=== PATIENT | female | born 1950 | race Caucasian/White ===

== ENCOUNTER 2023-07-16 18:57 | Emergency (ER) | payer MEDICARE, SELFPAY ==
[2023-07-16 19:04] VITALS: BP 105/61
[2023-07-16 20:00] VITALS: BP 99/76
[2023-07-16 20:26] VITALS: BMI 29.2
[2023-07-16 21:00] VITALS: BP 104/52
--- NOTE | 2023-07-16 21:03 | ED.GENMED ---
History of Present Illness
General
Chief Complaint: Weakness
Source: patient
Time Seen by Provider: 07/16/23 20:28
Travel History
Have you had any contact with someone who has COVID-19?: No
Do you have any symptoms of coronavirus? Fever > 100 degrees, chills, cough, shortness of breath, sore throat, loss of taste or smell, muscle aches, or headache?: No
History of Present Illness
History of Present Illness:
This patient is a 72-year-old female who presents to the ER with complaints of feeling like she has not really been able to eat or drink as well as usual for the last 3 to 4 weeks. She describes feeling nauseous, and feels that it is attributable
to the staff feeding her too fast. She alerted staff and was referred for GI follow-up. She saw a GI doctor and has had outpatient workup started, all unremarkable thus far. She denies fever, chills, chest pain dyspnea, abdominal pain. Patient
has colostomy with normal output. She also occasionally will have a bowel movement per rectum which she had this week. She denies pain with swallowing, sore throat, dyspnea, or other complaints
Past History
Past History
ED Past Medical History: HTN and Other (heart failure)
ED Past Surgical History: Bowel resection
Social History
Tobacco: Non-smoker
Alcohol: None
Drug: None
Living: jail
Phy Exam
Physical Exam
Physical Exam:
GENERAL: Alert , in no apparent distress
EYE: pupils equal and reactive
NECK: Supple, no significant adenopathy.
ENT: o/p clr, mm dry
CARDIAC: Regular rate and rhythm .
LUNGS: Clear breath sounds bilaterally, no acute respiratory distress, no wheezes/rales/rhonchi
ABDOMEN: Soft, obese, colostomy noted with normal brown output without blood without focal tenderness, no r/g
NEUROLOGICAL: Alert and oriented, grossly nonfocal
SKIN: Warm and dry, skin intact.
MUSCULOSKELETAL: No edema, well perfused.
PSYCH: Normal and appropriate interaction.
Course
Orders/Labs/Results
Orders:
Orders
07/16/23 19:08
Electrocardiogram (*1) Urgent
Reason for Study: Fatigue / Weakness
07/16/23 19:09
EKG- Treatment ONCE
07/16/23 22:37
Complete Blood Count/With Diff Urgent
Comprehensive Metabolic Panel Urgent
Troponin I Urgent
07/16/23 23:40
Sodium Zirconium Cyclosilicate [Lokelma] 10 gram PO NOW STA
Abnormal Lab Results
07/16/23
22:37
MCV 76.9 L fL
(81.0-99.0)
MCH 24.9 L pg
(27.0-31.0)
MCHC 32.3 L g/dL
(33.0-37.0)
RDW 17.2 H %
(11.5-14.5)
Abs Immat Gran (auto) 0.1 H 10^3/uL
(0-0.05)
Absolute Lymphs (auto) 1.0 L 10^3/uL
(1.2-3.4)
Immature Gran % 1.0 H %
(0-0.5)
Lymphocytes % 17.2 L %
(20.5-51.1)
Sodium 131 L mmol/L
(135-145)
Potassium 5.7 H mmol/L
(3.5-5.1)
Creatinine 0.4 L mg/dL
(0.6-1.0)
Calcium 10.4 H mg/dl
(8.4-10.2)
07/16/23 22:37
07/16/23 22:37
Vital Signs
Initial and Last Documented VS:
Initial Vital Signs
Pulse Resp BP Pulse Ox
84 17 105/61 98
07/16/23 19:04 07/16/23 19:04 07/16/23 19:04 07/16/23 19:04
Last Documented Vital Signs
Pulse Resp BP Pulse Ox
83 18 115/66 97
07/16/23 22:30 07/16/23 22:30 07/16/23 22:30 07/16/23 22:30
*Critical Care Note
Total Time (30-74mins, 75-104mins- exclusive of procedures): Not Applicable
Update Note
Update Note:
Patient presents to the Emergency Department with NAUSEA
Number and Complexity of Problems Addressed at the Encounter
� Chronic conditions affecting care:
� Acute Exacerbation and/or Progression of Chronic Illness:
� Differential Diagnosis included but not limited to: gastritis, gastroenteritis, etc.
Amount and/or Complexity of Data to be Reviewed and Analyzed
� I performed an independent evaluation of and my interpretation is:
EKG: Read by me, normal sinus rhythm, normal rate, normal axis, slightly prolonged QT, no widened QRS, etc. to suggest severe hyperkalemia
CT:
Xrays:
Laboratory Studies: Generally unremarkable, mild hyperkalemia noted. Medication list describes patient taking potassium supplement, she is advised to discontinue this until further notice
Other:
� Review of other/old records reveals:
� Clinical information was obtained by an independent historian:
� Prescriptions/Medications Considered but not given:
� Further testing considered but not performed:
Risk of Complications and/or Morbidity or Mortality of Patient Management
� Social determinants of health affecting care:
� Discussion with other providers (PCP, Hospitalists, Consultants, etc):
� Escalation of care including admission/observation vs risk of discharge considered: Patient comfortable here, pleasant, no acute symptoms, no vomiting, no abdominal tenderness. Mild hyperkalemia noted, will administer dose of
Lokelma here, advised to discontinue potassium supplements until further notice, discussed with patient importance of follow-up and reasons return to the ER
ED Attending Note
-
Portions of this chart may have been created with voice recognition software.� Occasional wrong word or��sound alike� substitutions may have occurred due to the inherent limitations of voice recognition software.
Discharge Plan
Departure
Patient Disposition: Home (Routine Discharge)
Date of Disposition: 07/16/23
Time of Disposition: 23:40
Patient with high blood pressure during this ER visit?: No
Condition: Good
Discharge Problem:
Nausea, mild hyperkalemia
Instructions: Hyperkalemia
Prescriptions:
No Action
methocarbamol 500 mg Tablet
500 mg PO Q12H PRN (Reason: muscle spasms)
acetaminophen 325 mg Tablet
650 mg PO Q6H PRN (Reason: mild pain/temp>100.4)
loperamide [Imodium A-D] 2 mg Capsule
2 mg PO Q8H PRN (Reason: loose stools)
ondansetron HCl [Zofran] 8 mg Tablet
8 mg PO Q8H PRN (Reason: nausea/vomiting)
amlodipine 5 mg Tablet
5 mg PO DAILY
cranberry extract 250 mg Capsule
500 mg PO BID
magnesium hydroxide [Milk of Magnesia] 400 mg/5 mL Suspension
30 ml PO DAILY PRN (Reason: if no bm x 3 days)
methotrexate sodium 2.5 mg Tablet
7.5 mg PO MO
phenazopyridine 100 mg Tablet
100 mg PO DAILY
torsemide 5 mg Tablet
5 mg PO DAILY
hydrocortisone 1 % Cream
1 applic TOPICAL Q12 PRN (Reason: itching on bilateral LEs)
ferrous sulfate 325 mg (65 mg iron) Tablet
325 mg PO DAILY
metoprolol tartrate 50 mg Tablet
50 mg PO BID
docusate sodium 100 mg Capsule
100 mg PO DAILY PRN (Reason: constipation)
gentamicin 0.1 % Cream
1 applic TOPICAL DAILY
Patient Comments:
07/16/2023: apply to abdominal woulds
folic acid 1 mg Tablet
1 mg PO DAILY
magnesium 250 mg Tablet
250 mg PO DAILY
hydroxychloroquine 200 mg Tablet
400 mg PO BID
simethicone 80 mg Tablet,Chewable
80 mg PO BID
guaifenesin 400 mg Tablet
400 mg PO BID
Saccharomyces boulardii [Probiotic (S.boulardii)] 250 mg Capsule
250 mg PO DAILY
duloxetine 60 mg Capsule,Delayed Release(Dr/Ec)
60 mg PO DAILY
diclofenac sodium 1 % Gel
2 g TOPICAL BID
Patient Comments:
07/16/2023: apply to lower back
melatonin 5 mg Tablet
5 mg PO HS
cholecalciferol (vitamin D3) 1,250 mcg (50,000 unit) Tablet
1,250 mcg PO TH
potassium chloride 20 mEq Tablet Extended Release
20 meq PO DAILY
Tacrolimus 0.1% cream
1 applic topical DAILY
Patient Comments:
07/16/2023: apply to abdominal wounds. mix with gentamicin compound
Referrals:
Shiv Hall, DO [Family Provider] -
Activity Restrictions/Additional Instructions:
IF YOU ARE TAKING POTASSIUM SUPPLEMENTS, YOU SHOULD DISCONTINUE THEM FOR THE NEXT 3 DAYS. YOU SHOULD HAVE YOUR POTASSIUM CHECKED IN 3 DAYS AND YOUR DOCTOR WILL DISCUSS WITH YOU A PLAN REGARDING IF/WHEN TO RESUME POTASSIUM.
IF YOU DEVELOP RECURRENT VOMITING, BLEEDING, CHEST PAIN, TROUBLE BREATHING, FEVER, ABDOMINAL PAIN, OR OTHER WORRISOME SIGNS, GO TO THE ER IMMEDIATELY!
Interventions
Interventions:
*Risk Screen - Suicide Last Done: 07/16/23 20:26
*General Assessment Last Done: 07/16/23 19:09
*Neglect/Abuse Screening Last Done: 07/16/23 20:26
ED- Fall Risk Assessment Last Done: 07/16/23 19:09
*ED COVID-19 Vaccine History Last Done: 07/16/23 19:09
ED- Cardiac Assessment Last Done: 07/16/23 19:09
ED- Neurological Assessment Last Done: 07/16/23 19:09
ED- Pulmonary Assessment Last Done: 07/16/23 19:09
Discharge Date and Time
Print Language: NEPALESE
[2023-07-16 22:30] VITALS: BP 115/66
[2023-07-16 22:46] LABS: % Basophils 0.5 % (0-2); % Lymphocytes 17.2 % (20.5-51.1); % Monocytes 8.3 % (1.7-9.3); Absolute Immature Granulocytes 0.1 10^3/uL (0-0.05); Absolute Monocytes 0.5 10^3/uL (0.1-0.6); Absolute Neutrophils 4.4 10^3/uL (1.4-6.5); Hematocrit 39.3 % (37.0-47.0); Hemoglobin 12.7 g/dL (12.0-16.0); Mean Corp Hgb Conc. 32.3 g/dL (33.0-37.0); Mean Corpuscular Hgb 24.9 pg (27.0-31.0); Mean Corpuscular Volume 76.9 fL (81.0-99.0); Mean Platelet Volume 9.5 fL (7.4-10.4); Nucleated Red Blood Cells % 0 %; Platelet Count 220 10^3/uL (130-400); Red Blood Cell Count 5.11 10^6/uL (4.20-5.40); Red Cell Dist. Width 17.2 % (11.5-14.5); White Blood Cell Count 6.1 10^3/uL (4.8-10.8)
[2023-07-16 23:00] VITALS: BP 111/54
[2023-07-16 23:03] LABS: ALT (SGPT) < 10 U/L (0-35); AST (SGOT) 26 U/L (14-36); Albumin 3.5 g/dl (3.5-5.0); Alkaline Phosphatase 102 U/L (38-126); Blood Urea Nitrogen 16 mg/dl (7-17); Calcium 10.4 mg/dl (8.4-10.2); Carbon Dioxide 23 mmol/L (22-30); Chloride 103 mmol/L (98-107); Estimated Creatinine Clearance 80 ml/min; Glucose 81 mg/dl (70-99); Potassium 5.7 mmol/L (3.5-5.1); Sodium 131 mmol/L (135-145); Total Bilirubin 0.4 mg/dl (0.2-1.3); Total Protein 6.5 g/dl (6.3-8.2); eGFR > 60.00
[2023-07-16 23:14] LABS: Troponin I 0.016 ng/ml
[2023-07-17] VITALS: BP 105/56
[2023-07-17] MEDS: LOKELMA 10 GRAM PO (00:26)
== END 2023-07-17 01:49 | disposition home or self-care (01) ==
LOC: EMR 18:57
PROVIDERS: Emergency Medicine; EMERGENCY PHYSICIAN Emergency Medicine; FAMILY PHYSICIAN Internal Medicine
DX: R11.0 Nausea (principal); E87.5 Hyperkalemia; I11.0 Hypertensive heart disease with heart failure; I50.9 Heart failure, unspecified; Z93.3 Colostomy status
CPT/HCPCS: 99283; 80053; 84484; 85025; 93005

== ENCOUNTER 2023-07-28 14:08 | Emergency (ER) | payer MEDICARE, SELFPAY ==
[2023-07-28] VITALS (10 sets, daily range): BP systolic 80–106; BP diastolic 28–64; BMI 29.1
[2023-07-28 14:32] LABS: % Basophils 0.8 % (0-2); % Immature Granulocytes 2.2 % (0-0.5); % Lymphocytes 21.6 % (20.5-51.1); % Monocytes 9.4 % (1.7-9.3); Absolute Immature Granulocytes 0.1 10^3/uL (0-0.05); Absolute Lymphocytes 1.1 10^3/uL (1.2-3.4); Absolute Monocytes 0.5 10^3/uL (0.1-0.6); Absolute Neutrophils 3.3 10^3/uL (1.4-6.5); Hematocrit 38.8 % (37.0-47.0); Hemoglobin 12.3 g/dL (12.0-16.0); Mean Corp Hgb Conc. 31.7 g/dL (33.0-37.0); Mean Corpuscular Hgb 24.5 pg (27.0-31.0); Mean Corpuscular Volume 77.1 fL (81.0-99.0); Mean Platelet Volume 9.3 fL (7.4-10.4); Nucleated Red Blood Cells % 0 %; Platelet Count 291 10^3/uL (130-400); Red Blood Cell Count 5.03 10^6/uL (4.20-5.40); Red Cell Dist. Width 17.1 % (11.5-14.5)
[2023-07-28 15:54] LABS: ALT (SGPT) < 10 U/L (0-35); AST (SGOT) 26 U/L (14-36); Albumin 3.2 g/dl (3.5-5.0); Alkaline Phosphatase 89 U/L (38-126); Blood Urea Nitrogen 18 mg/dl (7-17); Calcium 10.3 mg/dl (8.4-10.2); Carbon Dioxide 24 mmol/L (22-30); Chloride 105 mmol/L (98-107); Estimated Creatinine Clearance 76 ml/min; Glucose 86 mg/dl (70-99); Potassium 5.3 mmol/L (3.5-5.1); Sodium 134 mmol/L (135-145); Total Bilirubin 0.3 mg/dl (0.2-1.3); Total Protein 6.3 g/dl (6.3-8.2); eGFR > 60.00
--- NOTE | 2023-07-28 16:19 | ED.GENMED ---
History of Present Illness
General
Chief Complaint: Abdominal Symptoms
Time Seen by Provider: 07/28/23 15:16
Travel History
Have you had any contact with someone who has COVID-19?: No
Do you have any symptoms of coronavirus? Fever > 100 degrees, chills, cough, shortness of breath, sore throat, loss of taste or smell, muscle aches, or headache?: No
History of Present Illness
History of Present Illness:
72-year-old female with history of hypertension, hyperlipidemia, and rheumatoid arthritis presents to the emergency department for evaluation of abdominal pain over the past week as well as rectal stool output during that time. She states she has
had infrequent episodes of rectal bowel movements but never lasted more than a day, this has been consistent for the past week. She also feels as though her ileostomy output is increased. She was seen in this emergency department just over 1 week
ago for nausea and continually feels nauseous and has poor oral intake as a result. She is not certain why she has an ileostomy or what the initial surgery was performed for, states this was done initially about 10 years ago at [facility]
[place]
Past History
Past History
ED Past Medical History: HTN and Other (heart failure)
ED Past Surgical History: Bowel resection
Social History
Tobacco: Non-smoker
Alcohol: None
Drug: None
Living: [facility]
Review of Systems
Review of Systems
Allergies reviewed?: Yes
All Other Systems: ROS reviewed and negative except as documented in HPI and ROS
Phy Exam
Physical Exam
Physical Exam:
GEN: Well appearing, NAD, WDWN
Eyes: PERRLA, EOMs intact, no scleral icterus
HENT: NCAT, oral mucosa moist
Lungs: CTAB, no wheezes, rales, rhonchi, normal chest wall excursion
Cardiac: RRR, no M/R/G, no peripheral edema. Radial pulses 2+ bilat
Abdomen: Obesity limits exam, she has moderate suprapubic and left lower quadrant tenderness, no rigidity
Neuro: AO x 3
MSK: No gross deformity or ecchymosis. No edema. No digital clubbing
Skin: No rashes, petechiae. Normal color, no pallor or jaundice.
Psych: Calm, cooperative, proper hygiene
Course
Orders/Labs/Results
Orders:
Orders
07/28/23 14:21
Complete Blood Count/With Diff Urgent
07/28/23 15:33
CT Abd/Pel (IV only)-DH only Urgent
Comment:
Reason For Exam: abd pain, hx of colostomy, discharge from rectum
Comprehensive Metabolic Panel Urgent
Abnormal Lab Results
07/28/23 07/28/23
14:21 15:33
MCV 77.1 L fL
(81.0-99.0)
MCH 24.5 L pg
(27.0-31.0)
MCHC 31.7 L g/dL
(33.0-37.0)
RDW 17.1 H %
(11.5-14.5)
Abs Immat Gran (auto) 0.1 H 10^3/uL
(0-0.05)
Absolute Lymphs (auto) 1.1 L 10^3/uL
(1.2-3.4)
Immature Gran % 2.2 H %
(0-0.5)
Monocytes % 9.4 H %
(1.7-9.3)
Sodium 134 L mmol/L
(135-145)
Potassium 5.3 H mmol/L
(3.5-5.1)
BUN 18 H mg/dl
(7-17)
Creatinine 0.5 L mg/dL
(0.6-1.0)
Calcium 10.3 H mg/dl
(8.4-10.2)
Albumin 3.2 L g/dl
(3.5-5.0)
07/28/23 14:21
07/28/23 15:33
Vital Signs
Initial and Last Documented VS:
Initial Vital Signs
Temp Pulse Resp Pulse Ox
98.1 F 74 18 98
07/28/23 14:11 07/28/23 14:11 07/28/23 14:11 07/28/23 14:11
Last Documented Vital Signs
Temp Pulse Resp BP Pulse Ox
98.1 F 73 12 98/47 98
07/28/23 14:11 07/28/23 16:15 07/28/23 16:15 07/28/23 16:00 07/28/23 14:11
MDM/Problems Addressed
MDM/Problems Addressed:
Patient is found to have descending colitis, uncertain etiology to this given that she has an ileostomy. We attempted to obtain a stool specimen in the emergency department however we were unsuccessful. Do not feel that sending an ileostomy
specimen would be appropriate. Her labs are reassuring, her potassium is improved since her last visit. She will continue to hold potassium supplementation at home. Antibiotic options limited due to medication interactions, given multitude of QT
prolonging agents we will avoid fluoroquinolones. Will start her on Augmentin, advised nursing facility to hold her next dose of methotrexate due to interaction. Ideally they would also collect a stool specimen however would not be overly
optimistic given the lack of reliability of rectal stool output in this case. In regards to her nausea I would expect this to improve with antibiotic treatment for her colitis. She is suitable for outpatient management does not require
hospitalization
*Critical Care Note
Total Time (30-74mins, 75-104mins- exclusive of procedures): Not Applicable
ED Attending Note
-
Portions of this chart may have been created with voice recognition software.� Occasional wrong word or��sound alike� substitutions may have occurred due to the inherent limitations of voice recognition software.
Discharge Plan
Departure
Patient Disposition: Home (Routine Discharge)
Date of Disposition: 07/28/23
Time of Disposition: 18:01
Patient with high blood pressure during this ER visit?: No
Discharge Problem:
Colitis
Instructions: Colitis (DC)
Prescriptions:
New
amoxicillin-pot clavulanate 875-125 mg tablet
1 tab PO BID 7 Days Qty: 14 0RF
No Action
methocarbamol 500 mg Tablet
500 mg PO Q12H PRN (Reason: muscle spasms)
acetaminophen 325 mg Tablet
650 mg PO Q6H MDD 3000 mg PRN (Reason: mild pain/temp>100.4)
ondansetron HCl [Zofran] 8 mg Tablet
8 mg PO Q8H PRN (Reason: nausea/vomiting)
amlodipine 5 mg Tablet
5 mg PO DAILY
cranberry extract 250 mg Capsule
500 mg PO BID
magnesium hydroxide [Milk of Magnesia] 400 mg/5 mL Suspension
30 ml PO DAILY PRN (Reason: if no BM x 3 days)
methotrexate sodium 2.5 mg Tablet
7.5 mg PO DIRECTED
Rx Instructions:
07/28/2023, give 3 tablets by mouth two times a day every Friday for arthritis.
phenazopyridine 100 mg Tablet
100 mg PO DAILY
torsemide 5 mg Tablet
5 mg PO DAILY
hydrocortisone 1 % Cream
1 applic TOPICAL [id number] PRN (Reason: itching on bilateral LEs)
ferrous sulfate 325 mg (65 mg iron) Tablet
325 mg PO DAILY
metoprolol tartrate 50 mg Tablet
50 mg PO BID
Patient Comments:
07/28/2023, hold for SBP<100 or HR<60.
docusate sodium 100 mg Capsule
100 mg PO DAILY PRN (Reason: constipation)
gentamicin 0.1 % Cream
1 applic TOPICAL DAILY
folic acid 1 mg Tablet
1 mg PO DAILY
magnesium 250 mg Tablet
250 mg PO DAILY
hydroxychloroquine 200 mg Tablet
400 mg PO BID
simethicone 80 mg Tablet,Chewable
80 mg PO BID
guaifenesin 400 mg Tablet
400 mg PO BID
duloxetine 60 mg Capsule,Delayed Release(Dr/Ec)
60 mg PO DAILY
Rx Instructions:
07/28/2023, take with 30 mg for a total of 90 mg.
diclofenac sodium 1 % Gel
2 - 4 g TOPICAL BID
cholecalciferol (vitamin D3) 1,250 mcg (50,000 unit) Tablet
1,250 mcg PO TH
Tacrolimus 0.1% 0.1 % cream
1 applic topical DAILY
Patient Comments:
07/28/2023: apply to abdominal wounds; mix with gentamicin compound.
loperamide [Imodium A-D] 2 mg Tablet
4 mg PO Q8HPRN PRN (Reason: loose stools)
potassium chloride 20 mEq tablet,ER particles/crystals
20 meq PO DAILY
duloxetine 30 mg Capsule,Delayed Release(Dr/Ec)
30 mg PO DAILY
Rx Instructions:
07/28/2023, take with 60 mg for a total of 90 mg.
melatonin 5 mg Capsule
5 mg PO HS
Referrals:
NONE,* [Family Provider] -
Activity Restrictions/Additional Instructions:
If possible, a stool culture should be sent before she starts the Augmentin. This was attempted in the ER without success. A specimen must be sent from the rectum, NOT THE ILEOSTOMY
Johanna's next dose of METHOTREXATE should be held due to interaction with Augmentin
Interventions
Interventions:
*General Assessment Last Done: 07/28/23 14:11
*Neglect/Abuse Screening Last Done: 07/28/23 14:11
ED- Fall Risk Assessment Last Done: 07/28/23 14:11
*ED COVID-19 Vaccine History Last Done: 07/28/23 14:11
WX-Wgbwxp-Nnjckelskw Assessment Last Done: 07/28/23 14:11
Discharge Date and Time
Print Language: TURKMEN
[2023-07-28] MEDS: NSS 500 IV (19:22)
== END 2023-07-28 19:55 | disposition home or self-care (01) ==
LOC: EMR 14:08
PROVIDERS: Emergency Medicine; EMERGENCY PHYSICIAN Emergency Medicine
DX: K52.9 Noninfective gastroenteritis and colitis, unspecified (principal); I11.0 Hypertensive heart disease with heart failure; I50.89 Other heart failure; M06.9 Rheumatoid arthritis, unspecified; E78.5 Hyperlipidemia, unspecified
CPT/HCPCS: 99285; 96360; 74177; 80053; 85025; Q9967

== ENCOUNTER 2023-08-13 18:31 | Inpatient (IN) | payer MEDICARE, SELFPAY ==
[2023-08-13 15:33] VITALS: BP 103/65; BMI 25.8
--- NOTE | 2023-08-13 15:48 | ED.GENMED ---
History of Present Illness
General
Chief Complaint: Swallowing Problem
Source: patient
Time Seen by Provider: 08/13/23 15:31
Travel History
Have you had any contact with someone who has COVID-19?: No
Do you have any symptoms of coronavirus? Fever > 100 degrees, chills, cough, shortness of breath, sore throat, loss of taste or smell, muscle aches, or headache?: No
History of Present Illness
History of Present Illness:
72-year-old female presents from [facility] with worsening and ongoing dysphagia. She states has been going on for 7 weeks. She states she is losing weight. She is really only able to tolerate water and nothing else solid. She gags at times
eats. She denies fevers or shortness of breath. Nurses called EMS from facility and brought her here for evaluation. She denies pain in her throat when swallowing. She denies abdominal pain currently. No other complaints at this time
Past History
Past History
ED Past Medical History: HTN and Other (heart failure)
ED Past Surgical History: Bowel resection
Social History
Tobacco: Non-smoker
Alcohol: None
Drug: None
Living: pen[facility]
Phy Exam
Physical Exam
Physical Exam:
General: Pale appearing female no acute respiratory distress
HEENT: Normocephalic atraumatic posterior pharynx without erythema neck is supple
Heart: Regular rate and rhythm no murmurs
Lungs: Clear no wheeze or rales
Abdomen: Soft nontender nondistended no guarding or rebound
Extremities: No cyanosis
Course
Orders/Labs/Results
Orders:
Orders
08/13/23 15:54
Complete Blood Count/With Diff Urgent
Comprehensive Metabolic Panel Urgent
Ferritin Urgent
Comment: ADD ON
Folate Urgent
Comment: ADD ON
Iron Urgent
Comment: ADD ON
Manual Differential Urgent
Total Iron Binding Urgent
Comment: ADD ON
Vitamin B12 Urgent
Comment: ADD ON
08/13/23 17:26
Add On- LAB Urgent
Tests Added?: iron tibc, ferritin ,b12 folate
08/13/23 17:55
Admit/Transfer Patient As Directed
Co-Sign Provider:
Level of Care: Inpatient admission
Assign to:: Medical/Surgical
Physician / Group: hal tate
Diagnosis: Acute dysphagia, oral thrush, recent C. difficile
Reason for Hospitalization: Acute dysphagia, oral thrush, recent C. difficile
Expected length of stay greater than two midnights?: Yes
ELOS- Estimated Length of Stay in days: 3
I certify the patient meets the requirements for IP care: Yes
Code Status As Directed
Resuscitation Status: Full Code
08/13/23 18:[address] Non Medication Order As Directed
Physician Order: meds crushed with pudding
08/13/23 18:09
GASTROINTESTINAL CONSULT Routine
Consulting Provider: Enedina Sidhu
Was physician already notified: Yes
Reason for consult: Dysphagia
08/13/23 18:34
0.9% Sodium Chloride 1000 ml [Nss] 1,000 ml IV 60 mls/hr
08/13/23 18:34
Activity As Directed
Activity Level: Bedrest
Comment: pt is bedbound
Intake/ Output As Directed
Frequency: Per unit guidelines
Vital Signs As Directed
Frequency: Per unit guidelines
Weight As Directed
Frequency: Daily
Ot Eval And Treat Routine
Pt Eval And Treat Routine
Treatment: pt is bedbound
Activity Level: Bedrest
DX Deep Vein Thrombosis Video Routine
08/13/23 18:45
Enoxaparin Sodium [Lovenox] 40 mg SC QPM
Vancomycin HCl [Firvanq] 125 mg PO Q6
08/13/23 20:00
Diclofenac 1% Topical Gel 2 - 4 gram TOPICAL BID
Apply 2 or 4 grams as per protocol to the following joints:: Other joint(s)
Other joint/location to apply to:: back
Grams to be applied to other indicated joint/location:: 2gm
Hydroxychloroquine [Plaquenil] 400 mg PO BID
Metoprolol [Lopressor] 50 mg PO BID
08/13/23 22:00
Nystatin Suspension [Mycostatin Oral Suspension] 5 ml PO QID
08/14/23 07:53
Basic Metabolic Panel IN AM
Complete Blood Count/With Diff IN AM
08/14/23 08:00
Duloxetine Delayed Release [Cymbalta Delayed Release] 30 mg PO DAILY
Duloxetine Delayed Release [Cymbalta Delayed Release] 60 mg PO DAILY
Pantoprazole [Protonix IV] 40 mg IV DAILY
08/14/23 18:06
CR Chest - 2 Views Urgent
Reason For Exam: dysphagia
08/15/23 06:00
Basic Metabolic Panel IN AM
Complete Blood Count/With Diff IN AM
Abnormal Lab Results
08/13/23
15:54
WBC 3.0 L 10^3/uL
(4.8-10.8)
Hgb 10.8 L g/dL
(12.0-16.0)
Hct 35.6 L %
(37.0-47.0)
MCV 80.2 L fL
(81.0-99.0)
MCH 24.3 L pg
(27.0-31.0)
MCHC 30.3 L g/dL
(33.0-37.0)
RDW 17.5 H %
(11.5-14.5)
Monocytes (Manual) 12 H %
(2-9)
Sodium 132 L mmol/L
(135-145)
Carbon Dioxide 21 L mmol/L
(22-30)
Creatinine 0.4 L mg/dL
(0.6-1.0)
TIBC 214 L ug/dl
(265-497)
% Saturation 18 L %
(20-50)
Alkaline Phosphatase 264 H U/L
(38-126)
Total Protein 5.9 L g/dl
(6.3-8.2)
Albumin 2.9 L g/dl
(3.5-5.0)
Folate > 20.0 H ng/ml
(2.76-20)
08/13/23 15:54
08/13/23 15:54
Vital Signs
Initial and Last Documented VS:
Initial Vital Signs
Temp Pulse Resp BP Pulse Ox
98.4 F 96 22 103/65 100
08/13/23 15:33 08/13/23 15:33 08/13/23 15:33 08/13/23 15:33 08/13/23 15:33
Last Documented Vital Signs
Temp Pulse Resp BP Pulse Ox
98.1 F 79 16 107/49 98
08/14/23 07:00 08/14/23 08:15 08/14/23 07:00 08/14/23 08:15 08/14/23 07:00
MDM/Problems Addressed
Differential Diagnosis Includes:
Ongoing difficulty swallowing. Question mechanical issue versus neurologic issue. On question reflux. She is able to drink water but has poor success with solid food. She notes she is losing weight. Will check for electrolyte abnormality or
anemia.
*Critical Care Note
Total Time (30-74mins, 75-104mins- exclusive of procedures): Not Applicable
Update Note
Update Note:
Discussed with emergency room attending as well as GI. GI recommended esophagram. Esophagram ordered however test not able to be done at this hour. Patient has a noted 9 pound weight loss in 2 weeks as well as a over a gram drop in her hemoglobin
since 2 weeks ago. COVID to hospital for weight loss in the setting of worsening dysphagia
ED Attending Note
-
Portions of this chart may have been created with voice recognition software.� Occasional wrong word or��sound alike� substitutions may have occurred due to the inherent limitations of voice recognition software.
Discharge Plan
Departure
Patient Disposition: Admit
Date of Disposition: 08/13/23
Time of Disposition: 17:17
Admit to: Med/Surg and Telemetry
Presentation/result/management discussed w/ accepting MD/DO: Hospitalist
Discharge Problem:
Dysphagia
Interventions
Interventions:
*Risk Screen - Suicide Last Done: 08/13/23 15:37
*General Assessment Last Done: 08/13/23 15:37
*Neglect/Abuse Screening Last Done: 08/13/23 15:37
ED- Fall Risk Assessment Last Done: 08/13/23 18:33
*ED COVID-19 Vaccine History Last Done: 08/13/23 15:37
*Nursing Disposition Last Done: 08/13/23 18:33
ED-EENT Assessment Last Done: 08/13/23 15:50
SN-Lwkrkr-Vntrkcnira Assessment Last Done: 08/13/23 15:51
ED- Pulmonary Assessment Last Done: 08/13/23 15:50
ED- Neurological Assessment Last Done: 08/13/23 15:50
Discharge Date and Time
Discharge Date/Time: 08/13/23 18:34
[2023-08-13 16:04] LABS: Hematocrit 35.6 % (37.0-47.0); Hemoglobin 10.8 g/dL (12.0-16.0); Mean Corp Hgb Conc. 30.3 g/dL (33.0-37.0); Mean Corpuscular Hgb 24.3 pg (27.0-31.0); Mean Corpuscular Volume 80.2 fL (81.0-99.0); Platelet Count 214 10^3/uL (130-400); Red Blood Cell Count 4.44 10^6/uL (4.20-5.40); Red Cell Dist. Width 17.5 % (11.5-14.5)
[2023-08-13 16:17] LABS: ALT (SGPT) 12 U/L (0-35); AST (SGOT) 29 U/L (14-36); Albumin 2.9 g/dl (3.5-5.0); Alkaline Phosphatase 264 U/L (38-126); Blood Urea Nitrogen 16 mg/dl (7-17); Calcium 9.9 mg/dl (8.4-10.2); Carbon Dioxide 21 mmol/L (22-30); Chloride 104 mmol/L (98-107); Estimated Creatinine Clearance 71 ml/min; Glucose 93 mg/dl (70-99); Potassium 3.9 mmol/L (3.5-5.1); Sodium 132 mmol/L (135-145); Total Bilirubin 0.4 mg/dl (0.2-1.3); Total Protein 5.9 g/dl (6.3-8.2); eGFR > 60.00
[2023-08-13 16:40] LABS: Absolute Neutrophils -Man Diff 1.5 10^3/uL (1.4-6.5); Band Neutrophils 0 % (0-3); Lymphocytes 35 % (20-51); Metamyelocytes 1 % (-); Monocytes 12 % (2-9); Myelocytes 1 % (-); Normal RBC Morphology Yes; Platelets Checked Yes; Segmented Neutrophils 51 % (42-75); Total Cells Counted 100
--- NOTE | 2023-08-13 17:21 | HPS.HSE ---
Family Physician
-
Family Physician: Shiv Hall, DO
Chief Complaint
-
Acute on chronic dysphagia unable to tolerate solids only water and mashed potatoes, weight loss
History of Present Illness
72-year-old female from [facility] with acute on chronic dysphagia. She typically is able to tolerate a dysphagia diet but can only tolerate water and mashed potatoes over the past month. She reportedly prior to 1 month ago had a
swallow eval and was placed on a mechanical soft diet but she states the penitentiary was not really giving it to her. She also can drink Ensure 8 ounces daily with help. She reports she has been coughing and choking with her medications crushed
in applesauce but they have not tried any pudding. She has white thrush appearing tongue but denies any painful swallowing although when she swallows she said as soon as it hits her esophagus area that is when she has difficulty swallowing the food
and coughs it up. She has had a 9 pound weight loss in the past 2 weeks. She reports she had C. difficile and has been on oral vancomycin starting 08/06 - 08/17/2023. She is past medical history of hypertension, bowel resection with ostomy, CHF,
HTN, HLD, GERD, rheumatoid arthritis with deformities of all fingers at PIP joints, only able to lift arms to clavicle area bilaterally, depression, nonambulatory, chronic external rotation right hip
Medical History
Past Medical History
Past Medical History: Reports Other
Additional Past Medical History:
Chronic dysphagia
C. difficile on oral Vanco 08/06 - 08/17/2023
hypertension
HLD
CHF
GERD
RA on methotrexate with deformities of all fingers at PIP joints, only able to lift arms to clavicle area bilaterally,
Depression
bowel resection with ostomy
Past Surgical History: Reports Other
Additional Past Surgical History:
Knee surgery
Bilateral hip replacements with chronic right foot external rotation
Shoulder surgery
Bowel resection with colostomy
Back surgery
Cholecystectomy
Social History
Tobacco: Non-smoker
Alcohol: None
Drug: None
Personal: Single
Living: Residential ([facility])
Employment: Retired
Family History
Family History: Not pertinent
Allergies / Home Medications
Allergies reflects when Allergies were last updated in [facility].
Home Medications with original date entered in [facility]
Allergy/Medication List:
Allergies
Allergy/AdvReac Type Severity Reaction Status Date / Time
No Known Allergies Allergy Verified 07/28/23 19:17
Home Medications
Tacrolimus 0.1% 1 applic topical DAILY abd wounds 07/16/23
acetaminophen 325 mg tablet 650 mg PO Q6H PRN mild pain/temp>100.4 07/16/23
amlodipine 5 mg tablet 5 mg PO DAILY 07/16/23
diclofenac sodium 1 % topical gel 2 - 4 g topical BID lower back 07/16/23
docusate sodium 100 mg capsule 100 mg PO DAILY PRN constipation 07/16/23
duloxetine 60 mg capsule,delayed release 60 mg PO DAILY 07/16/23
folic acid 1 mg tablet 1 mg PO DAILY 07/16/23
gentamicin 0.1 % topical cream 1 applic topical DAILY abd wounds 07/16/23
hydrocortisone 1 % topical cream 1 applic topical [id number] PRN itching on bilateral LEs 07/16/23
hydroxychloroquine 200 mg tablet 400 mg PO BID 07/16/23
magnesium hydroxide 400 mg/5 mL oral suspension (Milk of Magnesia) 30 ml PO DAILY PRN if no BM x 3 days 07/16/23
methocarbamol 500 mg tablet 500 mg PO Q12H PRN muscle spasms 07/16/23
methotrexate sodium 2.5 mg tablet 7.5 mg PO MO 07/16/23
metoprolol tartrate 50 mg tablet 50 mg PO BID 07/16/23
ondansetron HCl 8 mg tablet 8 mg PO Q8H PRN nausea/vomiting 07/16/23
phenazopyridine 100 mg tablet 100 mg PO DAILY 07/16/23
torsemide 5 mg tablet 5 mg PO DAILY 07/16/23
duloxetine 30 mg capsule,delayed release 30 mg PO DAILY 07/28/23
melatonin 5 mg capsule 5 mg PO HS 07/28/23
Saccharomyces boulardii 250 mg capsule 250 mg PO DAILY 08/13/23
colestipol 5 gram oral packet 2 g PO DAILY 08/13/23
vancomycin 125 mg capsule 125 mg PO QID 08/13/23
Review of Systems
-
History Source: Patient
A 12 point ROS was completed and negative except as noted: Yes
Constitutional: Reports Weight Loss (9 pounds in the past 2 weeks); Denies Fever or Chills
EENT: Reports Runny Nose and Other (Dysphagia, thrush to tongue); Denies Sore Throat
Respiratory: Denies Cough or Trouble Breathing
Cardiac: Denies Chest Pain, Diaphoresis, Palpitations or Syncope
Abdomen/GI: Reports Other (Ostomy present); Denies Abdominal Pain, Nausea, Vomiting, Diarrhea or Constipated
: Denies Dysuria, Frequency, Flank Pain or Incontinence
Musculoskeletal: Reports Other ( RA with deformities of all fingers at PIP joints, only able to lift arms to clavicle area bilaterally, chronic bedbound); Denies Joint Pain
Skin: Denies Itching or Rash
Neurological: Denies Dizzy, Headache or Weakness
Endocrine: Reports No Symptoms
Hematologic/Lymphatic: Reports No Symptoms
Psych: Reports Calm
Physical Exam
Vital Signs
Vital Signs
Temp Pulse Resp BP Pulse Ox
98.4 F 94 15 103/65 96
08/13/23 15:33 08/13/23 16:45 08/13/23 16:45 08/13/23 15:33 08/13/23 16:45
Physical Exam
General: No Pain, Fever or Chills
HEENT: NormoCephalic, Anicteric, PERRLA, No Ptosis and Other (Thrush appearance to tongue)
Respiratory: Clear; No Wheezes, Rales or Rhonchi
Cardiac: S1/S2 and Regular Rhythm
GI: Soft, Non Tender, Non Distended, Normal Bowel Sounds, No Hepatosplenomegaly and Ostomy
Rectal: Other (Ostomy present)
Musculoskeletal: No Clubbing, No Cyanosis, No Edema and Other ( RA with deformities of all fingers at PIP joints, only able to lift arms to clavicle area bilaterally, chronic bedbound)
Neuro: AO x 3 and Other ( RA with deformities of all fingers at PIP joints, only able to lift arms to clavicle area bilaterally unable to feed self without assistance); No Slurred Speech, Facial Droop or Tremors
Psych: Calm
Laboratory Results
-
08/13/23 15:54
08/13/23 15:54
Laboratory Results
Total Bilirubin 0.4 mg/dl (0.2-1.3) 08/13/23 15:54
AST 29 U/L (14-36) 08/13/23 15:54
ALT 12 U/L (0-35) 08/13/23 15:54
Alkaline Phosphatase 264 U/L (38-126) H 08/13/23 15:54
Impression/Plan
-
Impression/plan:
Admit to MedSurg
#Worsening dysphagia on chronic dysphagia
Was supposed to be on soft diet prior to 1 month ago with Ensure 8 ounces daily
#Weight loss 9 pounds past 2 weeks
N.p.o. except meds crushed with pudding
-Consult GI
-Esophogram in a.m.
-IV NSS
-IV PPI
-Check CXR
-Speech swallow eval
PT/OT/case management consult
#Oral thrush
-Nystatin swish and swallow
#C. difficile according to patient
Is on oral vancomycin 125 mg Q6 08/06 - 08/17/2023
#Anemia-microcytic likely due to lack of nutrition
Hgb 10.8 was 12.02 July 2023
-Will check iron panel, B12, folate
#Hypertension-benign
BP 103/55
Hold amlodipine 5 mg daily,
Continue metoprolol tartrate 50 mg twice daily with hold parameters
#Bedbound status due to deformities feet, weakness
Patient states they use Oleksandr lift to wheelchair occasionally
#HLD
No reported meds
#CHF chronic unknown type
I/O, daily weight
-Hold torsemide 5 mg daily
#GERD
Add IV PPI
#RA with deformities of all fingers at PIP joints, only able to lift arms to clavicle area bilaterally,
-Hold methotrexate takes on Mondays
-Continue hydroxychloroquine 400 mg twice daily
#Chronic lower back pain/spasms
-May apply topical diclofenac sodium
-Hold methocarbamol 500 every 12 hours
#Depression
-Continue duloxetine
#bowel resection with Ostomy
#Insomnia
-Hold melatonin
DVT prophylaxis
Subcu Lovenox
Full code patient states emergency contact is her one of her 3 daughters Justa
--- NOTE | 2023-08-13 18:09 | W.PN.UPDATE ---
Update Note
Progress Note Update
HPI: 72-year-old female from [facility] with PMH hypertension, bowel resection with ostomy, CHF, HTN, HLD, GERD, rheumatoid arthritis with deformities of fingers, depression, nonambulatory/bedbound state, p/w acute on chronic dysphagia.
She had been on pur�ed diet before, but can no longer tolerate it- she feels food stuck in her chest.
She also reports coughing with swallowing medications.
She has oral thrush on her tongue.
She has had a 9 pound weight loss in the past 2 weeks. She reports she had C. difficile and has been on oral vancomycin starting 08/06 through to 08/17/2023.
A/P:
# Acute on chronic dysphagia, associated with weight loss
SPL eval
Consult GI
Esophagram in a.m.
IVF while NPO
IV PPI
Check CXR to r/o extrinsic compression
# Oral thrush
Nystatin swish and swallow
# C. difficile according to patient
on oral vancomycin 125 mg Q6 08/06 - 08/17/2023
# Normocytic Anemia
Follow iron panel, B12, folate levels
# Hypertension benign
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
Continue metoprolol tartrate 50 mg twice daily with hold parameters
# Bedbound status due to extremities deformities from RA
# HLD
No reported meds
# CHF chronic unknown type
I/O, daily weight
Hold torsemide 5 mg daily
# GERD
IV PPI
# RA with finger deformities
Hold methotrexate takes on Mondays
Continue hydroxychloroquine 400 mg twice daily
# Chronic lower back pain/spasms
May apply topical diclofenac sodium
Hold methocarbamol 500 every 12 hours
# Depression
Mood stable
Continue duloxetine
# bowel resection with Ostomy
# Insomnia
Hold melatonin
DVT prophylaxis: Subcu Lovenox
Full code, patient states emergency contact is her one of her 3 daughters Justa
[2023-08-13 18:11] LABS: Iron 39 ug/dl (37-170)
[2023-08-13 18:19] LABS: Percent Saturation 18 % (20-50); Total Iron Binding Capacity 214 ug/dl (265-497)
[2023-08-13 18:53] VITALS: BP 110/90
[2023-08-13 19:30] LABS: Folate > 20.0 ng/ml (2.76-20); Vitamin B12 703 pg/ml (239-931)
[2023-08-13] MEDS: NSS 1000 IV (19:47)
[2023-08-13 19:49] VITALS: BMI 25.8
[2023-08-13 20:03] VITALS: BMI 25.4
[2023-08-13] MEDS: PLAQUENIL 400 MG PO (20:24)
[2023-08-13] MEDS: LOVENOX 40 MG SC (20:24)
[2023-08-13] MEDS: LOPRESSOR 50 MG PO (20:24)
[2023-08-13] MEDS: FIRVANQ 125 MG PO (20:24)
[2023-08-13] MEDS: DICLOFENAC 1% TOPICAL GEL 2 GRAM TOPICAL (20:25)
[2023-08-13] MEDS: MYCOSTATIN ORAL SUSPENSION 5 ML PO (20:26)
[2023-08-13 22:54] VITALS: BP 124/61
[2023-08-14] MEDS: FIRVANQ 125 MG PO ×5 (00:30→23:10)
[2023-08-14 06:00] VITALS: BMI 25.6
[2023-08-14 07:00] VITALS: BP 107/49
[2023-08-14 08:09] LABS: Hematocrit 31.1 % (37.0-47.0); Hemoglobin 9.6 g/dL (12.0-16.0); Mean Corp Hgb Conc. 30.9 g/dL (33.0-37.0); Mean Corpuscular Hgb 24.6 pg (27.0-31.0); Mean Corpuscular Volume 79.5 fL (81.0-99.0); Mean Platelet Volume 10.1 fL (7.4-10.4); Nucleated Red Blood Cells % 1.1 %; Platelet Count 170 10^3/uL (130-400); Red Blood Cell Count 3.91 10^6/uL (4.20-5.40); Red Cell Dist. Width 17.4 % (11.5-14.5); White Blood Cell Count 2.8 10^3/uL (4.8-10.8)
[2023-08-14] MEDS: CYMBALTA DELAYED RELEASE 30 MG PO (08:14)
[2023-08-14] MEDS: CYMBALTA DELAYED RELEASE 60 MG PO (08:14)
[2023-08-14] MEDS: MYCOSTATIN ORAL SUSPENSION 5 ML PO ×4 (08:15→21:36)
[2023-08-14] MEDS: LOPRESSOR 50 MG PO ×2 (08:15→19:45)
[2023-08-14] MEDS: PROTONIX IV 40 MG IV (08:16)
[2023-08-14] MEDS: NSS (PRESERVATIVE FREE) 10 ML IV (08:16)
[2023-08-14] MEDS: DICLOFENAC 1% TOPICAL GEL 2 GRAM TOPICAL ×2 (08:16→19:44)
[2023-08-14] MEDS: PLAQUENIL 400 MG PO ×2 (08:22→19:45)
[2023-08-14 08:35] LABS: Eosinophils 1 % (0-6); Lymphocytes 33 % (20-51); Monocytes 14 % (2-9); Segmented Neutrophils 52 % (42-75)
[2023-08-14 08:39] LABS: Absolute Neutrophils -Man Diff 1.4 10^3/uL (1.4-6.5); Band Neutrophils 0 % (0-3); Normal RBC Morphology Yes; Platelets Checked Yes; Total Cells Counted 100
[2023-08-14 08:40] LABS: Blood Urea Nitrogen 13 mg/dl (7-17); Calcium 9.4 mg/dl (8.4-10.2); Carbon Dioxide 19 mmol/L (22-30); Chloride 109 mmol/L (98-107); Estimated Creatinine Clearance 71 ml/min; Glucose 81 mg/dl (70-99); Potassium 3.7 mmol/L (3.5-5.1); Sodium 135 mmol/L (135-145); eGFR > 60.00
--- NOTE | 2023-08-14 09:27 | CON.GI ---
Addendum entered and electronically signed by Kymberly Ham DO 08/14/23 12:53:
Pt. has prolonged QTc. Will hold on Micafungin and continue with nystatin swish & Swallow, pending further workup and confirmation of juancarlos esophagitis.
Original Note:
Consultation
-
Date/Time Consultation Requested: 08/13/23 7339
Date/Time Consultation Performed: 08/14/23 0940
Requesting Provider: BIBI Qiu
Performing Provider: Dr. Ham / Yolis Clark PA-C
Reason for Consultation: dysphagia
Medical History
Chief Complaint / HPI
Chief Complaint: dysphagia
History of Present Illness:
This is a 72 year old female with a past medical history of RA, HTN, hyperlipidemia who presents to the hospital from [facility] for dysphagia, decreased oral intake and weight loss. Pt reports dysphagia for the past 7 weeks, described
as feeling like food and pills 'get stuck' with associated coughing, choking and often brings the food/pills back up. She tolerates liquids and soft foods (soup, mashed potatoes, etc) without issue. She denies odynophagia. She states symptoms came
on gradually 7 weeks ago, but have worsened and now occur daily. She has lost weight, approximately 9 pounds. She denies any chest pain or abdominal pain. No heartburn, reflux, belching, early satiety, fevers or chills. No prior history of
dysphagia. She has never had an endoscopy. She is a former smoker (quit 35 years ago), denies alcohol or NSAID use. She reports a history of bowel resection and ileostomy, 2015 at [facility], but patient cannot tell me why she had this surgery. She
also notes recent C diff infection, started oral vancomycin on 08/06, and currently has oral thrush. She denies mouth pain currently.
Past Medical History
Past Medical History: HTN, Hypercholesterolemia and Other (RA, bowel resection with ostomy (2014))
Past Surgical History: Bowel Resection (with ostomy, 2014)
Social History
Tobacco: Former Smoker (quit 35 years ago)
Alcohol: None
Drug: None
Living: Group Home
Family History
Family History: Reviewed & Not Pertinent (no family history of GI malignancies)
Allergies / Home Medications
Allergy/AdvReac Type Severity Reaction Status Date / Time
propoxyphene [From Darvon] Allergy Unknown Unverified 08/13/23 19:55
wheat Allergy Unknown Unverified 08/13/23 19:55
�Medication �Instructions �Recorded
Tacrolimus 0.1% 1 applic topical DAILY abd wounds 07/16/23
acetaminophen 325 mg tablet 650 mg PO Q6H PRN mild 07/16/23
pain/temp>100.4
amlodipine 5 mg tablet 5 mg PO DAILY 07/16/23
diclofenac sodium 1 % topical gel 2 - 4 g topical BID lower back 07/16/23
docusate sodium 100 mg capsule 100 mg PO DAILY PRN constipation 07/16/23
duloxetine 60 mg capsule,delayed 60 mg PO DAILY 07/16/23
release
folic acid 1 mg tablet 1 mg PO DAILY 07/16/23
gentamicin 0.1 % topical cream 1 applic topical DAILY abd wounds 07/16/23
hydrocortisone 1 % topical cream 1 applic topical [id number] PRN 07/16/23
itching on bilateral LEs
hydroxychloroquine 200 mg tablet 400 mg PO BID 07/16/23
magnesium hydroxide 400 mg/5 mL 30 ml PO DAILY PRN if no BM x 3 07/16/23
oral suspension (Milk of Magnesia) days
methocarbamol 500 mg tablet 500 mg PO Q12H PRN muscle spasms 07/16/23
methotrexate sodium 2.5 mg tablet 7.5 mg PO MO 07/16/23
metoprolol tartrate 50 mg tablet 50 mg PO BID 07/16/23
ondansetron HCl 8 mg tablet 8 mg PO Q8H PRN nausea/vomiting 07/16/23
phenazopyridine 100 mg tablet 100 mg PO DAILY 07/16/23
torsemide 5 mg tablet 5 mg PO DAILY 07/16/23
duloxetine 30 mg capsule,delayed 30 mg PO DAILY 07/28/23
release
melatonin 5 mg capsule 5 mg PO HS 07/28/23
Saccharomyces boulardii 250 mg 250 mg PO DAILY 08/13/23
capsule
colestipol 5 gram oral packet 2 g PO DAILY 08/13/23
vancomycin 125 mg capsule 125 mg PO QID 08/13/23
Review of Systems
-
History Source: Patient
All other systems: A 12 pt ROS was Negative except as stated above in HPI
Vital Signs
Temp Pulse Resp BP Pulse Ox
98.1 F 79 16 107/49 98
08/14/23 07:00 08/14/23 08:15 08/14/23 07:00 08/14/23 08:15 08/14/23 07:00
Physical Exam
Exam
General: Well Developed, Well Nourished and No Apparent Distress
Respiratory: Clear
Cardiac: Regular Rhythm
GI: Soft, Non Tender, Non Distended, Normal Bowel Sounds and Other (ostomy)
Skin: Warm and Dry
Neuro: AO x 3
Psych: Calm
Results
WBC 2.8 10^3/uL (4.8-10.8) L 08/14/23 07:53
Hgb 9.6 g/dL (12.0-16.0) L 08/14/23 07:53
Hct 31.1 % (37.0-47.0) L 08/14/23 07:53
MCV 79.5 fL (81.0-99.0) L 08/14/23 07:53
Plt Count 170 10^3/uL (130-400) D 08/14/23 07:53
Sodium 135 mmol/L (135-145) 08/14/23 07:53
Potassium 3.7 mmol/L (3.5-5.1) 08/14/23 07:53
Chloride 109 mmol/L (98-107) H 08/14/23 07:53
Carbon Dioxide 19 mmol/L (22-30) L 08/14/23 07:53
BUN 13 mg/dl (7-17) 08/14/23 07:53
Creatinine 0.4 mg/dL (0.6-1.0) L 08/14/23 07:53
Calcium 9.4 mg/dl (8.4-10.2) 08/14/23 07:53
Total Bilirubin 0.4 mg/dl (0.2-1.3) 08/13/23 15:54
AST 29 U/L (14-36) 08/13/23 15:54
ALT 12 U/L (0-35) 08/13/23 15:54
Alkaline Phosphatase 264 U/L (38-126) H 08/13/23 15:54
Diagnostic Image Results:
Barium esophagram pending
Prior GI Procedures:
EGD: Never
Colonoscopy:
2014, 2019 at [facility] - ? pt does not recall findings
Assessment / Plan
-
72 year old female with RA, HTN, hyperlipidemia, prior bowel resection with ileostomy (2014) who presents to the hospital from [facility] for dysphagia, decreased oral intake and weight loss. Pt reports dysphagia for the past 7 weeks,
described as food and pills 'get stuck' with associated coughing, choking and often brings the food/pills back up. She tolerates liquids and soft foods without issue. No odynophagia. Symptoms came on gradually 7 weeks ago, but dysphagia has worsened
and now occurs daily. She has lost approximately 9 pounds in the past 2 weeks. She denies any chest pain or abdominal pain. No heartburn, reflux, belching, early satiety, fevers or chills. No prior endoscopy. Pt is a former smoker (quit 35 years
ago), denies alcohol or NSAID use. She also notes recent C diff infection, started oral vancomycin on 08/06, and currently has oral thrush. Denies any mouth pain currently.
IMPRESSION / PLAN:
Dysphagia x past 7 weeks, worsening, with associated weight loss
-tolerates soft diet
-Speech eval pending
-await the barium esophagram results
-consider endoscopy for further evaluation as she has never had one -- rule out esophagitis (candidal esophagitis high among the differential in this patient with oral thrush, on vancomycin) vs EoE vs Schatzki ring vs malignancy -- to discuss
further with GI physician pending the esophagram results
C difficile (reported per patient)
-continue oral Vancomycin
Microcytic Anemia
-Hgb 9.6 with microcytic indices
-iron studies: iron 39, ferritin 108, TIBC 214, %sat 18
-B12 703, folate >20
-continue to trend hemoglobin
-anemia may be secondary to poor oral intake/malnutrition
All other medical problems managed as per hospitalist.
-
-
Thank you for consultation and allowing me to participate in the patient's care. Please call the customer operations associate GI physician during the after hours with any questions or concerns.
--- NOTE | 2023-08-14 10:42 | W.PN.HOSP.TC ---
Today's Communication/Plan
-
see A/P
Assessment / Plan
Assessment / Plan
HPI: 72-year-old female from [facility] with PMH hypertension, bowel resection with ostomy, CHF, HTN, HLD, GERD, rheumatoid arthritis with deformities of fingers, depression, nonambulatory/bedbound state, p/w acute on chronic dysphagia.
She had been on pur�ed diet before, but can no longer tolerate it- she feels food stuck in her chest.
She also reports coughing with swallowing medications.
She has oral thrush on her tongue.
She has had a 9 pound weight loss in the past 2 weeks. She reports she had C. difficile and has been on oral vancomycin starting 08/06 through to 08/17/2023.
A/P:
# Acute on chronic dysphagia, associated with weight loss
SPL eval
GI CS
Esophagram in a.m.
IVF while NPO
IV PPI
Check CXR to r/o extrinsic compression
# Oral thrush
Nystatin swish and swallow
# C. difficile according to patient
on oral vancomycin 125 mg Q6 08/06 - 08/17/2023
# Normocytic Anemia
Iron panel acceptable, B12/folate WNL
# Hypertension benign
Hold TRAINMAN amlodipine 5 mg daily due to borderline BP
Continue metoprolol tartrate 50 mg twice daily with hold parameters
# Bedbound status due to extremities deformities from RA
# HLD
No reported meds
# CHF chronic unknown type
I/O, daily weight
Hold torsemide 5 mg daily
# GERD
IV PPI
# RA with finger deformities
Hold methotrexate takes on Mondays
Continue hydroxychloroquine 400 mg twice daily
# Chronic lower back pain/spasms
May apply topical diclofenac sodium
Hold methocarbamol 500 every 12 hours
# Depression
Mood stable
Continue duloxetine
# bowel resection with Ostomy
# Insomnia
Hold melatonin
DVT prophylaxis: Subcu Lovenox
Full code, patient states emergency contact is her one of her 3 daughters Justa
Anticipated Discharge: > 48 hours
Subjective/Interval History
-
Date of Service: August 14, 2023
Objective Data
-
Labs:
Laboratory Results
08/14/23
07:53
WBC 2.8 L
Hgb 9.6 L
Hct 31.1 L
Plt Count 170 D
Sodium 135
Potassium 3.7
Chloride 109 H
Carbon Dioxide 19 L
BUN 13
Creatinine 0.4 L
Glucose 81
Calcium 9.4
Vital Signs:
Vital Signs
Temp Pulse Resp BP Pulse Ox
36.7 C 79 16 107/49 98
08/14/23 07:00 08/14/23 08:15 08/14/23 07:00 08/14/23 08:15 08/14/23 07:00
I&O
08/13/23 08/14/23 08/15/23
06:59 06:59 06:59
Output Total 100 / 100
Balance -100 / -100
Review of Systems
-
All other systems: Reviewed and negative
Physical Exam
-
General: Well Developed, Well Nourished, No Apparent Distress, Comfortable, Conversant and Appears Chronically Ill
HEENT: Normocephalic, Atraumatic, Nose Appears Normal and Ears Appear Normal
Respiratory: Clear to Auscultation and Non Labored Respirations; Negative Accessory Resp Muscle Use
Cardiac: Regular Rhythm and S1/S2
GI: Soft, Nontender, Nondistended and Normal Bowel Sounds
Musculoskeletal: Other (fingers and extremities deformities from chronic RA )
Skin: Warm and Dry
Neuro: Awake, Alert and Other (bedbound state)
Psych: Calm and Intact Judgement/Insight
Data Reviewed
-
Labs: Labs Reviewed by me
--- NOTE | 2023-08-14 14:02 | WOUNDNOTE ---
RIGHT ABDOMINAL PROXIMAL WOUND
--- NOTE | 2023-08-14 14:04 | WOUNDNOTE ---
RIGHT ABDOMINAL DISTAL WOUND
[2023-08-14] MEDS: SANTYL OINTMENT 1 APPLIC TOPICAL (14:54)
[2023-08-14 15:00] VITALS: BP 145/71
--- NOTE | 2023-08-14 15:30 | WOUNDNOTE ---
WO RN note: Patient admitted with dysphagia,
See H&P for complete history.
PMH: CHF, HTN, hyperlipidemia, colostomy, urinary incontinence, arthritis, depression
Wound Location and type/assessment: Patient admitted with: Right sided abdominal wounds. Patient reports these wounds occurred approximally in March 2023 due to leaking ostomy appliance. She said she sees a housing development specialist at [facility] that manages
wounds. The proximal wound is more superficial and is noted to have a full thickness necrotic area in the center of the wound which is draining greenish/blue drainage. The largest area of the distal wound has thick, adherent yellow slough and an
adjacent area of black eschar. Mild odor is noted and these wounds also have green/blue and yellow drainage. Patients ostomy is retracted. It did not appear to be leaking at the time the appliance was changed, but patient said it usually leaks after
4 days. Due to retracted ostomy, convex Jose Manuel barrier #[id number] and pouch # [id number] were Eakins seal were used. Heels intact and barrier and adhesive foam applied. Patient declines to be turned at this time due to nausea.
Appetite: NPO, reports recent weight loss due to nausea and dysphagia
Pressure redistribution devices in place: Static air overlay to be added to bed, heels off-loaded with pillows under calves.
Plan: Both wounds should be cleaned with 1/4 strength Dakins and Santyl applied to distal wounds. TT hospitalist with recommendations. Will defer to hospitalist for need of surgical consult to distal wounds. RN Miriam to assess sacrum and apply static
air overlay when nausea resolves. Care plan, discharge updated. Will follow as needed.
Recommend follow up at wound care center upon discharge.
--- NOTE | 2023-08-14 16:21 | CM ---
Addendum entered by Carmina Hanna 08/14/23 16:24:
[facility]
Report# [phone]- 2nd floor
Corrected
Original Note:
Patient seen bedside.
IA completed.
Patient LTC at [facility].
Mostly bedbound, does not ambulate.
Occasionally gets out of bed to .
patient alert and oriented.
Mane: back to [facility]
[2023-08-14] MEDS: DAKIN'S SOLUTION 0.125% 1/4 STRENGTH TOPICAL (16:57)
[2023-08-14] MEDS: LOVENOX 40 MG SC (17:07)
[2023-08-14] MEDS: ZOFRAN 4 MG IV (17:08)
[2023-08-14] MEDS: DAKIN'S SOLUTION 0.125% 1/4 STRENGTH 1 ML TOPICAL (19:44)
[2023-08-14 23:35] VITALS: BP 124/54
[2023-08-15] MEDS: ZOFRAN 4 MG IV (03:41)
[2023-08-15 05:14] LABS: % Basophils 0.9 % (0-2); % Immature Granulocytes 1.3 % (0-0.5); % Lymphocytes 34.6 % (20.5-51.1); % Monocytes 19.7 % (1.7-9.3); % Neutrophils 43.5 % (42.2-75.2); Absolute Lymphocytes 0.8 10^3/uL (1.2-3.4); Absolute Monocytes 0.5 10^3/uL (0.1-0.6); Hematocrit 30.3 % (37.0-47.0); Hemoglobin 9.6 g/dL (12.0-16.0); Mean Corp Hgb Conc. 31.7 g/dL (33.0-37.0); Mean Corpuscular Hgb 24.6 pg (27.0-31.0); Mean Corpuscular Volume 77.7 fL (81.0-99.0); Mean Platelet Volume 9.8 fL (7.4-10.4); Nucleated Red Blood Cells % 0 %; Platelet Count 161 10^3/uL (130-400); Red Cell Dist. Width 17.3 % (11.5-14.5)
[2023-08-15 05:22] LABS: White Blood Cell Count 2.3 10^3/uL (4.8-10.8)
[2023-08-15 05:27] LABS: Blood Urea Nitrogen 10 mg/dl (7-17); Calcium 9.5 mg/dl (8.4-10.2); Carbon Dioxide 18 mmol/L (22-30); Chloride 110 mmol/L (98-107); Estimated Creatinine Clearance 71 ml/min; Glucose 77 mg/dl (70-99); Potassium 3.5 mmol/L (3.5-5.1); Sodium 136 mmol/L (135-145); eGFR > 60.00
[2023-08-15 05:40] VITALS: BMI 26.1
[2023-08-15] MEDS: FIRVANQ 125 MG PO ×4 (05:56→23:39)
--- NOTE | 2023-08-15 06:27 | PTCARENOTE ---
This RN applied static overlay. Pt told this RN to deflate static overlay. Pt stated it wasnt comfortable and her skin is fine. Will continue with current plan.
[2023-08-15 07:39] VITALS: BP 112/53
[2023-08-15] MEDS: CYMBALTA DELAYED RELEASE 60 MG PO (09:26)
[2023-08-15] MEDS: CYMBALTA DELAYED RELEASE 30 MG PO (09:26)
[2023-08-15] MEDS: PLAQUENIL 400 MG PO ×2 (09:30→21:14)
[2023-08-15] MEDS: LOPRESSOR 50 MG PO ×2 (09:31→21:14)
[2023-08-15] MEDS: MYCOSTATIN ORAL SUSPENSION PO ×3 (09:32→16:18)
[2023-08-15] MEDS: PROTONIX IV 40 MG IV (09:32)
[2023-08-15] MEDS: NSS (PRESERVATIVE FREE) 10 ML IV (09:32)
--- NOTE | 2023-08-15 12:08 | W.PN.HOSP.TC ---
Today's Communication/Plan
-
EGD today
d/c planning
Assessment / Plan
Assessment / Plan
HPI: 72-year-old female from [facility] with PMH hypertension, bowel resection with ostomy, CHF, HTN, HLD, GERD, rheumatoid arthritis with deformities of fingers, depression, nonambulatory/bedbound state, p/w acute on chronic dysphagia.
She had been on pur�ed diet before, but can no longer tolerate it- she feels food stuck in her chest.
She also reports coughing with swallowing medications.
She has oral thrush on her tongue.
She has had a 9 pound weight loss in the past 2 weeks. She reports she had C. difficile and has been on oral vancomycin starting 08/06 through to 08/17/2023.
Acute on chronic dysphagia, associated with weight loss --seen by speech--esophagram shows tortuous esophagus--IVF while NPO--IV PPI--CXR without extrinsic compression
Oral thrush--Nystatin swish and swallow
C. difficile according to patient--on oral vancomycin 125 mg Q6 08/06 - 08/17/2023
Normocytic Anemia--Iron panel acceptable, B12/folate WNL
Essential Hypertension--Hold LOADING DOCK HELPER amlodipine 5 mg daily due to borderline BP--Continue metoprolol tartrate 50 mg twice daily with hold parameters
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
HLD--No reported meds
CHF chronic unknown type--I/O, daily weight--Hold torsemide 5 mg daily
GERD--IV PPI
RA with finger deformities--Hold methotrexate takes on Mondays--Continue hydroxychloroquine 400 mg twice daily
Chronic lower back pain/spasms--May apply topical diclofenac sodium--Hold methocarbamol 500 every 12 hours
Depression--Mood stable--Continue duloxetine
bowel resection with Ostomy
Insomnia--Hold melatonin
DVT prophylaxis: Subcu Lovenox
Full code, patient states emergency contact is her one of her 3 daughters Justa
Anticipated Discharge: > 48 hours
Subjective/Interval History
-
Date of Service: August 15, 2023
pt asking what time her procedure is
Objective Data
-
Labs:
Laboratory Results
08/15/23
04:45
WBC 2.3 L*
Hgb 9.6 L
Hct 30.3 L
Plt Count 161
Sodium 136
Potassium 3.5
Chloride 110 H
Carbon Dioxide 18 L
BUN 10
Creatinine 0.3 L
Glucose 77
Calcium 9.5
Vital Signs:
max temp for 24 hours
08/14/23
23:35
Temp 98.7 F
Vital Signs
Temp Pulse Resp BP Pulse Ox
97.7 F 76 20 112/53 99
08/15/23 07:39 08/15/23 07:39 08/15/23 07:39 08/15/23 07:39 08/15/23 07:39
I&O
08/14/23 08/15/23 08/16/23
06:59 06:59 06:59
Intake Total 0 / 0
Output Total 100 / 100 470 / 470
Balance -100 / -100 -470 / -470
Review of Systems
-
All other systems: Reviewed and negative
Physical Exam
-
General: Well Developed, Well Nourished, No Apparent Distress and Appears Chronically Ill
HEENT: Normocephalic and Atraumatic
Respiratory: Clear to Auscultation; Negative Wheezes or Rhonchi
Cardiac: Regular Rhythm and S1/S2; Negative Murmur
GI: Soft, Nontender, Nondistended and Normal Bowel Sounds
Musculoskeletal: No Clubbing, No Cyanosis and No Edema
Neuro: Awake and Alert
[2023-08-15] MEDS: DICLOFENAC 1% TOPICAL GEL 2 GRAM TOPICAL ×2 (13:27→21:09)
[2023-08-15] MEDS: SANTYL OINTMENT 1 APPLIC TOPICAL (13:27)
[2023-08-15] MEDS: DAKIN'S SOLUTION 0.125% 1/4 STRENGTH TOPICAL ×3 (13:28→21:08)
[2023-08-15 15:35] VITALS: BP 114/63
[2023-08-15 15:38] VITALS: BMI 26.1
--- NOTE | 2023-08-15 16:00 | PTCARENOTE ---
Ostomy appliance intact. ABD dressings changed per order. Sacral foam in place.
[2023-08-15] MEDS: MYCOSTATIN ORAL SUSPENSION 5 ML PO ×2 (18:25→21:14)
[2023-08-15] MEDS: LOVENOX 40 MG SC (18:25)
[2023-08-15 23:00] VITALS: BP 121/61
[2023-08-16 05:36] LABS: Hematocrit 31.1 % (37.0-47.0); Hemoglobin 9.7 g/dL (12.0-16.0); Mean Corp Hgb Conc. 31.2 g/dL (33.0-37.0); Mean Corpuscular Hgb 24.7 pg (27.0-31.0); Mean Corpuscular Volume 79.3 fL (81.0-99.0); Mean Platelet Volume 9.8 fL (7.4-10.4); Platelet Count 162 10^3/uL (130-400); Red Blood Cell Count 3.92 10^6/uL (4.20-5.40); Red Cell Dist. Width 17.3 % (11.5-14.5)
[2023-08-16] MEDS: FIRVANQ 125 MG PO ×3 (05:38→18:33)
[2023-08-16 05:39] LABS: White Blood Cell Count 2.3 10^3/uL (4.8-10.8)
[2023-08-16 06:00] VITALS: BMI 26.7
[2023-08-16 06:00] LABS: Blood Urea Nitrogen 10 mg/dl (7-17); Calcium 9.2 mg/dl (8.4-10.2); Carbon Dioxide 21 mmol/L (22-30); Chloride 108 mmol/L (98-107); Estimated Creatinine Clearance 71 ml/min; Glucose 78 mg/dl (70-99); Magnesium 1.8 mg/dl (1.6-2.3); Potassium 4.1 mmol/L (3.5-5.1); Sodium 134 mmol/L (135-145); eGFR > 60.00
[2023-08-16 07:00] VITALS: BP 120/56
[2023-08-16] MEDS: CYMBALTA DELAYED RELEASE 30 MG PO (09:21)
[2023-08-16] MEDS: PLAQUENIL 400 MG PO ×2 (09:21→19:43)
[2023-08-16] MEDS: CYMBALTA DELAYED RELEASE 60 MG PO (09:21)
[2023-08-16] MEDS: LOPRESSOR 50 MG PO ×2 (09:21→19:39)
[2023-08-16] MEDS: PROTONIX IV 40 MG IV (09:22)
[2023-08-16] MEDS: MYCOSTATIN ORAL SUSPENSION 5 ML PO ×2 (09:22→12:56)
[2023-08-16] MEDS: SANTYL OINTMENT 1 APPLIC TOPICAL (09:22)
[2023-08-16] MEDS: NSS (PRESERVATIVE FREE) 10 ML IV (09:22)
--- NOTE | 2023-08-16 09:58 | W.PN.GI.CBS2 ---
Today's Communication / Plan
-
-- Speech therapy
-- Soft diet
-- Discussed with hospitalist: Wound care, adrenal insufficiency testing, investigation into leukopenia
Assessment / Plan
-
72 year old female with RA, HTN, hyperlipidemia, prior bowel resection with ileostomy (2014) who presents to the hospital from [facility] for dysphagia, decreased oral intake and weight loss. Pt reports dysphagia for the past 7 weeks,
described as food and pills 'get stuck' with associated coughing, choking and often brings the food/pills back up. She tolerates liquids and soft foods without issue. No odynophagia. Symptoms came on gradually 7 weeks ago, but dysphagia has worsened
and now occurs daily. She has lost approximately 9 pounds in the past 2 weeks. She denies any chest pain or abdominal pain. No heartburn, reflux, belching, early satiety, fevers or chills. No prior endoscopy. Pt is a former smoker (quit 35 years
ago), denies alcohol or NSAID use. She also notes recent C diff infection, started oral vancomycin on 08/06, and currently has oral thrush. Denies any mouth pain currently.
08/14/23: esophagram: Moderately tortuous no evidence of stricture or obstruction. Multiple transient tertiary contractions
08/15/23: EGD, smooth and congested, tortuous but no evidence of stricture otherwise normal -collection of mucus in the proximal esophagus, consistent with dysmotility
-- No evidence of esophageal candidiasis but I did brush it for JOSE, there was a small amount of residual but likely contrast from the esophagram and not candidiasis
IMPRESSION / PLAN:
Dysphagia x past 7 weeks, worsening, with associated weight loss
-tolerates soft diet
-Speech eval pending - will re-order (texted them today_
-esophagram and EGD were unrevealing except for likely motility disorder that can be from her chronic medical conditions and her RA
-- discussed that she needs to either eat
--+ nausea - consider mirtazapine at night to help with appetite and depression
-- would highly consider adrenal insufficiency in her - years of high dose steroids that were recently removed -discussed with hospitalist
--- leukopenia - per hospitalist
-- abdominal wound - needs wound care
C difficile (reported per patient)
-continue oral Vancomycin
Microcytic Anemia
-Hgb 9.6 with microcytic indices
-iron studies: iron 39, ferritin 108, TIBC 214, %sat 18
-B12 703, folate >20
-continue to trend hemoglobin
-anemia may be secondary to poor oral intake/malnutrition
Overall, I discussed with her the options of trying to increase oral intake versus other means of enteral nutrition like tube feeding versus hospice
She has been bedbound for few weeks now and is not moving which is not a good sign
Subjective
Subjective
Date of Service: August 16, 2023
did enjoy the potato soup last night
has nausea
unaware of leukopenia
Has a wound on her abdomen
Objective
Data Reviewed
Laboratory Data:
Laboratory Results
08/16/23 05:14
08/16/23 05:14
Laboratory Results
Magnesium 1.8 mg/dl (1.6-2.3) 08/16/23 05:14
Total Bilirubin 0.4 mg/dl (0.2-1.3) 08/13/23 15:54
AST 29 U/L (14-36) 08/13/23 15:54
ALT 12 U/L (0-35) 08/13/23 15:54
Alkaline Phosphatase 264 U/L (38-126) H 08/13/23 15:54
Vital Signs and I&O:
Vital Signs
Temp Pulse Resp BP Pulse Ox
97.5 F 74 15 120/56 98
08/16/23 07:00 08/16/23 07:00 08/16/23 07:00 08/16/23 07:00 08/16/23 07:00
I&O
08/15/23 08/16/23 08/17/23
06:59 06:59 06:59
Intake Total 0 / 0 720 / 720
Output Total 470 / 470 200 / 200
Balance -470 / -470 520 / 520
Physical Exam
Physical Exam
HEENT: Anicteric
GI: Other (+ wound on her abdomen likely from leaking stoma appliance)
[2023-08-16] MEDS: DAKIN'S SOLUTION 0.125% 1/4 STRENGTH 1 ML TOPICAL (10:02)
[2023-08-16] MEDS: DICLOFENAC 1% TOPICAL GEL TOPICAL ×2 (10:02→19:34)
--- NOTE | 2023-08-16 10:56 | PTCARENOTE ---
Ostomy appliance beginning to gap. Appliance changed. ABD dressing changed per MD order. Sacral foam intact.
--- NOTE | 2023-08-16 13:06 | W.PN.HOSP.TC ---
Today's Communication/Plan
-
VSE Friday
cosyntropin STIM test in AM
Assessment / Plan
Assessment / Plan
pt is a 72 year old female
Acute on chronic dysphagia, associated with weight loss --seen by speech, for VSE Thursday 08/17--esophagram shows tortuous esophagus---IV PPI--CXR without extrinsic compression
Oral thrush--Nystatin swish and swallow
C. difficile according to patient--on oral vancomycin 125 mg Q6 08/06 - 08/17/2023
leukopenia-- unclear cause (can be associated with Hydroxychloroquine)--manual diff with immature granulocyte (1.3H)--consider heme eval--also had been on WORKFORCE ADVISOR steroid use--will do cosyntropin STIM test
Normocytic Anemia--Iron panel acceptable, B12/folate WNL
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
HLD--No reported meds
CHF chronic unknown type--I/O, daily weight--Hold torsemide 5 mg daily
GERD--IV PPI
RA with finger deformities--Hold methotrexate takes on Mondays--Continue hydroxychloroquine 400 mg twice daily--consider holding
Chronic lower back pain/spasms--May apply topical diclofenac sodium--Hold methocarbamol 500 every 12 hours
Depression--Mood stable--Continue duloxetine
bowel resection with Ostomy
Insomnia--Hold melatonin
DVT prophylaxis: Subcu Lovenox
Full code, patient states emergency contact is her one of her 3 daughters Justa
Anticipated Discharge: > 48 hours
Subjective/Interval History
-
Date of Service: August 16, 2023
pt waiting for VSE on Friday--choosing soft foods like cream soups and the like and tolerating OK
Objective Data
-
Labs:
Laboratory Results
08/16/23
05:14
WBC 2.3 L*
Hgb 9.7 L
Hct 31.1 L
Plt Count 162
Sodium 134 L
Potassium 4.1
Chloride 108 H
Carbon Dioxide 21 L
BUN 10
Creatinine 0.3 L
Glucose 78
Calcium 9.2
Vital Signs:
max temp for 24 hours
08/15/23
23:00
Temp 98.8 F
Vital Signs
Temp Pulse Resp BP Pulse Ox
97.5 F 74 15 120/56 98
08/16/23 07:00 08/16/23 07:00 08/16/23 07:00 08/16/23 07:00 08/16/23 07:00
I&O
08/15/23 08/16/23 08/17/23
06:59 06:59 06:59
Intake Total 0 / 0 720 / 720 270 / 270
Output Total 470 / 470 200 / 200
Balance -470 / -470 520 / 520 270 / 270
Review of Systems
-
All other systems: Reviewed and negative
Physical Exam
-
General: Well Developed, Well Nourished and No Apparent Distress
HEENT: Normocephalic and Atraumatic
Respiratory: Clear to Auscultation; Negative Wheezes or Rhonchi
Cardiac: Regular Rhythm and S1/S2; Negative Murmur
GI: Soft, Nontender, Nondistended and Normal Bowel Sounds
Musculoskeletal: No Clubbing, No Cyanosis and No Edema
Neuro: Awake
--- NOTE | 2023-08-16 13:37 | PTOTSP ---
SPEECH THERAPY SWALLOW EVALUATION:
Clinical signs of pharyngeal dysphagia in patient with known esophageal dysphagia, likely chronic of unknown etiology though possibly including causes related to chronic deconditioning. Pt reporting globus sensation in throat with solids; Endorsing
9 lb weight loss over 7 weeks. Limited assessment at bedside given refusal and vomiting. Recommend Videofluoroscopic Swallowing Study to further assess swallowing physiology. Patient's cognitive status grossly intact at this time and able to select
soft/moist textures. CXR currently clear. Given chronicity of dysphagia and absence of signs of aspiration at this time, patient appears safe to continue current diet of IDDSI Level 6 Soft and Bite size diet and thin liquids until VFSS Thursday 08/17
(due to weekend schedule). Recommend medications whole in puree, though pt declined, reporting prefers medications with liquid despite c/o pills getting 'stuck' at times. Recommend aspiration precautions includin% assistance with meals;
Upright positioning; Remain upright 30 minutes after eating/drinking; Small sips/bites; Slow rate of intake; Oral care 3-5x/day. Speech therapy to follow, assess diet tolerance and modify as appropriate, provide further recommendations following
VFSS, and provide continued education regarding aspiration risks/precautions.
RECOMMEND:
1) Videofluoroscopic Swallowing Study
2) IDDSI Level 6 Soft and Bite size diet and thin liquids
3) Meds whole with liquid as pt refused meds in puree
4) aspiration precautions includin% assistance with meals; Upright positioning; Remain upright 30 minutes after eating/drinking; Small sips/bites; Slow rate of intake; Oral care 3-5x/day
5) Speech therapy to follow
[2023-08-16 15:00] VITALS: BP 119/53
[2023-08-16] MEDS: MYCOSTATIN ORAL SUSPENSION PO ×3 (18:33→21:11)
[2023-08-16] MEDS: LOVENOX 40 MG SC (18:33)
[2023-08-16] MEDS: DAKIN'S SOLUTION 0.125% 1/4 STRENGTH TOPICAL (19:34)
[2023-08-16] MEDS: DESENEX/MITRAZOL/ZEASORB 1 APPLIC TOPICAL (21:11)
[2023-08-16 23:00] VITALS: BP 116/58
[2023-08-17] MEDS: FIRVANQ 125 MG PO ×4 (00:27→17:22)
[2023-08-17] MEDS: MELATONIN 5 MG PO (00:54)
[2023-08-17 06:00] VITALS: BMI 27.0
[2023-08-17 07:12] VITALS: BP 102/55
--- NOTE | 2023-08-17 08:28 | W.PN.GI.CBS2 ---
Today's Communication / Plan
-
-- nothing to add right now
Assessment / Plan
-
72 year old female with RA, HTN, hyperlipidemia, prior bowel resection with ileostomy (2014) who presents to the hospital from [facility] for dysphagia, decreased oral intake and weight loss. Pt reports dysphagia for the past 7 weeks,
described as food and pills 'get stuck' with associated coughing, choking and often brings the food/pills back up. She tolerates liquids and soft foods without issue. No odynophagia. Symptoms came on gradually 7 weeks ago, but dysphagia has worsened
and now occurs daily. She has lost approximately 9 pounds in the past 2 weeks. She denies any chest pain or abdominal pain. No heartburn, reflux, belching, early satiety, fevers or chills. No prior endoscopy. Pt is a former smoker (quit 35 years
ago), denies alcohol or NSAID use. She also notes recent C diff infection, started oral vancomycin on 08/06, and currently has oral thrush. Denies any mouth pain currently.
08/14/23: esophagram: Moderately tortuous no evidence of stricture or obstruction. Multiple transient tertiary contractions
08/15/23: EGD, smooth and congested, tortuous but no evidence of stricture otherwise normal -collection of mucus in the proximal esophagus, consistent with dysmotility
-- No evidence of esophageal candidiasis but I did brush it for JOSE, there was a small amount of residual but likely contrast from the esophagram and not candidiasis
IMPRESSION / PLAN:
Dysphagia x past 7 weeks, worsening, with associated weight loss
-tolerates soft diet
-Speech eval : 'RECOMMEND:
1) Videofluoroscopic Swallowing Study
2) IDDSI Level 6 Soft and Bite size diet and thin liquids
3) Meds whole with liquid as pt refused meds in puree
4) aspiration precautions includin% assistance with meals; Upright positioning; Remain upright 30 minutes after eating/drinking; Small sips/bites; Slow rate of intake; Oral care 3-5x/day
5) Speech therapy to follow'
-esophagram and EGD were unrevealing except for likely motility disorder that can be from her chronic medical conditions and her RA
--+ nausea - consider mirtazapine at night to help with appetite and depression and nausea
-- would highly consider adrenal insufficiency in her - years of high dose steroids that were recently removed -discussed with hospitalist - cosyntropin stim test this morning
--- leukopenia - per hospitalist
-- abdominal wound - needs wound care
C difficile (reported per patient)
-continue oral Vancomycin
Microcytic Anemia
-Hgb 9.6 with microcytic indices
-iron studies: iron 39, ferritin 108, TIBC 214, %sat 18
-B12 703, folate >20
-continue to trend hemoglobin
-anemia may be secondary to poor oral intake/malnutrition
Discussed moving and getting up and out of bed - PT/OT signed off - she wasn't always bedbound
Overall, I discussed with her the options of trying to increase oral intake versus other means of enteral nutrition like tube feeding versus hospice
She has been bedbound for few weeks now and is not moving which is not a good sign
Subjective
Subjective
Date of Service: August 17, 2023
Objective
Data Reviewed
Laboratory Data:
Laboratory Results
Magnesium 1.8 mg/dl (1.6-2.3) 08/16/23 05:14
Total Bilirubin 0.4 mg/dl (0.2-1.3) 08/13/23 15:54
AST 29 U/L (14-36) 08/13/23 15:54
ALT 12 U/L (0-35) 08/13/23 15:54
Alkaline Phosphatase 264 U/L (38-126) H 08/13/23 15:54
Vital Signs and I&O:
Vital Signs
Temp Pulse Resp BP Pulse Ox
98.1 F 72 16 102/55 95
08/17/23 07:12 08/17/23 07:12 08/17/23 07:12 08/17/23 07:12 08/17/23 07:12
I&O
08/16/23 08/17/23 08/18/23
06:59 06:59 06:59
Intake Total 720 / 720 1025 / 1025
Output Total 200 / 200 130 / 180 50 / 50
Balance 520 / 520 895 / 845 -50 / -50
[2023-08-17] MEDS: PLAQUENIL 400 MG PO ×2 (08:32→21:06)
[2023-08-17] MEDS: CYMBALTA DELAYED RELEASE 60 MG PO (08:32)
[2023-08-17] MEDS: PROTONIX IV 40 MG IV (08:32)
[2023-08-17] MEDS: MYCOSTATIN ORAL SUSPENSION 5 ML PO ×2 (08:32→21:06)
[2023-08-17] MEDS: CYMBALTA DELAYED RELEASE 30 MG PO (08:33)
[2023-08-17] MEDS: LOPRESSOR 50 MG PO ×2 (08:33→21:06)
[2023-08-17] MEDS: SANTYL OINTMENT 1 APPLIC TOPICAL (08:36)
[2023-08-17] MEDS: DICLOFENAC 1% TOPICAL GEL 2 GRAM TOPICAL ×2 (08:37→21:00)
[2023-08-17] MEDS: DESENEX/MITRAZOL/ZEASORB 1 APPLIC TOPICAL ×2 (08:37→20:59)
[2023-08-17] MEDS: DAKIN'S SOLUTION 0.125% 1/4 STRENGTH 473 ML TOPICAL ×2 (08:37→20:59)
[2023-08-17 08:47] LABS: Hematocrit 30.5 % (37.0-47.0); Hemoglobin 9.4 g/dL (12.0-16.0); Mean Corp Hgb Conc. 30.8 g/dL (33.0-37.0); Mean Corpuscular Hgb 24.6 pg (27.0-31.0); Mean Corpuscular Volume 79.8 fL (81.0-99.0); Mean Platelet Volume 9.8 fL (7.4-10.4); Platelet Count 153 10^3/uL (130-400); Red Blood Cell Count 3.82 10^6/uL (4.20-5.40)
[2023-08-17 08:48] LABS: White Blood Cell Count 2.3 10^3/uL (4.8-10.8)
[2023-08-17] MEDS: NSS (PRESERVATIVE FREE) 1 ML IV (09:29)
[2023-08-17] MEDS: CORTROSYN 0.25 MG IV (09:30)
[2023-08-17 09:45] LABS: Blood Urea Nitrogen 11 mg/dl (7-17); Calcium 9.5 mg/dl (8.4-10.2); Carbon Dioxide 22 mmol/L (22-30); Chloride 104 mmol/L (98-107); Estimated Creatinine Clearance 80 ml/min; Glucose 79 mg/dl (70-99); Magnesium 1.7 mg/dl (1.6-2.3); Potassium 4.4 mmol/L (3.5-5.1); Sodium 132 mmol/L (135-145); eGFR > 60.00
[2023-08-17 10:27] LABS: ACTH Stim Cortisol 0 Min 8.7 ug/dl
--- NOTE | 2023-08-17 11:42 | W.PN.HOSP.TC ---
Today's Communication/Plan
-
await cosyntropin stim test--30 and 60 minute times were not drawn....will cancel and re-order test in AM
for VSE in AM
Assessment / Plan
Assessment / Plan
pt is a 72 year old female
Acute on chronic dysphagia, associated with weight loss --seen by speech, for VSE Thursday 08/17--esophagram shows tortuous esophagus---IV PPI--CXR without extrinsic compression
Oral thrush--Nystatin swish and swallow
C. difficile according to patient--on oral vancomycin 125 mg Q6 08/06 - 08/17/2023
leukopenia-- unclear cause (can be associated with Hydroxychloroquine)--manual diff with immature granulocyte (1.3H)--consider heme eval--also had been on IRON PELLET TESTER steroid use--will do cosyntropin STIM test
Normocytic Anemia--Iron panel acceptable, B12/folate WNL
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
HLD--No reported meds
CHF chronic unknown type--I/O, daily weight--Hold torsemide 5 mg daily
GERD--IV PPI
RA with finger deformities--Hold methotrexate takes on Mondays--Continue hydroxychloroquine 400 mg twice daily--consider holding
Chronic lower back pain/spasms--May apply topical diclofenac sodium--Hold methocarbamol 500 every 12 hours
Depression--Mood stable--Continue duloxetine
bowel resection with Ostomy
Insomnia--Hold melatonin
DVT prophylaxis: Subcu Lovenox
Full code, patient states emergency contact is her one of her 3 daughters Justa
Anticipated Discharge: 24 - 48 hours
Subjective/Interval History
-
Date of Service: August 17, 2023
no c/o today
Objective Data
-
Labs:
Laboratory Results
08/17/23 08/17/23
08:26 09:25
WBC 2.3 L*
Hgb 9.4 L
Hct 30.5 L
Plt Count 153
Sodium Cancelled 132 L
Potassium Cancelled 4.4
Chloride Cancelled 104
Carbon Dioxide Cancelled 22
BUN Cancelled 11
Creatinine Cancelled 0.3 L
Glucose Cancelled 79
Calcium Cancelled 9.5
Vital Signs:
max temp for 24 hours
08/17/23
07:12
Temp 98.1 F
Vital Signs
Temp Pulse Resp BP Pulse Ox
98.1 F 72 16 102/55 95
08/17/23 07:12 08/17/23 07:12 08/17/23 07:12 08/17/23 07:12 08/17/23 07:12
I&O
08/16/23 08/17/23 08/18/23
06:59 06:59 06:59
Intake Total 720 / 720 1025 / 1025
Output Total 200 / 200 130 / 180 50 / 50
Balance 520 / 520 895 / 845 -50 / -50
Review of Systems
-
All other systems: Reviewed and negative
Physical Exam
-
General: Well Developed, Well Nourished and No Apparent Distress
HEENT: Normocephalic and Atraumatic
Respiratory: Clear to Auscultation; Negative Wheezes or Rhonchi
Cardiac: Regular Rhythm and S1/S2; Negative Murmur
GI: Soft, Nontender, Nondistended and Normal Bowel Sounds
Musculoskeletal: No Clubbing, No Cyanosis and No Edema
Neuro: Awake
[2023-08-17] MEDS: MYCOSTATIN ORAL SUSPENSION PO ×2 (12:11→17:23)
[2023-08-17] MEDS: NSS (PRESERVATIVE FREE) IV (12:30)
[2023-08-17 15:00] VITALS: BP 118/54
[2023-08-17] MEDS: LOVENOX 40 MG SC (17:21)
[2023-08-17 22:55] VITALS: BP 101/52
[2023-08-18 05:37] VITALS: BMI 26.7
[2023-08-18 07:00] VITALS: BP 106/81
[2023-08-18 09:05] LABS: ACTH Stim Cortisol 0 Min 10.4 ug/dl
--- NOTE | 2023-08-18 09:16 | W.PN.GI.CBS2 ---
Addendum entered and electronically signed by Coleen Li DO 08/18/23 16:40:
Patient seen and examined independently REFERRAL COORDINATOR. Agree with her note with my additions below
No significant changes overnight. Patient was seen by speech therapy who recommended the following:
'Recommend:
1. IDDSI Level 5 Minced and Moist, IDDSI Level 0 Thin Liquids
2. Medications - medications 1 at a time w/ sip of water
3. Strategies: upright to 90 degrees, small single sips via cup and tuck chin, slow rate, intermittent cough/swallow, remain upright for at least 30 minutes as a reflux precaution
4. Oral care 3x daily to reduce risk for complications from aspiration
5. Dysphagia therapy for patient education/instruction in compensations.'
-- I recommend once daily oral PPI. Can change from IV to oral
-- for the nausea - could consider nightly mirtazapine
-- heme to see for leukopenia
NO significant advice to add at this time. We will sign off and please call with any questions.
Original Note:
Today's Communication / Plan
-
Await VSE
Assessment / Plan
-
72 year old female with RA, HTN, hyperlipidemia, prior bowel resection with ileostomy (2014) who presents to the hospital from [facility] for dysphagia, decreased oral intake and weight loss. Pt reports dysphagia for the past 7 weeks,
described as food and pills 'get stuck' with associated coughing, choking and often brings the food/pills back up. She tolerates liquids and soft foods without issue. No odynophagia. Symptoms came on gradually 7 weeks ago, but dysphagia has worsened
and now occurs daily. She has lost approximately 9 pounds in the past 2 weeks. She denies any chest pain or abdominal pain. No heartburn, reflux, belching, early satiety, fevers or chills. No prior endoscopy. Pt is a former smoker (quit 35 years
ago), denies alcohol or NSAID use. She also notes recent C diff infection, started oral vancomycin on 08/06, and currently has oral thrush. Denies any mouth pain currently.
08/14/23: esophagram: Moderately tortuous no evidence of stricture or obstruction. Multiple transient tertiary contractions
08/15/23: EGD, smooth and congested, tortuous but no evidence of stricture otherwise normal -collection of mucus in the proximal esophagus, consistent with dysmotility
-- No evidence of esophageal candidiasis but I did brush it for JOSE, there was a small amount of residual but likely contrast from the esophagram and not candidiasis
IMPRESSION / PLAN:
Dysphagia x past 7 weeks, worsening, with associated weight loss
-tolerates soft diet
-Speech eval : 'RECOMMEND:
1) Videofluoroscopic Swallowing Study
2) IDDSI Level 6 Soft and Bite size diet and thin liquids
3) Meds whole with liquid as pt refused meds in puree
4) aspiration precautions includin% assistance with meals; Upright positioning; Remain upright 30 minutes after eating/drinking; Small sips/bites; Slow rate of intake; Oral care 3-5x/day
5) Speech therapy to follow'
-esophagram and EGD were unrevealing except for likely motility disorder that can be from her chronic medical conditions and her RA
--+ nausea - consider mirtazapine at night to help with appetite and depression and nausea
-- would highly consider adrenal insufficiency in her - years of high dose steroids that were recently removed -discussed with hospitalist - cosyntropin stim test this morning being performed.
--- leukopenia - per hospitalist
-- abdominal wound - needs wound care, they are following here. Follow up with wound care after DC.
C difficile (reported per patient)
-continue oral Vancomycin
Microcytic Anemia
-Hgb 9.6 with microcytic indices
-iron studies: iron 39, ferritin 108, TIBC 214, %sat 18
-B12 703, folate >20
-continue to trend hemoglobin
-anemia may be secondary to poor oral intake/malnutrition
Discussed moving and getting up and out of bed - PT/OT signed off - she wasn't always bedbound
Dr. Li discussed with her the options of trying to increase oral intake versus other means of enteral nutrition like tube feeding versus hospice
She has been bedbound for few weeks now and is not moving which is not a good sign
Subjective
Subjective
Date of Service: August 18, 2023
Patient awaiting VSE today. Am cortisol pending as well. No other labs drawn today. Patient drank liquids from her breakfast tray this am. Did not appear that much of her eggs were consumed.
Objective
Data Reviewed
Laboratory Data:
Laboratory Results
08/17/23 08:26
08/17/23 09:25
Laboratory Results
Magnesium 1.7 mg/dl (1.6-2.3) 08/17/23 09:25
Total Bilirubin 0.4 mg/dl (0.2-1.3) 08/13/23 15:54
AST 29 U/L (14-36) 08/13/23 15:54
ALT 12 U/L (0-35) 08/13/23 15:54
Alkaline Phosphatase 264 U/L (38-126) H 08/13/23 15:54
Vital Signs and I&O:
Vital Signs
Temp Pulse Resp BP Pulse Ox
98.8 F 71 16 106/81 98
08/18/23 07:00 08/18/23 07:00 08/18/23 07:00 08/18/23 07:00 08/18/23 07:00
I&O
08/17/23 08/18/23 08/19/23
06:59 06:59 06:59
Intake Total 1025 / 1025
Output Total 130 / 180 50 / 50
Balance 895 / 845 -50 / -50
Physical Exam
Physical Exam
HEENT: Anicteric
Cardiology: Normal Sinus Rhythm
Pulmonary: Clear (anterior)
GI: Soft, Non Distended, Non Tender, Normal Bowel Sounds and Other (right sided ostomy, bandage)
Extremities: No Edema and Other (left LE with area of white scar like area with surrounding ecchymosis (patient states chronic for years))
Neuro: Non Focal
[2023-08-18] MEDS: CYMBALTA DELAYED RELEASE 30 MG PO (09:24)
[2023-08-18] MEDS: MYCOSTATIN ORAL SUSPENSION 5 ML PO ×4 (09:24→20:36)
[2023-08-18] MEDS: CYMBALTA DELAYED RELEASE 60 MG PO (09:25)
[2023-08-18] MEDS: SANTYL OINTMENT 1 APPLIC TOPICAL (09:25)
[2023-08-18] MEDS: PLAQUENIL 400 MG PO ×2 (09:25→20:36)
[2023-08-18] MEDS: LOPRESSOR 50 MG PO (09:25)
[2023-08-18] MEDS: DICLOFENAC 1% TOPICAL GEL 1 GRAM TOPICAL (09:26)
[2023-08-18] MEDS: NSS (PRESERVATIVE FREE) 10 ML IV (09:27)
[2023-08-18] MEDS: DESENEX/MITRAZOL/ZEASORB 1 APPLIC TOPICAL ×2 (09:28→20:31)
[2023-08-18] MEDS: PROTONIX IV 40 MG IV (09:28)
[2023-08-18] MEDS: DAKIN'S SOLUTION 0.125% 1/4 STRENGTH 473 ML TOPICAL ×2 (09:29→20:31)
[2023-08-18] MEDS: CORTROSYN 0.25 MG IV (09:34)
[2023-08-18] MEDS: NSS (PRESERVATIVE FREE) 1 ML IV (09:34)
[2023-08-18 11:07] LABS: ACTH Stim Cortisol 30 Min 18.7 ug/dl
[2023-08-18 11:33] LABS: ACTH Stim Cortisol 60 Min 21.4 ug/dl
--- NOTE | 2023-08-18 13:06 | W.PN.HOSP.TC ---
Today's Communication/Plan
-
see A/P
Assessment / Plan
Assessment / Plan
pt is a 72 year old female
Acute on chronic dysphagia, associated with weight loss --seen by speech, VSE 08/17 recc mince/moist (adjusted)--esophagram shows tortuous esophagus---IV PPI--CXR without extrinsic compression
Oral thrush--Nystatin swish and swallow
C. difficile according to patient--on oral vancomycin 125 mg Q6 08/06 - 08/17/2023
leukopenia-- unclear cause (could be associated with Hydroxychloroquine)--manual diff with immature granulocyte (1.3H)--consider heme eval--also had been on HANGING FLAGS DECORATOR steroid use--cosyntropin STIM test acceptable
Heme consulted
Normocytic Anemia--Iron panel acceptable, B12/folate WNL
Essential Hypertension--Hold PERSONNEL SCHEDULER amlodipine 5 mg daily due to borderline BP--Continue metoprolol tartrate decreased from 50 to 25 mg twice daily with hold parameters
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
HLD--No reported meds
CHF chronic unknown type--I/O, daily weight--Hold torsemide 5 mg daily
GERD--IV PPI
RA with finger deformities--Hold methotrexate takes on Mondays--Continue hydroxychloroquine 400 mg twice daily--consider holding
Chronic lower back pain/spasms--May apply topical diclofenac sodium--Hold methocarbamol 500 every 12 hours
Depression--Mood stable--Continue duloxetine
bowel resection with Ostomy
Insomnia--Hold melatonin
DVT prophylaxis: Subcu Lovenox
Full code, patient states emergency contact is her one of her 3 daughters Justa
Anticipated Discharge: 24 - 48 hours
Subjective/Interval History
-
Date of Service: August 18, 2023
Objective Data
-
Vital Signs:
Vital Signs
Temp Pulse Resp BP Pulse Ox
37.1 C 71 16 106/81 98
08/18/23 07:00 08/18/23 07:00 08/18/23 07:00 08/18/23 07:00 08/18/23 07:00
I&O
08/17/23 08/18/23 08/19/23
06:59 06:59 06:59
Intake Total 1025 / 1025
Output Total 130 / 180 50 / 50
Balance 895 / 845 -50 / -50
Review of Systems
-
All other systems: Reviewed and negative
Physical Exam
-
General: Well Developed, Well Nourished, No Apparent Distress, Comfortable and Appears Chronically Ill
HEENT: Normocephalic and Atraumatic
Respiratory: Clear to Auscultation and Non Labored Respirations; Negative Accessory Resp Muscle Use
Cardiac: Regular Rhythm and S1/S2; Negative Murmur
GI: Soft, Nontender, Nondistended and Normal Bowel Sounds
Musculoskeletal: No Clubbing, No Cyanosis and No Edema
Neuro: Awake
Psych: Calm
Data Reviewed
-
Labs: Labs Reviewed by me
--- NOTE | 2023-08-18 14:17 | PTOTSP ---
Video Swallow Examination
Summary: Patient presents with mild-moderate oral, moderate pharyngeal dysphagia. There were small volumes of transient aspiration without a cough with thin liquids and trace but deep penetration after the swallow with puree. Esophageal sweep
with moderate retention in distal esophagus. Please see patient care note for full details of penetration/aspiration and swallowing physiology.
Patient is at an elevated risk for top-down and bottom-up aspiration. She is also at an elevated risk for complications from aspiration given her bedbound status and RA/immunosuppression medications. However, she has not had any known respiratory
complications from aspiration. Chest x-ray this admission without pneumonia. Education completed about risks/complications of aspiration. Patient in agreement to continue an oral diet at this time, understanding risks. Given difficulty with
mastication, solid downgrade was recommended which patient consented to.
Recommend:
1. IDDSI Level 5 Minced and Moist, IDDSI Level 0 Thin Liquids
2. Medications - medications 1 at a time w/ sip of water
3. Strategies: upright to 90 degrees, small single sips via cup and tuck chin, slow rate, intermittent cough/swallow, remain upright for at least 30 minutes as a reflux precaution
4. Oral care 3x daily to reduce risk for complications from aspiration
5. Dysphagia therapy for patient education/instruction in compensations.
[2023-08-18 15:00] VITALS: BP 116/59
--- NOTE | 2023-08-18 15:23 | CM ---
Patient seen bedside.
patient s/p VSE today.
Plan: back to [facility] when stable.
Spoke with Cristina from [facility], if patient would like to be transferred to another facility, they will have their social worker school assist the patient when she returns. Patient had been at [facility] since March. Per Cristina patient was from
[facility].
[facility]
Report# [phone] x [phone]- 2nd floor
[2023-08-18] MEDS: LOVENOX 40 MG SC (17:44)
[2023-08-18] MEDS: DICLOFENAC 1% TOPICAL GEL 2 GRAM TOPICAL (20:32)
[2023-08-18] MEDS: LOPRESSOR 25 MG PO (20:36)
--- NOTE | 2023-08-18 21:19 | CON.ONC ---
Impression
Impression
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
- Vanco has a well-established association with leukopenia, usually occurs after at least 12 days of treatment. Anticipate that it will eventually resolve now that she has completed Vanco.
2) C. Diff
- reports her diarrhea is chronic
3) RA, on Plaquenil and weekly MTX
4) Anemia, chronic
Plan
Plan
Daily CBC c diff
Abx if T>100.4 with ANC 1000
Does not currently appear infected.
Thank you for consult, will follow along with you.
Patient History
History of Present Illness
72-year-old female from [facility] admitted with acute on chronic dysphagia. She has had a 9 pound weight loss in the past 2 weeks. She reports she had C. difficile and has been on oral vancomycin starting 08/06 - 08/17/2023. She is
past medical history of hypertension, bowel resection with ostomy, CHF, HTN, HLD, GERD, rheumatoid arthritis with deformities of all fingers at PIP joints, only able to lift arms to clavicle area bilaterally, depression, nonambulatory, chronic
external rotation right hip. WBC was normal on admission but has now dropped to 2.3 with ANC 1000. Denies fevers, chills. Does not appear to be on new medications other than the Vanco which has now been d/c'd. Her main concern is regarding an
area of skin breakdown on R lower lateral abdominal wall. She states that a specific topical therapy was being used [facility] the [facility] but is not being used here in the hospital.
Past-Medical/Surgical History
Past Medical History
Chronic dysphagia
C. difficile on oral Vanco 08/06 - 08/17/2023
hypertension
HLD
CHF
GERD
RA on methotrexate with deformities of all fingers at PIP joints, only able to lift arms to clavicle area bilaterally,
Depression
bowel resection with ostomy
Past Surgical History
Knee surgery
Bilateral hip replacements with chronic right foot external rotation
Shoulder surgery
Bowel resection with colostomy
Back surgery
Cholecystectomy
Social History
Tobacco: Non-smoker
Alcohol: None
Drug: None
Personal: Single
Living: Snf ([facility])
Employment: Retired
Family History
Family History: Not pertinent
Patient Medication
�Medication �Instructions �Recorded �Confirmed �Last Taken �Type
Tacrolimus 0.1% 1 applic topical DAILY abd wounds 07/16/23 08/13/23 Unknown History
acetaminophen 325 mg tablet 650 mg PO Q6H PRN mild 07/16/23 08/13/23 Unknown History
pain/temp>100.4
amlodipine 5 mg tablet 5 mg PO DAILY Blood Pressure 07/16/23 08/13/23 Unknown History
diclofenac sodium 1 % topical gel 2 - 4 g topical BID lower back 07/16/23 08/13/23 Unknown History
docusate sodium 100 mg capsule 100 mg PO DAILY PRN constipation 07/16/23 08/13/23 Unknown History
duloxetine 60 mg capsule,delayed 60 mg PO DAILY Mental 07/16/23 08/13/23 Unknown History
release Health/Anxiety
folic acid 1 mg tablet 1 mg PO DAILY Supplement 07/16/23 08/13/23 Unknown History
gentamicin 0.1 % topical cream 1 applic topical DAILY abd wounds 07/16/23 08/13/23 Unknown History
hydrocortisone 1 % topical cream 1 applic topical [id number] PRN 07/16/23 08/13/23 Unknown History
itching on bilateral LEs
hydroxychloroquine 200 mg tablet 400 mg PO BID Autoimmune Disorder 07/16/23 08/13/23 Unknown History
magnesium hydroxide 400 mg/5 mL 30 ml PO DAILY PRN if no BM x 3 07/16/23 08/13/23 Unknown History
oral suspension (Milk of Magnesia) days
methocarbamol 500 mg tablet 500 mg PO Q12H PRN muscle spasms 07/16/23 08/13/23 Unknown History
methotrexate sodium 2.5 mg tablet 7.5 mg PO MO Autoimmune Disorder 07/16/23 08/13/23 Unknown History
metoprolol tartrate 50 mg tablet 50 mg PO BID Blood Pressure 07/16/23 08/13/23 Unknown History
ondansetron HCl 8 mg tablet 8 mg PO Q8H PRN nausea/vomiting 07/16/23 08/13/23 Unknown History
phenazopyridine 100 mg tablet 100 mg PO DAILY 07/16/23 08/13/23 Unknown History
torsemide 5 mg tablet 5 mg PO DAILY Fluid 07/16/23 08/13/23 Unknown History
Retention/Swelling
duloxetine 30 mg capsule,delayed 30 mg PO DAILY Mental 07/28/23 08/13/23 Unknown History
release Health/Anxiety
melatonin 5 mg capsule 5 mg PO HS Sleep 07/28/23 08/13/23 Unknown History
Saccharomyces boulardii 250 mg 250 mg PO DAILY 08/13/23 08/13/23 Unknown History
capsule
colestipol 5 gram oral packet 2 g PO DAILY 08/13/23 08/13/23 Unknown History
vancomycin 125 mg capsule 125 mg PO QID CDIFF 08/13/23 08/13/23 Unknown History
Active Medications
Generic Name Dose Route Start Last Admin
Trade Name Freq PRN Reason Stop Dose Admin
Collagenase 0 applic 08/14/23 14:00 08/18/23 09:25
Collagenase Ointment 2.5 Gram Jar TOPICAL 09/11/23 13:59 1 applic
DAILY CONCETTA Administration
Collagenase 0 applic 08/14/23 14:40
Collagenase Ointment 2.5 Gram Jar TOPICAL 09/11/23 14:39
DAILYPRN PRN
WOUND CARE
Diclofenac Sodium 2 - 4 gram 08/13/23 20:00 08/18/23 20:32
Diclofenac 1% Topical Gel 100 Gram Tube TOPICAL 09/10/23 19:59 2 gram
BID CONCETTA Administration
Protocol
Duloxetine HCl 30 mg 08/14/23 08:00 08/18/23 09:24
Duloxetine Delayed Release 30 Mg Capsule PO 09/11/23 07:59 30 mg
DAILY CONCETTA Administration
Duloxetine HCl 60 mg 08/14/23 08:00 08/18/23 09:25
Duloxetine Delayed Release 60 Mg Capsule PO 09/11/23 07:59 60 mg
DAILY CONCETTA Administration
Enoxaparin Sodium 40 mg 08/13/23 18:45 08/18/23 17:44
Enoxaparin Sodium 40 Mg/0.4 Ml Syringe SC 09/10/23 18:44 40 mg
QPM CONCETTA Administration
Hydroxychloroquine Sulfate 400 mg 08/13/23 20:00 08/18/23 20:36
Hydroxychloroquine 200 Mg Tablet PO 09/10/23 19:59 400 mg
BID CONCETTA Administration
Metoprolol Tartrate 25 mg 08/18/23 20:00 08/18/23 20:36
Metoprolol 25 Mg Regular Release Tablet PO 09/15/23 19:59 25 mg
BID CONCETTA Administration
Miconazole Nitrate 0 applic 08/16/23 20:00 08/18/23 20:31
Miconazole Powder Bottle TOPICAL 09/13/23 19:59 1 applic
BID CONCETTA Administration
Nystatin 5 ml 08/13/23 22:00 08/18/23 20:36
Nystatin Oral Suspension 500,000 Units/5 Ml PO 09/10/23 21:59 5 ml
QID CONCETTA Administration
Ondansetron HCl 4 mg 08/14/23 16:08 08/15/23 03:41
Ondansetron 4 Mg/2 Ml Vial IV 09/11/23 16:07 4 mg
Q6HPRN PRN Administration
NAUSEA/VOMITING
Pantoprazole Sodium 40 mg 08/19/23 08:00
Pantoprazole 40 Mg Delayed Release Tablet PO 09/16/23 07:59
DAILY CONCETTA
Sodium Chloride 0 flush 08/16/23 14:00
Sodium Chloride 0.9% (Flush) Syringe IV 09/13/23 13:59
PER PROTOCOL CONCETTA
Sodium Hypochlorite 0 ml 08/14/23 14:00 08/18/23 20:31
Dakin's Solution 0.125% (1/4 Strength) 473 Ml Bottle TOPICAL 09/11/23 13:59 473 ml
BID CONCETTA Administration
Review of Systems
-
History Source: Patient and Records
Constitutional: Reports No Symptoms
EENT: Reports No Symptoms
Respiratory: Reports Cough; Denies Hemoptysis
Cardiac: Reports No Symptoms
GI: Reports Diarrhea ( - states chronic) and Other (Dysphasia); Denies Nausea or Vomiting
Breast: Reports No Symptoms
: Reports No Symptoms
Musculoskeletal: Reports No Symptoms
Skin: Reports Other (Area of skin breakdown RLQ abdominal wall)
Neuro: Reports No Symptoms
Endocrine: Reports No Symptoms
Hematologic/Lymphatic: Reports No Symptoms
Allergy / Immunology: Reports No Symptoms
Psych: Reports No Symptoms
Physical Exam
-
General: No Apparent Distress, Appears Chronically Ill and Other (Lying in bed)
HEENT: Moist Mucous Membranes; Negative Jaundice
Cardiology: Normal Sinus Rhythm, S1 and S2
Pulmonary: Clear; Negative Wheezes
GI: Soft and Normal Bowel Sounds
Musculoskeletal: No Clubbing, No Cyanosis, No Edema and Other (Joint deformity hands)
Extremities: No C/C/E
Neurology: Non Focal
Skin: Warm and Dry
Hematologic / Lymphatic: No Lymphadenopathy and No Petechiae
Psych: Calm and Intact Judgement/Insight
Labs
Lab Results
WBC 2.3 10^3/uL (4.8-10.8) L* 08/17/23 08:26
RBC 3.82 10^6/uL (4.20-5.40) L 08/17/23 08:26
Hgb 9.4 g/dL (12.0-16.0) L 08/17/23 08:26
Hct 30.5 % (37.0-47.0) L 08/17/23 08:26
MCV 79.8 fL (81.0-99.0) L 08/17/23 08:26
MCH 24.6 pg (27.0-31.0) L 08/17/23 08:26
MCHC 30.8 g/dL (33.0-37.0) L 08/17/23 08:26
RDW 17.0 % (11.5-14.5) H 08/17/23 08:26
Plt Count 153 10^3/uL (130-400) 08/17/23 08:
MPV 9.8 fL (7.4-10.4) 08/17/23 08:
Abs Immat Gran (auto) 0.0 10^3/uL (0-0.05) 08/15/23 04:45
Absolute Neuts (auto) 1.0 10^3/uL (1.4-6.5) L 08/15/23 04:45
Absolute Lymphs (auto) 0.8 10^3/uL (1.2-3.4) L 08/15/23 04:45
Absolute Monos (auto) 0.5 10^3/uL (0.1-0.6) 08/15/23 04:45
Absolute Eos (auto) 0.0 10^3/uL (0-0.7) 08/15/23 04:45
Absolute Basos (auto) 0.0 10^3/uL (0-0.2) 08/15/23 04:45
Immature Gran % 1.3 % (0-0.5) H 08/15/23 04:45
Neutrophils % 43.5 % (42.2-75.2) 08/15/23 04:45
Lymphocytes % 34.6 % (20.5-51.1) 08/15/23 04:45
Monocytes % 19.7 % (1.7-9.3) H 08/15/23 04:45
Eosinophils % 0.0 % (0-6) 08/15/23 04:45
Basophils % 0.9 % (0-2) 08/15/23 04:45
Creatinine 0.3 mg/dL (0.6-1.0) L 08/17/23 09:25
Vital Signs
Vital Signs
Temp Pulse Resp BP Pulse Ox
98.4 F 69 16 110/52 100
08/18/23 15:00 08/18/23 20:36 08/18/23 15:00 08/18/23 20:36 08/18/23 15:00
[2023-08-18 23:07] VITALS: BP 105/51
[2023-08-19 06:00] VITALS: BMI 26.6
[2023-08-19 06:29] LABS: % Basophils 0.6 % (0-2); % Immature Granulocytes 2.2 % (0-0.5); % Lymphocytes 42.6 % (20.5-51.1); % Monocytes 15.1 % (1.7-9.3); % Neutrophils 39.5 % (42.2-75.2); Absolute Immature Granulocytes 0.1 10^3/uL (0-0.05); Absolute Lymphocytes 1.3 10^3/uL (1.2-3.4); Absolute Monocytes 0.5 10^3/uL (0.1-0.6); Absolute Neutrophils 1.2 10^3/uL (1.4-6.5); Hematocrit 30.8 % (37.0-47.0); Hemoglobin 9.6 g/dL (12.0-16.0); Mean Corp Hgb Conc. 31.2 g/dL (33.0-37.0); Mean Corpuscular Hgb 24.3 pg (27.0-31.0); Nucleated Red Blood Cells % 0 %; Platelet Count 171 10^3/uL (130-400); Red Blood Cell Count 3.95 10^6/uL (4.20-5.40); Red Cell Dist. Width 16.5 % (11.5-14.5); White Blood Cell Count 3.1 10^3/uL (4.8-10.8)
[2023-08-19 06:55] LABS: Blood Urea Nitrogen 9 mg/dl (7-17); Calcium 9.3 mg/dl (8.4-10.2); Carbon Dioxide 20 mmol/L (22-30); Chloride 103 mmol/L (98-107); Estimated Creatinine Clearance 71 ml/min; Glucose 71 mg/dl (70-99); Magnesium 1.7 mg/dl (1.6-2.3); Potassium 4.4 mmol/L (3.5-5.1); Sodium 129 mmol/L (135-145); eGFR > 60.00
[2023-08-19 07:20] VITALS: BP 120/57
[2023-08-19] MEDS: DESENEX/MITRAZOL/ZEASORB 1 APPLIC TOPICAL ×2 (09:57→20:10)
[2023-08-19] MEDS: DICLOFENAC 1% TOPICAL GEL 2 GRAM TOPICAL ×2 (10:02→20:10)
[2023-08-19] MEDS: DAKIN'S SOLUTION 0.125% 1/4 STRENGTH 473 ML TOPICAL ×2 (10:02→20:09)
[2023-08-19] MEDS: CYMBALTA DELAYED RELEASE 30 MG PO (10:04)
[2023-08-19] MEDS: CYMBALTA DELAYED RELEASE 60 MG PO (10:04)
[2023-08-19] MEDS: LOPRESSOR 25 MG PO ×2 (10:04→20:13)
[2023-08-19] MEDS: MYCOSTATIN ORAL SUSPENSION 5 ML PO ×4 (10:04→20:14)
[2023-08-19] MEDS: PLAQUENIL 400 MG PO ×2 (10:05→20:14)
[2023-08-19] MEDS: PROTONIX 40 MG PO (10:06)
--- NOTE | 2023-08-19 13:06 | W.PN.ONC ---
Today's Communication / Plan
-
WBC improving
continue to monitor CBC w/ diff
no further heme w/u indicated
Impression
Impression
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 Improving
- Vanco has a well-established association with leukopenia, usually occurs after at least 12 days of treatment. Anticipate that it will eventually resolve now that she has completed Vanco.
2) C. Diff
- diarrhea is chronic
3) RA, on Plaquenil and weekly MTX
4) Anemia, chronic
Plan
Plan
Monitor daily CBC c diff
Subjective/Objective
Subjective/Objective
no new issues
Vital Signs:
Vital Signs
Temp Pulse Resp BP Pulse Ox
97.3 F 72 16 120/57 98
08/19/23 07:20 08/19/23 07:20 08/19/23 07:20 08/19/23 07:20 08/19/23 07:20
Lab Results:
Laboratory Data
WBC 3.1 10^3/uL (4.8-10.8) L 08/19/23 05:48
Hgb 9.6 g/dL (12.0-16.0) L 08/19/23 05:48
Plt Count 171 10^3/uL (130-400) 08/19/23 05:48
eGFR > 60.00 08/19/23 05:48
[2023-08-19] MEDS: SANTYL OINTMENT 1 APPLIC TOPICAL (14:05)
[2023-08-19] MEDS: LOVENOX 40 MG SC (17:51)
--- NOTE | 2023-08-19 17:57 | W.PN.HOSP.TC ---
Today's Communication/Plan
-
Discharge planning
Assessment / Plan
Assessment / Plan
Physical Exam
General: Well Developed, Well Nourished, No Apparent Distress, Comfortable and Appears Chronically Ill
HEENT: Normocephalic and Atraumatic
Respiratory: Clear to Auscultation and Non Labored Respirations; Negative Accessory Resp Muscle Use
Cardiac: Regular Rhythm and S1/S2; Negative Murmur
GI: Soft, Nondistended and Normal Bowel Sounds. Very mild tenderness on the left side.
Musculoskeletal: No Clubbing, No Cyanosis and No Edema
Neuro: Awake
Psych: Calm
Assessment/Plan
pt is a 72 year old female
Acute on chronic dysphagia, associated with weight loss --seen by speech, VSE 08/17 recc mince/moist (adjusted)--esophagram shows tortuous esophagus---IV PPI--CXR without extrinsic compression
Oral thrush--Nystatin swish and swallow
C. difficile according to patient--on oral vancomycin 125 mg Q6 08/06 - 08/17/2023
leukopenia-- unclear cause (could be associated with Hydroxychloroquine)--manual diff with immature granulocyte (1.3H)--heme consulted, recommendations appreciate--also had been on NURSING HOME steroid use--cosyntropin STIM test acceptable
Heme consulted
Normocytic Anemia--Iron panel acceptable, B12/folate WNL
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
HLD--No reported meds
CHF chronic unknown type--I/O, daily weight--Hold torsemide 5 mg daily
GERD--PO PPI
RA with finger deformities--Hold methotrexate takes on Mondays--Continue hydroxychloroquine 400 mg twice daily--consider holding
Chronic lower back pain/spasms--May apply topical diclofenac sodium--Hold methocarbamol 500 every 12 hours
Depression--Mood stable--Continue duloxetine
bowel resection with Ostomy
Insomnia--Hold melatonin
DVT prophylaxis: Subcu Lovenox
Full code, patient states emergency contact is her one of her 3 daughters Justa
Anticipated Discharge: 24 - 48 hours
Subjective/Interval History
-
Date of Service: August 19, 2023
Patient was seen and examined. She reported her abdominal pain is better.
Objective Data
-
Labs:
Laboratory Results
08/19/23
05:48
WBC 3.1 L
Hgb 9.6 L
Hct 30.8 L
Plt Count 171
Sodium 129 L
Potassium 4.4
Chloride 103
Carbon Dioxide 20 L
BUN 9
Creatinine 0.3 L
Glucose 71
Calcium 9.3
Vital Signs:
Vital Signs
Temp Pulse Resp BP Pulse Ox
97.3 F 72 16 120/57 98
08/19/23 07:20 08/19/23 07:20 08/19/23 07:20 08/19/23 07:20 08/19/23 09:00
I&O
08/18/23 08/19/23 08/20/23
06:59 06:59 06:59
Intake Total 200 / 200
Output Total 50 / 50
Balance -50 / -50 200 / 200
[2023-08-19] MEDS: ULTRAM 25 MG PO (20:16)
[2023-08-19 23:24] VITALS: BP 114/55
[2023-08-20 06:00] VITALS: BMI 26.7
[2023-08-20 07:30] VITALS: BP 116/63
[2023-08-20] MEDS: MYCOSTATIN ORAL SUSPENSION PO (08:00)
[2023-08-20] MEDS: DICLOFENAC 1% TOPICAL GEL TOPICAL (10:34)
[2023-08-20] MEDS: DAKIN'S SOLUTION 0.125% 1/4 STRENGTH 473 ML TOPICAL (10:40)
[2023-08-20] MEDS: DESENEX/MITRAZOL/ZEASORB 1 APPLIC TOPICAL (10:41)
[2023-08-20] MEDS: PROTONIX 40 MG PO (10:56)
[2023-08-20] MEDS: LOPRESSOR 25 MG PO (10:56)
[2023-08-20] MEDS: CYMBALTA DELAYED RELEASE 30 MG PO (10:56)
[2023-08-20] MEDS: MYCOSTATIN ORAL SUSPENSION 5 ML PO (10:56)
[2023-08-20] MEDS: CYMBALTA DELAYED RELEASE 60 MG PO (10:56)
[2023-08-20] MEDS: PLAQUENIL 400 MG PO (10:57)
--- NOTE | 2023-08-20 12:42 | CM ---
Case Management Consult completed. Met with patient at the bedside and spoke with patient's daughter, Marian, via phone to discuss discharge plan
Explained to patient and her daughter that @ [facility] will assist with relocation should patient return to [facility] when stable for discharge
Per patient and her daughter, Marian, patient's sister is trying to find another facility that will accept her; sister manages the finances and will submit financial applications if she finds a facility
Cristina from [facility] called CM she was updated
--- NOTE | 2023-08-20 13:52 | CM ---
Addendum entered by Erika Mcfadden 08/20/23 15:06:
IMM explained to patient; unable to sign form @ 1500
Addendum entered by Erika Mcfadden 08/20/23 14:21:
Ambulance warehouse picker is [phone] today
Addendum entered by Erika Mcfadden 08/20/23 14:08:
Daughter, Marian, notified via phone of discharge plan
Cristina SEARS, @ [facility] notified
Original Note:
Plan: return to [facility] today via ambulance
Report# [phone] x [phone]- 2nd floor
--- NOTE | 2023-08-20 14:56 | W.PN.HOSP.TC ---
Today's Communication/Plan
-
Discharge today
Assessment / Plan
Assessment / Plan
Physical Exam
General: Well Developed, Well Nourished, No Apparent Distress, Comfortable and Appears Chronically Ill
HEENT: Normocephalic and Atraumatic
Respiratory: Clear to Auscultation and Non Labored Respirations; Negative Accessory Resp Muscle Use
Cardiac: Regular Rhythm and S1/S2; Negative Murmur
GI: Soft, Nondistended and Normal Bowel Sounds. Nontender.
Musculoskeletal: No Clubbing, No Cyanosis and No Edema
Neuro: Awake
Psych: Calm
Assessment/Plan
pt is a 72 year old female
Acute on chronic dysphagia, associated with weight loss --seen by speech, VSE 08/17 recc mince/moist (adjusted)--esophagram shows tortuous esophagus---IV PPI--CXR without extrinsic compression
Speech recommendations:
1. IDDSI Level 5 Minced and Moist, IDDSI Level 0 Thin Liquids
2. Medications - medications 1 at a time w/ sip of water
3. Strategies: upright to 90 degrees, small single sips via cup and tuck chin, slow rate, intermittent cough/swallow, remain upright for at least 30 minutes as a reflux precaution
4. Oral care 3x daily to reduce risk for complications from aspiration
5. Dysphagia therapy for patient education/instruction in compensations.
Oral thrush--Nystatin swish and swallow--completed 7 days
C. difficile according to patient--on oral vancomycin 125 mg Q6 - 08/07/2023 to 08/17/2023
Leukopenia--with neutropenia--suspected Vancomycin-related, but also related to RA, MTX and Plaquenil--heme consulted, recommendations appreciate--also had been on BUSINESS UNIT CONTROLLER steroid use--cosyntropin STIM test acceptable; Heme consulted - they
anticipate that it will eventually resolve now that she has completed Vanco
Normocytic Anemia--Iron panel acceptable, B12/folate WNL
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
HLD--No reported meds
CHF chronic unknown type--I/O, daily weight--Hold torsemide 5 mg daily
GERD--PO PPI
Prolonged QTc on Electrocardiogram--QTc 520 ms on August 20, 2023
RA with finger deformities--Hold methotrexate takes on Mondays--hold hydroxychloroquine 400 mg twice daily in the setting of QTc prolongation -- needs rheumatology follow-up
Chronic lower back pain/spasms--May apply topical diclofenac sodium--Hold methocarbamol 500 every 12 hours
Depression--Mood stable--Continue duloxetine
bowel resection with Ostomy
Insomnia
DVT prophylaxis: Subcu Lovenox
Full code, patient states emergency contact is her one of her 3 daughters Justa
More than 30 minutes spent in discharge including
Final examination of the patient
Summarizing hospital stay
Instructions for continuing care to all relevant caregivers
Preparation of discharge records, prescriptions, and referral forms
Total time spent (in minutes): 40
Anticipated Discharge: Today
Subjective/Interval History
-
Date of Service: August 20, 2023
Patient was seen and examined. She reported her abdominal discomfort was better overall, and denied any new significant symptoms or complaints.
Objective Data
-
Vital Signs:
Vital Signs
Temp Pulse Resp BP Pulse Ox
97.4 F 78 18 116/63 98
08/20/23 07:30 08/20/23 07:30 08/20/23 07:30 08/20/23 07:30 08/20/23 07:30
I&O
08/19/23 08/20/23 08/21/23
06:59 06:59 06:59
Intake Total 200 / 200 590 / 590
Balance 200 / 200 590 / 590
--- NOTE | 2023-08-20 15:14 | WOUNDNOTE ---
[facility] RN NOTE: Patient visited to follow up on wound and ostomy care. Ostomy with increased output, as diet has been advance to moist/minced. Some drainage noted at 9 clock when pouch and barrier removed. Ostomy remains flush and peristomal skin is
intact. Desenex and skin prep applied as ordered around stoma. Appliance changed with Jose Manuel Convex barrier # [id number], [employer] Seal, High Output Pouch number # [id number]. Exuderm Satin was placed around periwound skin of distal abdominal wound to
protect from ostomy drainage. Distal wound now with soft/removable slough and blue/greenish drainage. The adjacent distal wounds stable with black eschar. Patient explained she could not tolerate Dakins and Santyl as it is starting to sting when
applied. The proximal full thickness wound is now pink. Both wounds were cleaned with Vashe and packed with Vashe moistened gauze and covered with dry dressing. Patient tolerated the Vashe well and denied pain or stinging with dressing change.
Patient declined use of static air overlay and said it was not comfortable. Patient informed of rationale for air surface, but she continued to decline use. Sacrum intact and covered with silicone border foam. Heels intact and off-loaded with
pillows under calves. Dr. Welsh confirmed order change of Vashe moistened gauze to abdominal wounds. Orders, careplan and discharge instructed updated. RN Skye updated. Plan is for discharge to [place] today.
[2023-08-20 15:34] VITALS: BP 111/49
--- NOTE | 2023-08-20 15:34 | W.DS.TRANS ---
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
-
Discharge Instructions:
Sleep Apnea Risk Low
Discharge Diagnosis/Procedures Prolonged QTc on Electrocardiogram, Acute on
chronic dysphagia, oral thrush�resolved, C.
difficile prior to admission, leukopenia,
essential hypertension, anemia of chronic
disease, bedbound status, hyperlipidemia,
congestive heart failure of unknown type chronic
without exacerbation, rheumatoid arthritis with
finger deformities, gastroesophageal reflux
disease, chronic low back spasms, chronic venous
wound ostomy, depression
Diet As tolerated,Restrict fluids to 48 oz,Other diet
Additional Diets IDDSI Level 5 Minced and Moist, IDDSI Level 0
Thin Liquids
Activity As tolerated
Driving Restrictions No driving
Bathing Restrictions None
Blood Work Needs CBC, CMP and Magnesium by August 22, 2023.
Other Services PT,OT
Specialty Instructions Weigh Daily
Instructions:
Stand-Alone Forms:
Changes to Home Medications: Yes
Discharge Medications:
DC Medications w/original date entered in [facility]
Tacrolimus 0.1% 1 applic topical DAILY abd wounds 07/16/23
acetaminophen 325 mg tablet 650 mg PO Q6H PRN mild pain/temp>100.4 07/16/23
amlodipine 5 mg tablet 5 mg PO DAILY Blood Pressure 07/16/23
diclofenac sodium 1 % topical gel 2 - 4 g topical BID lower back 07/16/23
docusate sodium 100 mg capsule 100 mg PO DAILY PRN constipation 07/16/23
duloxetine 60 mg capsule,delayed release 60 mg PO DAILY Mental Health/Anxiety 07/16/23
folic acid 1 mg tablet 1 mg PO DAILY Supplement 07/16/23
gentamicin 0.1 % topical cream 1 applic topical DAILY abd wounds 07/16/23
hydrocortisone 1 % topical cream 1 applic topical [id number] PRN itching on bilateral LEs 07/16/23
hydroxychloroquine 200 mg tablet 400 mg PO BID Autoimmune Disorder 07/16/23
magnesium hydroxide 400 mg/5 mL oral suspension (Milk of Magnesia) 30 ml PO DAILY PRN if no BM x 3 days 07/16/23
methocarbamol 500 mg tablet 500 mg PO Q12H PRN muscle spasms 07/16/23
methotrexate sodium 2.5 mg tablet 7.5 mg PO MO Autoimmune Disorder 07/16/23
torsemide 5 mg tablet 5 mg PO DAILY Fluid Retention/Swelling 07/16/23
duloxetine 30 mg capsule,delayed release 30 mg PO DAILY Mental Health/Anxiety 07/28/23
melatonin 5 mg capsule 5 mg PO HS Sleep 07/28/23
Saccharomyces boulardii 250 mg capsule 250 mg PO DAILY 08/13/23
colestipol 5 gram oral packet 2 g PO DAILY 08/13/23
metoprolol tartrate 25 mg tablet 25 mg PO BID #60 tabs 08/20/23
pantoprazole 40 mg tablet,delayed release 40 mg PO DAILY #30 tabs 08/20/23
Home Medication Changes
Metoprolol Tartrate Reduced to 25 mg PO BID.
Pantoprazole is a new medication.
Amlodipine, Hydroxychloroquine, Melatonin, Methocarbamol, Methotrexate and Torsemide are all on hold.
Ondansetron, Phenazopyridine, and PO Vancomycin discontinued (course of PO Vancomycin completed, and Ondansetron stopped due to QTc prolongation).
Pending Results: No
Total time spent discharging patient (in min): 40
[2023-08-20] MEDS: SANTYL OINTMENT TOPICAL (15:51)
--- NOTE | 2023-08-23 12:43 | W.DCSUMMARY ---
Discharge Summary
Discharge Data
Date of Admission: 08/13/23
Date of Discharge: 08/20/23
Total time spent discharging patient (in min): 40
-
Pending Results: No
Hospital Course
72-year-old female from [facility] with PMH hypertension, bowel resection with ostomy, CHF, HTN, HLD, GERD, rheumatoid arthritis with deformities of fingers, depression, nonambulatory/bedbound state, presented with acute on chronic
dysphagia. Patient was started on intravenous fluids and gastroenterology was consulted. Patient was started on Nystatin for thrush. Patient had an upper endoscopy where it was found that she had a small hiatal hernia and abnormal esophageal
motility; the impression was that patient's esophageal motility issue was related to her autoimmune disease and chronic deconditioning. Speech saw the patient as well. Patient had leukopenia for which hematology was consulted; hematology mentioned
that patient's leukopenia with neutropenia was suspected to be Vancomycin-related (patient taking Vancomycin for C. diff recently), but also related to RA, methotrexate and plaquenil. Cosyntropin stimulation test was ordered due to possible adrenal
insufficiency and the results were determined to be acceptable.
Discharge Plan
-
Patient Disposition: Shelter/SNF
Discharge Diagnosis/Procedures: Prolonged QTc on Electrocardiogram, Acute on chronic dysphagia, oral thrush�resolved, C. difficile prior to admission, leukopenia, essential hypertension, anemia of chronic disease, bedbound status, hyperlipidemia,
congestive heart failure of unknown type chronic without exacerbation, rheumatoid arthritis with finger deformities, gastroesophageal reflux disease, chronic low back spasms, chronic venous wound ostomy, depression
Condition: Good
Diet: As tolerated, Restrict fluids to 48 oz and Other diet
Additional Diets: IDDSI Level 5 Minced and Moist, IDDSI Level 0 Thin Liquids
Activity: As tolerated
Driving Restrictions: No driving
Bathing Restrictions: None
Blood Work: Needs CBC, CMP and Magnesium by August 22, 2023.
Other Services: PT and OT
Specialty Instructions: Weigh Daily- Call MD for wt gain/loss 3 lbs overnight/5 lbs in 1 week
Activity Restrictions/Additional Instructions:
Diet/Swallowing (as per speech therapist recommendations):
1. IDDSI Level 5 Minced and Moist, IDDSI Level 0 Thin Liquids
2. Medications - medications 1 at a time w/ sip of water
3. Strategies: upright to 90 degrees, small single sips via cup and tuck chin, slow rate, intermittent cough/swallow, remain upright for at least 30 minutes as a reflux precaution
4. Oral care 3x daily to reduce risk for complications from aspiration
5. Dysphagia therapy for patient education/instruction in compensations.

Wound Care Instructions Right abdominal distal and proximal wounds- Clean with Vashe and apply Vashe moistened gauze to wound. Cover with silicone border foam or other dry dressing. Change daily and PRN if loose or for drainage.
Ostomy- [place] Convex barrier # [id number], [place] Seal, High Output Pouch number # [id number]. Apply Exuderm Satin or other hydrocolloid around peristomal skin of distal abdominal wound to protect from ostomy drainage. Re-apply hydrocolloid Q 3 days or
PRN if loose.
Air mattress or static air overlay
Turning schedule
Frequent continence care
Keep Heels off-loaded with air cushion or pillows under calves
Encourage high protein foods
Follow up at wound care center call for an appointment.
Referrals:
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
Yolis Yan MD [Active] - in less than 1 week (Leukopenia follow-up)
Shiv Hall, [Family Provider] - in less than 1 week
Additional Discharge Medication Instructions: Metoprolol Tartrate Reduced to 25 mg PO BID.
Pantoprazole is a new medication.
Amlodipine, Hydroxychloroquine, Melatonin, Methocarbamol, Methotrexate and Torsemide are all on hold.
Ondansetron, Phenazopyridine, and PO Vancomycin discontinued (course of PO Vancomycin completed), and Ondansetron stopped due to QTc prolongation).
Prescriptions:
New
metoprolol tartrate 25 mg Tablet
25 mg PO BID Qty: 60 1RF
pantoprazole 40 mg Tablet,Delayed Release (Dr/Ec)
40 mg PO DAILY Qty: 30 1RF
Continued
acetaminophen 325 mg Tablet
650 mg PO Q6H MDD 3000 mg PRN (Reason: mild pain/temp>100.4)
magnesium hydroxide [Milk of Magnesia] 400 mg/5 mL Suspension
30 ml PO DAILY PRN (Reason: if no BM x 3 days)
hydrocortisone 1 % Cream
1 applic TOPICAL [id number] PRN (Reason: itching on bilateral LEs)
docusate sodium 100 mg Capsule
100 mg PO DAILY PRN (Reason: constipation)
gentamicin 0.1 % Cream
1 applic TOPICAL DAILY
folic acid 1 mg Tablet
1 mg PO DAILY
duloxetine 60 mg Capsule,Delayed Release(Dr/Ec)
60 mg PO DAILY
Rx Instructions:
07/28/2023, take with 30 mg for a total of 90 mg.
diclofenac sodium 1 % Gel
2 - 4 g TOPICAL BID
Tacrolimus 0.1% 0.1 % cream
1 applic topical DAILY
Patient Comments:
07/28/2023: apply to abdominal wounds; mix with gentamicin compound.
duloxetine 30 mg Capsule,Delayed Release(Dr/Ec)
30 mg PO DAILY
Rx Instructions:
07/28/2023, take with 60 mg for a total of 90 mg.
colestipol 5 gram Packet
2 g PO DAILY
Saccharomyces boulardii 250 mg Capsule
250 mg PO DAILY
Held
methocarbamol 500 mg Tablet
500 mg PO Q12H PRN (Reason: muscle spasms)
Hold Instructions: Resume on 09/03/23. Resume if and only if okay to be resumed, as per outpatient physicians.
amlodipine 5 mg Tablet
5 mg PO DAILY
Hold Instructions: Resume on 08/27/23. Resume if and only if okay to be resumed, as per outpatient physicians.
methotrexate sodium 2.5 mg Tablet
7.5 mg PO MO
Hold Instructions: Resume on 09/17/23. Resume if and only if okay to be resumed, as per outpatient physicians.
Rx Instructions:
07/28/2023, give 3 tablets by mouth two times a day every Friday for arthritis.
torsemide 5 mg Tablet
5 mg PO DAILY
Hold Instructions: Resume on 09/03/23. Resume if and only if okay to be resumed, as per outpatient physicians.
hydroxychloroquine 200 mg Tablet
400 mg PO BID
Hold Instructions: Resume on 08/27/23. Holding due to QTc prolongation. Patient needs follow-up regarding when to restart this.
melatonin 5 mg Capsule
5 mg PO HS
Hold Instructions: Resume on 09/03/23. Resume if and only if okay to be resumed, as per outpatient physicians.
Discontinued
ondansetron HCl [Zofran] 8 mg Tablet
8 mg PO Q8H PRN (Reason: nausea/vomiting)
phenazopyridine 100 mg Tablet
100 mg PO DAILY
metoprolol tartrate 50 mg Tablet
50 mg PO BID
Patient Comments:
07/28/2023, hold for SBP<100 or HR<60.
vancomycin 125 mg Capsule
125 mg PO QID
Discharge Orders:
Discharge Patient (As Directed); Ordered 08/20/23
Ordered By: Blaise Morrison
Discharge Date and Time
Discharge Date/Time: 08/20/23 18:21
Print Language: AMHARIC
== END 2023-08-20 18:21 | DRG 392 ==
LOC: 4 WEST ACU 18:31
PROVIDERS: Clinical Nurse Specialist Family Health; Internal Medicine; Physician Assistant; ADMITTING PHYSICIAN Internal Medicine; ATTENDING PHYSICIAN Hospitalist; CONSULT PHYSICIAN Internal Medicine Hematology & Oncology; EMERGENCY PHYSICIAN Emergency Medicine; FAMILY PHYSICIAN Internal Medicine; OTHER PHYSICIAN Internal Medicine
PROC: 0DD58ZX Extraction of Esophagus, Via Natural or Artificial Opening Endoscopic, Diagnostic (ICD-10-PCS; 2023-08-15)
DX: K22.4 Dyskinesia of esophagus (principal); B37.0 Candidal stomatitis; R63.4 Abnormal weight loss; I11.0 Hypertensive heart disease with heart failure; I50.9 Heart failure, unspecified; K21.9 Gastro-esophageal reflux disease without esophagitis; E78.00 Pure hypercholesterolemia, unspecified; M06.9 Rheumatoid arthritis, unspecified; F32.A Depression, unspecified; D50.9 Iron deficiency anemia, unspecified; G89.29 Other chronic pain; M54.50 Low back pain, unspecified; G47.00 Insomnia, unspecified; K44.9 Diaphragmatic hernia without obstruction or gangrene; D70.9 Neutropenia, unspecified; D72.819 Decreased white blood cell count, unspecified; T36.8X5A Adverse effect of other systemic antibiotics, initial encounter; D63.8 Anemia in other chronic diseases classified elsewhere; R94.31 Abnormal electrocardiogram [ECG] [EKG]; Z68.26 Body mass index [BMI] 26.0-26.9, adult; Z74.01 Bed confinement status; Z79.631 Long term (current) use of antimetabolite agent; Z79.899 Other long term (current) drug therapy; Z87.891 Personal history of nicotine dependence
CPT/HCPCS: 71046; 74221; 74230; 80048; 80053; 82533; 82607; 82728; 82746; 83540; 83550; 83735; 85025; 85027; 87220; 92526; 92610; 92611; 93005; 99284

== ENCOUNTER 2023-09-08 23:29 | Inpatient (IN) | payer MEDICARE, OTHER, SELFPAY ==
[2023-09-08 20:13] VITALS: BP 115/71; BMI 25.6
[2023-09-08 20:16] VITALS: BP 115/71
--- NOTE | 2023-09-08 20:26 | ED.GENMED ---
History of Present Illness
General
Chief Complaint: Failure to Thrive
Time Seen by Provider: 09/08/23 20:26
Travel History
Have you had any contact with someone who has COVID-19?: No
Do you have any symptoms of coronavirus? Fever > 100 degrees, chills, cough, shortness of breath, sore throat, loss of taste or smell, muscle aches, or headache?: No
History of Present Illness
History of Present Illness:
HPI: Patient presents by ambulance from [facility] related to failure to thrive and has not been eating or drinking. The patient was recently admitted here related to dysphagia (See below).
The patient was recently admitted here
EXAM:
GENERAL: Appears extremely generally weak and debilitated
HEENT: Extremely dry oral mucosa
CARDIOVASCULAR: Regular rate and rhythm
PULMONARY: No respiratory distress, breathing is nonlabored, equal and clear breath sounds
ABDOMEN: Soft but with some mild diffuse abdominal tenderness with no peritoneal signs, colostomy bag noted
NEUROLOGIC: The patient has evidence of dementia, not oriented to month or place, strength is equal in all extremities
EXTREMITIES: Moves all extremities equally, no tenderness, no edema
PYSCHIATRIC: Very limited historian, poor insight and judgment
TIME OF INITIAL ENCOUNTER:
NUMBER AND COMPLEXITY OF PROBLEMS ADDRESSED AT THE ENCOUNTER
� Chronic conditions affecting care: CHF, high blood pressure, hyperlipidemia, had colostomy related to 'bowel blockage and, depression
� Acute Exacerbation and/or Progression of Chronic Illness: This is an acute problem
� Differential Diagnosis includes: Failure to thrive, hypoglycemia, poor nutritional status
AMOUNT AND/OR COMPLEXITY OF DATA TO BE REVIEWED AND ANALYZED
� I performed an independent evaluation of and my interpretation is:
EKG:
CT:
X-rays:
Laboratory Studies: White count 9.4, hemoglobin 11.3, sodium slightly low at 128 which is near baseline, bicarb only 19, glucose 49, albumin 2.1 which continues to worsen since last last 1
Other:
� Review of other/old records: I reviewed the notes from last admission, the patient was admitted after she presented with acute on chronic dysphagia, she was started on IV fluid, was started on nystatin for thrush, and had an
upper endoscopy where small hiatal hernia and abnormal esophageal motility was noted.
� Clinical information was obtained by an independent historian: I reviewed EMS report
� Prescriptions/Medications Considered but not given:
� Further testing considered but not performed: Considered CT imaging however the patient just had a CT approximately 6 weeks ago and at that time suggested colitis with you; along with resection of the transverse colon with
right lower quadrant colostomy and midline lower abdominal wall hernia
RISK OF COMPLICATIONS AND/OR MORBIDITY OR MORTALITY OF PATIENT MANAGEMENT
� Social determinants of health affecting care: Resides at [facility]
� Discussion with other providers: Hospitalist for admission, Dr. Mock
� Escalation of care including admission/observation vs risk of discharge considered: The patient appears markedly dehydrated on physical examination�she was given 500 mL of saline. White blood cell count is normal, vital signs
are relatively unremarkable. However the patient has a bicarb that remains low and glucose is for the first time low now at 49. Albumin continues to worsen. After saline bolus, was given D10.
Past History
Past History
ED Past Medical History: HTN and Other (heart failure)
ED Past Surgical History: Bowel resection
Social History
Tobacco: Non-smoker
Alcohol: None
Drug: None
Living: snf
Phy Exam
Physical Exam
Physical Exam:
See HPI
Course
Orders/Labs/Results
Orders:
Orders
09/08/23 20:29
0.9% Sodium Chloride 500 ml [Nss] 500 ml IV BOLUS
09/08/23 20:42
Complete Blood Count/With Diff Urgent
09/08/23 21:45
Comprehensive Metabolic Panel Routine
09/08/23 23:00
Dextrose 10%/Water 500 ml [D10w] 500 ml IV 250 mls/hr
Abnormal Lab Results
09/08/23 09/08/23
20:42 21:45
Hgb 11.3 L g/dL
(12.0-16.0)
Hct 34.5 L %
(37.0-47.0)
MCV 75.2 L fL
(81.0-99.0)
MCH 24.6 L pg
(27.0-31.0)
MCHC 32.8 L g/dL
(33.0-37.0)
RDW 18.0 H %
(11.5-14.5)
Abs Immat Gran (auto) 0.1 H 10^3/uL
(0-0.05)
Absolute Neuts (auto) 7.5 H 10^3/uL
(1.4-6.5)
Immature Gran % 1.0 H %
(0-0.5)
Neutrophils % 79.5 H %
(42.2-75.2)
Lymphocytes % 12.6 L %
(20.5-51.1)
Sodium 128 L mmol/L
(135-145)
Carbon Dioxide 19 L mmol/L
(22-30)
Creatinine 0.4 L mg/dL
(0.6-1.0)
Glucose 49 L* mg/dl
(70-99)
Alkaline Phosphatase 155 H U/L
(38-126)
Total Protein 5.0 L g/dl
(6.3-8.2)
Albumin 2.1 L g/dl
(3.5-5.0)
09/08/23 20:42
09/08/23 21:45
Vital Signs
Initial and Last Documented VS:
Initial Vital Signs
Temp Pulse Resp BP Pulse Ox
97.5 F 95 28 115/71 96
09/08/23 20:13 09/08/23 20:13 09/08/23 20:13 09/08/23 20:13 09/08/23 20:13
Last Documented Vital Signs
Temp Pulse Resp BP Pulse Ox
97.5 F 86 13 130/91 96
09/08/23 20:13 09/08/23 22:00 09/08/23 22:00 09/08/23 22:00 09/08/23 20:13
*Critical Care Note
Total Time (30-74mins, 75-104mins- exclusive of procedures): Not Applicable
ED Attending Note
-
Portions of this chart may have been created with voice recognition software.� Occasional wrong word or��sound alike� substitutions may have occurred due to the inherent limitations of voice recognition software.
Discharge Plan
Departure
Patient Disposition: Admit
Date of Disposition: 09/08/23
Time of Disposition: 22:30
Presentation/result/management discussed w/ accepting MD/DO: Hospitalist
Discharge Problem:
Hypoglycemia
Prescriptions:
No Action
acetaminophen 325 mg Tablet
650 mg PO Q6HPRN MDD 3000 mg PRN (Reason: mild pain/temp>100.4)
methotrexate sodium 2.5 mg Tablet
7.5 mg PO .SEE BELOW
Hold Instructions: Resume on 09/17/23. Resume if and only if okay to be resumed, as per outpatient physicians.
Patient Comments:
09/08/2023, currently on hold per [place] paperwork.
Rx Instructions:
09/08/2023, give 3 tablets by mouth two times a day every Friday for arthritis.
hydrocortisone 1 % Cream
1 applic TOPICAL [id number] PRN (Reason: itching on bilateral LEs)
docusate sodium 100 mg Capsule
100 mg PO DAILY PRN (Reason: constipation)
gentamicin 0.1 % Cream
1 applic TOPICAL DAILY
folic acid 1 mg Tablet
1 mg PO DAILY
duloxetine 60 mg Capsule,Delayed Release(Dr/Ec)
60 mg PO DAILY
Rx Instructions:
09/08/2023, take with 30 mg for a total of 90 mg.
diclofenac sodium 1 % Gel
2 - 4 g TOPICAL BID
Patient Comments:
09/08/2023, can be applied up to QID with max dose of 32 grams.
Tacrolimus 0.1% 0.1 % cream
1 applic topical DAILY
Patient Comments:
09/08/2023: apply to abdominal wounds; mix with gentamicin compound.
duloxetine 30 mg Capsule,Delayed Release(Dr/Ec)
30 mg PO DAILY
Rx Instructions:
09/08/2023, take with 60 mg for a total of 90 mg.
colestipol 5 gram Packet
2 g PO DAILY
metoprolol tartrate 25 mg Tablet
25 mg PO BID Qty: 60 1RF
pantoprazole 40 mg Tablet,Delayed Release (Dr/Ec)
40 mg PO DAILY Qty: 30 1RF
Acidophilus capsule
1 cap PO DAILY
methocarbamol 500 mg Tablet
500 mg PO [id number] PRN (Reason: muscle spasms)
metronidazole [Flagyl] 500 mg Tablet
500 mg PO Q6H
Patient Comments:
09/08/2023, start date: 09/08/2023; end date: 09/22/2023 (14 days).
melatonin 3 mg Tablet
3 mg PO HS
Rx Instructions:
09/08/2023, take with 5 mg capsule for a total of 8 mg.
amlodipine 5 mg Tablet
5 mg PO DAILY
olanzapine 2.5 mg Tablet
2.5 mg PO DAILY
acetaminophen [Tylenol Extra Strength] 500 mg Tablet
500 mg PO DAILY MDD 3000 mg
Patient Comments:
09/08/2023, give 1 hr prior to wound care.
ondansetron HCl 4 mg/5 mL Solution
4 mg PO Q8H PRN (Reason: nausea/vomiting)
Patient Comments:
09/08/2023, start date: 08/26/2023; end date: 09/25/2023.
magnesium hydroxide [Milk of Magnesia] 400 mg/5 mL Suspension
30 ml PO DAILY PRN (Reason: if no BM in 3 days)
torsemide 5 mg Tablet
5 mg PO DAILY
hydroxychloroquine 200 mg Tablet
400 mg PO BID
melatonin 5 mg Capsule
5 mg PO HS
Rx Instructions:
09/08/2023, take with 3 mg tablet for a total of 8 mg.
Referrals:
Shiv Hall, [Family Provider] -
Interventions
Interventions:
*Risk Screen - Suicide Last Done: 09/08/23 20:18
*General Assessment Last Done: 09/08/23 20:18
*Neglect/Abuse Screening Last Done: 09/08/23 20:18
*ED COVID-19 Vaccine History Last Done: 09/08/23 20:18
Discharge Date and Time
Print Language: POLISH
[2023-09-08] MEDS: NSS 500 IV (20:45)
[2023-09-08 20:46] LABS: % Basophils 0.3 % (0-2); % Lymphocytes 12.6 % (20.5-51.1); % Monocytes 6.6 % (1.7-9.3); % Neutrophils 79.5 % (42.2-75.2); Absolute Immature Granulocytes 0.1 10^3/uL (0-0.05); Absolute Lymphocytes 1.2 10^3/uL (1.2-3.4); Absolute Monocytes 0.6 10^3/uL (0.1-0.6); Absolute Neutrophils 7.5 10^3/uL (1.4-6.5); Hematocrit 34.5 % (37.0-47.0); Hemoglobin 11.3 g/dL (12.0-16.0); Mean Corp Hgb Conc. 32.8 g/dL (33.0-37.0); Mean Corpuscular Hgb 24.6 pg (27.0-31.0); Mean Corpuscular Volume 75.2 fL (81.0-99.0); Mean Platelet Volume 8.3 fL (7.4-10.4); Nucleated Red Blood Cells % 0 %; Platelet Count 357 10^3/uL (130-400); Red Blood Cell Count 4.59 10^6/uL (4.20-5.40); White Blood Cell Count 9.4 10^3/uL (4.8-10.8)
[2023-09-08 21:00] VITALS: BP 120/88
[2023-09-08 22:00] VITALS: BP 130/91
[2023-09-08 22:09] LABS: ALT (SGPT) < 10 U/L (0-35); AST (SGOT) 26 U/L (14-36); Albumin 2.1 g/dl (3.5-5.0); Alkaline Phosphatase 155 U/L (38-126); Blood Urea Nitrogen 12 mg/dl (7-17); Calcium 9.1 mg/dl (8.4-10.2); Carbon Dioxide 19 mmol/L (22-30); Chloride 101 mmol/L (98-107); Estimated Creatinine Clearance 70 ml/min; Glucose 49 mg/dl (70-99); Potassium 3.9 mmol/L (3.5-5.1); Sodium 128 mmol/L (135-145); Total Bilirubin 0.3 mg/dl (0.2-1.3); eGFR > 60.00
[2023-09-08] MEDS: D10W 500 IV (22:17)
--- NOTE | 2023-09-08 22:59 | HPS.HSE ---
Family Physician
-
Family Physician: Shiv Hall, DO
Chief Complaint
-
Decreased oral intake, lethargy
History of Present Illness
72-year-old female from [facility] who reportedly has had poor p.o. intake has not been eating or drinking. She had history of tolerating a dysphagia diet was seen here at [facility] 08/12-08/19 for 9 pound weight loss, and dysphagia.
Patient is extremely lethargic she does open eyes to her name. She does state she cannot swallow the minced diet. She reports they are trying to feed her at the detention but she cannot tolerate or swallow her current diet.
She was recovering from C. difficile and was on oral vancomycin from 08/06 to 08/17/2023. She is past medical history of hypertension, bowel resection with ostomy, CHF, HTN, HLD, GERD, RA with deformities of all fingers at PIP joints, only able to
lift arms to clavicle area bilaterally, depression, nonambulatory, chronic external rotation of the right hip.
Medical History
Past Medical History
Past Medical History: Reports Other
Additional Past Medical History:
Chronic dysphagia
C. difficile on oral Vanco 08/06 - 08/17/2023
hypertension
HLD
CHF
GERD
RA on methotrexate with deformities of all fingers at PIP joints, only able to lift arms to clavicle area bilaterally,
Depression
bowel resection with ostomy
Past Surgical History: Reports Other
Additional Past Surgical History:
Knee surgery
Bilateral hip replacements with chronic right foot external rotation
Shoulder surgery
Bowel resection with colostomy
Back surgery
Cholecystectomy
Social History
Tobacco: Non-smoker
Alcohol: None
Drug: None
Personal: Single
Living: Pen[facility]iary ([facility])
Employment: Retired
Family History
Family History: Not pertinent
Allergies / Home Medications
Allergies reflects when Allergies were last updated in [facility].
Home Medications with original date entered in [facility]
Allergy/Medication List:
Allergies
Allergy/AdvReac Type Severity Reaction Status Date / Time
propoxyphene [From Darvon] Allergy Unknown Verified 09/08/23 23:12
wheat Allergy Unknown Verified 09/08/23 23:12
Home Medications
Tacrolimus 0.1% 1 applic topical DAILY abd wounds 07/16/23
acetaminophen 325 mg tablet 650 mg PO Q6HPRN PRN mild pain/temp>100.4 07/16/23
diclofenac sodium 1 % topical gel 2 - 4 g topical BID lower back 07/16/23
docusate sodium 100 mg capsule 100 mg PO DAILY PRN constipation 07/16/23
duloxetine 60 mg capsule,delayed release 60 mg PO DAILY Mental Health/Anxiety 07/16/23
folic acid 1 mg tablet 1 mg PO DAILY Supplement 07/16/23
gentamicin 0.1 % topical cream 1 applic topical DAILY abd wounds 07/16/23
hydrocortisone 1 % topical cream 1 applic topical [id number] PRN itching on bilateral LEs 07/16/23
methotrexate sodium 2.5 mg tablet 7.5 mg PO .SEE BELOW Autoimmune Disorder 07/16/23
duloxetine 30 mg capsule,delayed release 30 mg PO DAILY Mental Health/Anxiety 07/28/23
colestipol 5 gram oral packet 2 g PO DAILY 08/13/23
metoprolol tartrate 25 mg tablet 25 mg PO BID #60 tabs 08/20/23
pantoprazole 40 mg tablet,delayed release 40 mg PO DAILY #30 tabs 08/20/23
Acidophilus 1 cap PO DAILY 09/08/23
acetaminophen 500 mg tablet (Tylenol Extra Strength) 500 mg PO DAILY 09/08/23
amlodipine 5 mg tablet 5 mg PO DAILY 09/08/23
hydroxychloroquine 200 mg tablet 400 mg PO BID 09/08/23
magnesium hydroxide 400 mg/5 mL oral suspension (Milk of Magnesia) 30 ml PO DAILY PRN if no BM in 3 days 09/08/23
melatonin 3 mg tablet 3 mg PO HS 09/08/23
melatonin 5 mg capsule 5 mg PO HS 09/08/23
methocarbamol 500 mg tablet 500 mg PO [id number] PRN muscle spasms 09/08/23
metronidazole 500 mg tablet 500 mg PO Q6H 09/08/23
olanzapine 2.5 mg tablet 2.5 mg PO DAILY 09/08/23
ondansetron HCl 4 mg/5 mL oral solution 4 mg PO Q8H PRN nausea/vomiting 09/08/23
torsemide 5 mg tablet 5 mg PO DAILY 09/08/23
Review of Systems
-
History Source: Patient and Penitentiary
A 12 point ROS was completed and negative except as noted: Yes
Constitutional: Reports Weight Loss (6lbs since 08/19) and Other (profound lethergy is asleep during the exam will open eyes for a few seconds and answer questions)
Respiratory: Denies Cough or Trouble Breathing
Cardiac: Denies Chest Pain, Palpitations or Syncope
Abdomen/GI: Reports Other (ostomy present right lower quad ); Denies Abdominal Pain, Nausea, Vomiting or Diarrhea
: Denies Dysuria, Frequency or Flank Pain
Musculoskeletal: Reports Other (RA with deformities of all fingers at PIP joints only able to lift arm to clavicle area bilaterally); Denies Joint Pain
Neurological: Reports Weakness (generalized ); Denies Dizzy
Endocrine: Reports No Symptoms
Hematologic/Lymphatic: Reports No Symptoms
Psych: Reports Calm
Physical Exam
Vital Signs
Vital Signs
Temp Pulse Resp BP Pulse Ox
97.5 F 90 11 130/91 96
09/08/23 20:13 09/08/23 22:45 09/08/23 22:45 09/08/23 22:00 09/08/23 20:13
Physical Exam
General: Comfortable, Conversant and Other (Profound lethargy will follow sleep during exam when eyes are open she does answer somewhat appropriately); No Pain, Fever or Chills
HEENT: PERRLA, [place] Conjunctivae and No Ptosis; No Thrush
Respiratory: Clear; No Wheezes, Rales or Rhonchi
Cardiac: S1/S2 and Regular Rhythm; No Murmur, Rub, Gallop or Peripheral Edema
Breast: Deferred by me
GI: Soft, Non Tender, Non Distended, Normal Bowel Sounds, No Hepatosplenomegaly and Ostomy (Present right lower quadrant)
Rectal: Deferred by Provider
Genito-urinary: Deferred by me
Musculoskeletal: No Clubbing, No Cyanosis, No Edema and Other (RA with deformities of all fingers at PIP joints only able to lift arm to clavicle area bilaterally)
Skin: Warm and Dry; No Rash
Neuro: Nonfocal/grossly intact, Cranial Nerves Intact, No Sensory Deficits and Other (Profound lethargy will follow sleep during exam when eyes are open she does answer somewhat appropriately); No Slurred Speech or Facial Droop
Psych: Calm
Laboratory Results
-
09/08/23 20:42
09/08/23 21:45
Laboratory Results
Total Bilirubin 0.3 mg/dl (0.2-1.3) 09/08/23 21:45
AST 26 U/L (14-36) 09/08/23 21:45
ALT < 10 U/L (0-35) 09/08/23 21:45
Alkaline Phosphatase 155 U/L (38-126) H 09/08/23 21:45
Data Reviewed
-
Diagnostic Radiology: Report Reviewed by me
Lab Data: Labs Reviewed by me
Impression/Plan
-
Impression/plan:
Admit to IMU
#Profound lethargy secondary to hypoglycemia will rule out infectious source
#Hypoglycemia secondary to decreased oral intake
Blood sugar 49 was treated with D10 in ER
- will Give D5NSS
-Accu-Cheks every 2 hours
-N.p.o. due to severe lethargic state
-hypoglycemic protocol
-check random and Am cortisol
- check u/a ui software developer, lactic acid and blood cultures
#Hypovolemic hyponatremia
NA 128
will give D5NSS
#Failure to thrive/ chronic deconditioning
#Chronic dysphagia/ Chronic esophageal dysmotility
-Patient is on level 5 minced and moist with thin liquids, meds were to be given 1 at time with sip water chin tuck , 90 degrees
Consult GI- ? consider Gtube due to inabilty to swallow with 6 lb weight loss since 08/20/23
-Hx upper endoscopy found small hiatal hernia, abnormal esophageal motility related to autoimmune disease and chronic deconditioning
CXR: No acute cardiopulmonary process
Esophagus x-ray: Moderately tortuous no evidence of stricture or obstruction
#History of C. difficile
-Treated from 08/06-08/17/2023 with oral vancomycin
#Hx leukopenia with neutropenia secondary to oral vancomycin treatment Hx for C. difficile-resolved
WBC 9.4
follow cbc
#Chronic microcytic anemia
Hgb 11.3 improved from prior 9.6
Ferritin Was 108 on 08/13/2023
#HTN�benign
-BP stable 111/49
When able to swallow may continue metoprolol tartrate 25 mg twice daily this was decreased on July visit with hold parameters
#Chronic bedbound status due to deformities feet, chronic weakness, RA
-Patient reports the use of Oleksandr lift to wheelchair occasionally
#RA with deformities of all fingers at PIP joints only able to lift arm to clavicle area bilaterally
-On methotrexate on Mondays
-Continue hydroxychloroquine 4 mg twice daily
#HLD
-No reported meds
#CHF chronic unknown type
I/O, daily weight
-Hold torsemide
#GERD
-Continue Protonix 40 mg IV
#Chronic back pain/spasms
-Continue topical diclofenac sodium
-On methocarbamol 500 mg every 12 hours
#Depression
-on duloxetine
#Bowel resection with ostomy
#History of insomnia
DVT prophylaxis
sq heparin
Full code per recent admit
[2023-09-08 23:00] VITALS: BP 138/71
--- NOTE | 2023-09-08 23:15 | W.PN.UPDATE ---
Update Note
Progress Note Update
I could not get any information from the patient as she is
Information gathered by chart review and speaking with the ER staff.
This note serves as an addendum to the H&P by water treatment plant mechanic RIAN Kayleigh BURRIS
HPI
72F Res of [facility] , bed bound, total dependent with ADL including feeding, advanced RA with deformities HX chronic FTT, chr dysphagia, recent unremarkable EGD(08/15/23) sent to ER for evaluation of poor PO intake and lethargy.
Noted hypoglycemic BG 49.
PMHX
Chronic dysphagia
C. difficile on oral Vanco 08/06 - 08/17/2023
HTN
HLD
CHF type unknown
GERD
RA on methotrexate with deformities of all fingers at PIP joints, only able to lift arms to clavicle area bilaterally,
Depression
PSHX
bowel resection with ostomy
Knee surgery
Bilateral hip replacements with chronic right foot external rotation
Shoulder surgery
Bowel resection with colostomy
Back surgery
Cholecystectomy
SHX
Tobacco: Non-smoker
Alcohol: None
Drug: None
Personal: Single
Living: [facility] ([facility])
Employment: Retired
Reviewed VS: afebrile borderline hypotension
Wt: 148.7 lb today , was 155 lb on on 08/19
PE
General: lethargic, easily arousable, not interactive
HEENT: Anicteric, very dry OM
Neck : supple
Respiratory: Clear; No Wheezes, Rales or Rhonchi
Cardiac: S1/S2 and Regular Rhythm
GI: Soft, Non Tender, Non Distended, Normal Bowel Sounds, No Hepatosplenomegaly and Ostomy
RLQ Ostomy - yellow colored fecal liquids , no blood
Musculoskeletal: RA with deformities of all fingers at PIP joints, and both feet chronic bedbound
Neuro: lethargic
Psych: limitted eval due to lethargy and slow cognitive speed
Data
Hgb 11.3
MCV 75
Na 128 - baseline 129- 134
CO2 19
Nl eGFR
BG 49
LA pending
Albumin 2.1
Pending UA
BCx
08/14/23: Esophagram:
Moderately tortuous no evidence of stricture or obstruction.
Multiple transient tertiary contractions
08/15/23: EGD
Smooth and congested, tortuous but no evidence of stricture otherwise normal -collection of mucus in the proximal esophagus, consistent with dysmotility
No evidence of esophageal candidiasis but I did brush it for JOSE, there was a small amount of residual but likely contrast from the esophagram and not candidiasis
Last hospitalist admission: 08/13/23 - 08/20/23
PDX: Acute on chronic dysphagia, oral thrush�resolved, ACdz . CHF, RA, GERD,
ASSESSMENT & PLAN
Pending Rx reconciliation
Lethargic: multifactorial encephalopathy plus symptomatic hypoglycemia
Chronic FTT with 6 lbs wt loss over 17-18 days ( BMI 25.6)
Chronic dysphagia of unclear etiology : unremarkable recent EGD and Esophagram for etiology of dysphagia
Underlying advanced RA with both hand deformities plus loss of function and fine motor skills
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
Severe protein calorie malnutrition�(severe hypoalbuminemia and microcytic anemia)
Bedbound status due to deformities feet, weakness: Oleksandr lift to wheelchair occasionally
- BCx
- check UA
- check cortisol ( random and AM)
- Nl Ferritin 108 ( 08/12/23)
- IVF D5 NS
- NPO for aspiration precaution - she is too lethargic
- To consider family meeting for level of care
- To consider feeding tube if family not opted for hospice care
Hyponatremia
Severe hypovolemia
Dehydration
- IV D5NS in place of D10W to avoid hypotonic fluid for now
- Trend Na
Oral thrush vs severe dehydration
- to lethargic Nystatin swish and spit
Relative hypotension
[place] HTN
- Hold amlodipine 5 mg daily,
- Held metoprolol due to aspiration precaution
HLD: No reported Meds
CHF chronic unknown type
- held torsemide
HX C. Diff s/p PO vancomycin since 08/17/2023
Advanced RA with deformities of all fingers at PIP joints, only able to lift arms to clavicle area bilaterally,
- hold MTX takes on Mondays
- held hydroxychloroquine
Chronic LBP/spasms
- Held methocarbamol 500 every 12 hours
Depression
- held duloxetine due to lethargy
Bowel resection with RLQ Ostomy
- normal fecal output
Insomnia
-Hold melatonin
DVT prophylaxis: SQH
Code; Full
IMU
[2023-09-08] MEDS: D5/0.9% SODIUM CHLORIDE 1000 IV (23:48)
[2023-09-08 23:49] LABS: Urine Albumin 1+ (Neg - Trace); Urine Bilirubin 1+ (Negative); Urine Color Amber; Urine Glucose Negative (Negative); Urine Ketone 3+ (Negative); Urine Leukocyte 2+ (Negative); Urine Nitrite Negative (Negative); Urine Occult Blood 4+ (Negative); Urine Urobilinogen Negative (Neg - 1+)
[2023-09-08 23:50] LABS: Urine Character Cloudy (Clear)
[2023-09-09] VITALS (12 sets, daily range): BP systolic 102–141; BP diastolic 59–96; BMI 24.7
[2023-09-09 00:03] LABS: Glucose - Point of Care 153 mg/dl (70-99)
[2023-09-09 00:44] LABS: Urine Bacteria Many (Negative); Urine Red Blood Cell >100 /HPF (0-2); Urine White Cell >100 /HPF (0-5)
[2023-09-09] MEDS: D10W IV (01:17)
--- NOTE | 2023-09-09 01:18 | PTCARENOTE ---
Received pt from ED RN. Pt pulled over from the stretcher to our bed. Pt is AAOx3, tearful, pt c/o difficulty swallowing - pt NPO. NSR on the monitor. On RA O2 sat 99%, lungs diminished. Pt incont of urine - pw in place. Right colostomy in place.
Right LQ abd wound (wound care provided - wound consult ordered). D5 NS infusing @ 80 ml/hr. CHG provided. Pt refusing Q2T. Pt is laying in bed with call butler in reach.
[2023-09-09 01:22] LABS: Cortisol, Random 19.4 ug/dl
[2023-09-09 02:31] LABS: Glucose - Point of Care 143 mg/dl (70-99)
[2023-09-09 06:43] LABS: Glucose - Point of Care 139 mg/dl (70-99)
[2023-09-09] MEDS: HEPARIN 5000 UNITS SC ×2 (07:44→20:10)
[2023-09-09] MEDS: DICLOFENAC 1% TOPICAL GEL 4 GRAM TOPICAL ×2 (07:48→20:12)
[2023-09-09] MEDS: GENTAMICIN 0.1% CREAM 1 APPLIC TOPICAL (07:49)
[2023-09-09 08:17] LABS: Glucose - Point of Care 116 mg/dl (70-99)
[2023-09-09 08:18] LABS: % Basophils 0.4 % (0-2); % Immature Granulocytes 0.8 % (0-0.5); % Lymphocytes 11.5 % (20.5-51.1); % Monocytes 10.5 % (1.7-9.3); % Neutrophils 76.8 % (42.2-75.2); Absolute Immature Granulocytes 0.1 10^3/uL (0-0.05); Absolute Monocytes 0.9 10^3/uL (0.1-0.6); Absolute Neutrophils 6.4 10^3/uL (1.4-6.5); Hematocrit 31.7 % (37.0-47.0); Hemoglobin 10.5 g/dL (12.0-16.0); Mean Corp Hgb Conc. 33.1 g/dL (33.0-37.0); Mean Corpuscular Hgb 24.6 pg (27.0-31.0); Mean Corpuscular Volume 74.2 fL (81.0-99.0); Mean Platelet Volume 8.6 fL (7.4-10.4); Nucleated Red Blood Cells % 0 %; Platelet Count 275 10^3/uL (130-400); Red Blood Cell Count 4.27 10^6/uL (4.20-5.40); Red Cell Dist. Width 17.8 % (11.5-14.5); White Blood Cell Count 8.3 10^3/uL (4.8-10.8)
[2023-09-09 08:41] LABS: ALT (SGPT) < 10 U/L (0-35); AST (SGOT) 23 U/L (14-36); Alkaline Phosphatase 164 U/L (38-126); Blood Urea Nitrogen 10 mg/dl (7-17); Calcium 9.2 mg/dl (8.4-10.2); Carbon Dioxide 19 mmol/L (22-30); Chloride 103 mmol/L (98-107); Estimated Creatinine Clearance 73 ml/min; Glucose 111 mg/dl (70-99); Potassium 3.5 mmol/L (3.5-5.1); Sodium 128 mmol/L (135-145); Total Bilirubin 0.3 mg/dl (0.2-1.3); Total Protein 4.8 g/dl (6.3-8.2); eGFR > 60.00
--- NOTE | 2023-09-09 09:10 | W.PN.HOSP.TC ---
Today's Communication/Plan
-
GI consult
Assessment / Plan
Assessment / Plan
Gen-AAOx3, NAD, chronically ill
HEENT-NC, AT, anicteric, clear oral mm
Neck-supple
CV-reg, no M, +S1/S2
Lungs-clear B/L
Abd-soft, NT, ND
Ext-no edema
Musculoskeletal-no cyanosis, clubbing
Skin-warm and dry
Neuro-grossly non-focal
Psych-calm, cooperative
Failure to thrive -due to severe malnutrition, dysphagia, etc. At this point in time her only option is either a feeding tube or hospice if she wishes for nonaggressive means of treatment. She is leaning towards a feeding tube. Will consult GI.
I left a voicemail for family to call me back.
No evidence of adrenal insufficiency. Check TSH.
Hypovolemic hyponatremia -sodium 128. Continue normal saline.
Hypoglycemia - likely due to malnutrition. Glucose improved.
Asymptomatic pyuria -urine culture sent. Hold antibiotics for now. No signs of infection systemically.
Chronic microcytic anemia -hemoglobin better than last admission. Suspect chronic inflammatory anemia. Iron panel in July did not reveal iron deficiency. B12 and folic acid levels normal.
Advanced RA
Functional quadriplegia
History of C. difficile colitis -completed treatment. Reason for metronidazole? I tried to call [facility] nursing call but unable to connect with anyone.
Essential hypertension -stable.
Hyperlipidemia
GERD
Depression
Chronic heart failure unknown type
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
Full code
Dispo -back to correction when medically stable.
Anticipated Discharge: > 48 hours
Subjective/Interval History
-
Date of Service: September 09, 2023
Patient seen and examined. Complaining of mucus in her throat.
Objective Data
-
Labs:
Laboratory Results
09/08/23 09/09/23
21:45 08:02
WBC 8.3
Hgb 10.5 L
Hct 31.7 L
Plt Count 275 D
Sodium 128 L 128 L
Potassium 3.9 3.5
Chloride 101 103
Carbon Dioxide 19 L 19 L
BUN 12 10
Creatinine 0.4 L 0.3 L
Glucose 49 L* 111 H
Calcium 9.1 9.2
Total Bilirubin 0.3 0.3
AST 26 23
ALT < 10 < 10
Alkaline Phosphatase 155 H 164 H
Vital Signs:
Vital Signs
Temp Pulse Resp BP Pulse Ox
96.4 F L 97 13 141/71 99
09/09/23 02:43 09/09/23 06:01 09/09/23 06:01 09/09/23 06:01 09/09/23 06:01
I&O
09/08/23 09/09/23 09/10/23
06:59 06:59 06:59
Intake Total 480 / 480
Balance 480 / 480
Review of Systems
-
History Source: Patient
All other systems: Reviewed and negative
[2023-09-09 09:11] LABS: Cortisol, Random 14.2 ug/dl
--- NOTE | 2023-09-09 09:40 | PTCARENOTE ---
Patient's daughter yT Sutton called for update. When reviewing her phone number she said it was incorrect. The correct number is [phone]; admissions called and updated. [place] text sent to Dr Alaniz.
[2023-09-09 09:42] LABS: Glycohemoglobin (HgbA1c) 4.6 % (4.0-5.6)
--- NOTE | 2023-09-09 10:08 | CON.GI ---
Addendum entered and electronically signed by Coleen Li DO 09/09/23 14:26:
Patient seen and examined independently of CLINICAL RESEARCH PHYSICIAN. I agree with her note with my additions below
Johanna is a 73-year-old female with history of RA currently not on any immunosuppression but previously on years of steroids with roughly 6 months of dysphagia likely secondary to dysmotility in the setting of her RA with a negative esophagram and
endoscopy just recently who is here in July for dysphagia and nausea as well as coughing choking and bringing back up mucus and pills. She comes back from the nursing facility with change in mental status found to be hypoglycemic and dehydrated.
She is significantly somnolent on exam and falls asleep easily. She has an ostomy that was placed years ago but does not know why. She has lost a good amount of weight since her last admission. She is bedbound and has been for the last few
months. During her last admission we discussed the possibility of a PEG tube versus hospice versus attempting to get nutrition orally. Today, she is very sleepy but says she would prefer a PEG tube over hospice.
Vitals show -patient is hypothermic, no leukocytosis, chronic anemia with a hemoglobin of 10.5 with an MCV of 74, platelets of 275, BUN 10, creatinine 0.3, sodium 128, potassium 3.5, lactic acid 1.0, hemoglobin A1c 4.6, alkaline phosphatase 164, ALT
less than 10, AST 23, albumin 2, TSH 1.8, random cortisol 14. Her urine shows many bacteria with greater than 100 WBCs and 100 RBCs. Culture is pending. Blood cultures are pending.
On exam she has a tender abdomen with an ostomy in place and a bandage over a wound next to her ostomy. She is chronically ill-appearing and somnolent and can barely keep her eyes open during our discussion
Today speech therapy saw her but she was too somnolent for a bedside exam
# Severe calorie malnutrition, dysphagia and nausea
-- Patient's symptoms are likely multifactorial in the setting of severe RA with likely associated GI dysmotility and lack of access with her inability to feed herself
-- Patient was only tolerating soups and has been overly somnolent and likely missing meals
-- Her albumin is 2
-- She is in agreement for PEG tube however she is currently tender on exam with a hardness on her left abdomen that I would prefer to have CT imaging with oral contrast done
-- She needs to be more awake to protect her airway for oral contrast
-- Other option is to place a Dobbhoff tube which may be a good idea to see if she can even tolerate tube feeds
-- Cultures pending
-- Discussed with hospitalist
Original Note:
Consultation
-
Date/Time Consultation Requested: 09/08/23 2309
Date/Time Consultation Performed: 09/09/23 1000
Requesting Provider: Dt. Mock
Performing Provider: Dr. Li/BIBI Edwards
Reason for Consultation: dysphagia/PEG tube
Medical History
Chief Complaint / HPI
Chief Complaint: decreased oral intake
History of Present Illness:
73 year old female with a past medical history of RA, HTN, hyperlipidemia, dysphagia on minced diet who presents to the hospital from snf for dysphagia, decreased oral intake and extreme lethargy found to have hypoglycemia of 49 on arrival.
We saw her when she was here during her hospitalization from August 14 through for dysphagia and nausea. At that time she we saw her as she was having sensation of food 'getting stuck'. Associated with coughing and choking and bringing food and
pills back up. She had a video esophagram on 08/14/2023 that showed moderately torturous esophagus with no evidence of stricture or obstruction. There were multiple tertiary contractions. She had an EGD on 08/15/2023 that was torturous but no
evidence of stricture and otherwise normal. There was a collection of mucus in the proximal esophagus consistent with dysmotility. No evidence of esophageal candidiasis. The patient was was tolerating a dysphagia diet level 5 minced and moist
with thin liquids, aspiration precautions. We also recommended mirtazapine. Appears that that was not started. She was also continued on pantoprazole 40 mg daily. The patient was brought in to the hospital for severe lethargy. She states that
she was not tolerating her diet at the snf. She states the only food that she was able to tolerate were things like 'soups'. She states she cannot tolerate the minced diet. She does have some intermittent nausea at times. Currently she
does not feel nauseous. We discussed the possibility of a PEG tube. She states that she understands with this is as her neighbor used to have one. She is agreeable to this. She denies any fevers, chills, vomiting, melena, hematochezia,
odynophagia. She cannot visualize her bowel movements as she is currently bedbound. However she was not bedbound approximately 3 months ago. The patient currently weighs 67.4 kg down from 70.5 kg on 08/20/2023. This is also down from 74.8 kg
07/16/2023. A phone call was placed to the patient's daughter Ty, she will be coming to the hospital with her today. Discussion with family and patient both state they are not ready for hospice at this time given new onset of sx
approximately 2 months ago. Patient cannot recall why she had colon resection. She had this performed at [facility]. Last colonoscopy in 2019 at [facility]. Per EMS records patient was being treated for cellulitis as well for past 2 weeks. MAR
states patient was on Gentamycin topical to abdominal wound and Flagyl 500 mg po q 6 hrs.
Past Medical History
Past Medical History: HTN, Hypercholesterolemia and Other (RA, bowel resection with ostomy (2014))
Past Surgical History: Bowel Resection (with ostomy, 2014)
Social History
Tobacco: Former Smoker (quit 35 years ago)
Alcohol: None
Drug: None
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
Family History
Family History: Other (No family history gastrointestinal malignancies or IBD)
Allergies / Home Medications
Allergy/AdvReac Type Severity Reaction Status Date / Time
propoxyphene [From Darvon] Allergy Unknown Verified 09/08/23 23:12
wheat Allergy Unknown Verified 09/08/23 23:12
�Medication �Instructions �Recorded
Tacrolimus 0.1% 1 applic topical DAILY abd wounds 07/16/23
acetaminophen 325 mg tablet 650 mg PO Q6HPRN PRN mild 07/16/23
pain/temp>100.4
diclofenac sodium 1 % topical gel 2 - 4 g topical BID lower back 07/16/23
docusate sodium 100 mg capsule 100 mg PO DAILY PRN constipation 07/16/23
duloxetine 60 mg capsule,delayed 60 mg PO DAILY Mental 07/16/23
release Health/Anxiety
folic acid 1 mg tablet 1 mg PO DAILY Supplement 07/16/23
gentamicin 0.1 % topical cream 1 applic topical DAILY abd wounds 07/16/23
hydrocortisone 1 % topical cream 1 applic topical [id number] PRN 07/16/23
itching on bilateral LEs
methotrexate sodium 2.5 mg tablet 7.5 mg PO .SEE BELOW 07/16/23
Autoimmune Disorder
duloxetine 30 mg capsule,delayed 30 mg PO DAILY Mental 07/28/23
release Health/Anxiety
colestipol 5 gram oral packet 2 g PO DAILY 08/13/23
metoprolol tartrate 25 mg tablet 25 mg PO BID #60 tabs 08/20/23
pantoprazole 40 mg tablet,delayed 40 mg PO DAILY #30 tabs 08/20/23
release
Acidophilus 1 cap PO DAILY 09/08/23
acetaminophen 500 mg tablet 500 mg PO DAILY 09/08/23
(Tylenol Extra Strength)
amlodipine 5 mg tablet 5 mg PO DAILY 09/08/23
hydroxychloroquine 200 mg tablet 400 mg PO BID 09/08/23
magnesium hydroxide 400 mg/5 mL 30 ml PO DAILY PRN if no BM in 3 09/08/23
oral suspension (Milk of Magnesia) days
melatonin 3 mg tablet 3 mg PO HS 09/08/23
melatonin 5 mg capsule 5 mg PO HS 09/08/23
methocarbamol 500 mg tablet 500 mg PO [id number] PRN muscle spasms 09/08/23
metronidazole 500 mg tablet 500 mg PO Q6H 09/08/23
olanzapine 2.5 mg tablet 2.5 mg PO DAILY 09/08/23
ondansetron HCl 4 mg/5 mL oral 4 mg PO Q8H PRN nausea/vomiting 09/08/23
solution
torsemide 5 mg tablet 5 mg PO DAILY 09/08/23
Review of Systems
-
All other systems: A 12 pt ROS was Negative except as stated above in HPI
Vital Signs
Temp Pulse Resp BP Pulse Ox
96.4 F L 97 13 141/71 99
09/09/23 02:43 09/09/23 06:01 09/09/23 06:01 09/09/23 06:01 09/09/23 06:01
Physical Exam
Exam
General: No Apparent Distress
HEENT: Anicteric
Respiratory: Clear (anterior)
Cardiac: Regular Rhythm
GI: Soft, Non Distended, Normal Bowel Sounds and Tender (mild tenderness to the right of ostomy (wound/covered), ostomy in right side, area of hard scar tissue in left abdomen (patient states site of prior ostomy))
Musculoskeletal: Other (deformed hand joints)
Skin: Warm and Dry
Neuro: Awake, Alert and Oriented
Psych: Calm
Results
WBC 8.3 10^3/uL (4.8-10.8) 09/09/23 08:02
Hgb 10.5 g/dL (12.0-16.0) L 09/09/23 08:02
Hct 31.7 % (37.0-47.0) L 09/09/23 08:02
MCV 74.2 fL (81.0-99.0) L 09/09/23 08:02
Plt Count 275 10^3/uL (130-400) D 09/09/23 08:02
Absolute Neuts (auto) 6.4 10^3/uL (1.4-6.5) 09/09/23 08:02
Sodium 128 mmol/L (135-145) L 09/09/23 08:02
Potassium 3.5 mmol/L (3.5-5.1) 09/09/23 08:02
Chloride 103 mmol/L (98-107) 09/09/23 08:02
Carbon Dioxide 19 mmol/L (22-30) L 09/09/23 08:02
BUN 10 mg/dl (7-17) 09/09/23 08:02
Creatinine 0.3 mg/dL (0.6-1.0) L 09/09/23 08:02
Calcium 9.2 mg/dl (8.4-10.2) 09/09/23 08:02
Total Bilirubin 0.3 mg/dl (0.2-1.3) 09/09/23 08:02
AST 23 U/L (14-36) 09/09/23 08:02
ALT < 10 U/L (0-35) 09/09/23 08:02
Alkaline Phosphatase 164 U/L (38-126) H 09/09/23 08:02
Diagnostic Image Results:
none this admission
Prior GI Procedures:
08/14/23: esophagram: Moderately tortuous no evidence of stricture or obstruction. Multiple transient tertiary contractions
08/15/23: EGD, smooth and congested, tortuous but no evidence of stricture otherwise normal -collection of mucus in the proximal esophagus, consistent with dysmotility
-- No evidence of esophageal candidiasis but I did brush it for JOSE, there was a small amount of residual but likely contrast from the esophagram and not candidiasis
Colonoscopy: Prior colonoscopies at [facility], 2015 and 2019.
Assessment / Plan
-
73 year old female with a past medical history of RA, HTN, hyperlipidemia, dysphagia on minced diet who presents to the hospital from snf for dysphagia, decreased oral intake and extreme lethargy found to have hypoglycemia of 49 on arrival.
We saw her when she was here during her hospitalization from August 14 through for dysphagia and nausea. At that time she we saw her as she was having sensation of food 'getting stuck'. Associated with coughing and choking and bringing food and
pills back up. She had a video esophagram on 08/14/2023 that showed moderately torturous esophagus with no evidence of stricture or obstruction. There were multiple tertiary contractions. She had an EGD on 08/15/2023 that was torturous but no
evidence of stricture and otherwise normal. There was a collection of mucus in the proximal esophagus consistent with dysmotility. No evidence of esophageal candidiasis. The patient was was tolerating a dysphagia diet level 5 minced and moist
with thin liquids, aspiration precautions. We also recommended mirtazapine. Appears that that was not started. She was also continued on pantoprazole 40 mg daily. The patient was brought in to the hospital for severe lethargy. She states that
she was not tolerating her diet at the snf. She states the only food that she was able to tolerate were things like 'soups'. She states she cannot tolerate the minced diet. We are asked to evaluate for PEG tube placement. Patient states
that she knows what a PEG tube is. She states her neighbor had one. She states that she does not want to go on hospice. She is agreeable to a PEG tube at this time. We did discuss that this does not preclude her from eating for pleasure foods
that are within her capability/safe range from a dysphagia standpoint. The patient states to me that she is able to tolerate things like soup. Phone call was placed to patient's daughter Ty who will be coming to the hospital today as well.
Impression:
Dysphagia-> concerns for motility disorder (evidenced by tertiary contractions on esophagram, EGD with collection of mucus in the proximal esophagus consistent with dysmotility)
Protein calorie malnutrition with inability to meet daily needs
Weight loss-> documented 15 pounds in less than 8-weeks
Hypoglycemia secondary to decreased oral intake
RA-> on MTX/Plaquenil
Plan:
-Patient agreeable for PEG tube placement. Family is coming to hospital later today. Discussed with patient's son-in-law, Daughter Ty on her way. They are not ready for hospice as this is acute since June.
-Add Pantoprazole 40 mg IV daily
-Further recommendations to be forthcoming. Dr. Li to see patient.
Data Reviewed
-
Old Records: Reviewed
-
-
Thank you for consultation and allowing me to participate in the patient's care. Please call the [facility] physician during the after hours with any questions or concerns.
[2023-09-09 11:39] LABS: Glucose - Point of Care 136 mg/dl (70-99)
[2023-09-09] MEDS: D5/0.9% SODIUM CHLORIDE 1000 IV ×2 (11:56→23:59)
--- NOTE | 2023-09-09 12:23 | WOUNDNOTE ---
L LOWER MEDIAL LEG
--- NOTE | 2023-09-09 12:26 | WOUNDNOTE ---
WON RN note: Patient admitted with hypoglycemia and failure to thrive.
See H&P for complete history. From [facility].
PMH: CHF, HTN, hyperlipidemia, bowel resection with colostomy, urinary incontinence, arthritis, depression
Wound Location and type/assessment: Patient known to service last seen 08/20/23 for same abdominal wounds due to leaking ostomy appliance, patient claimed. Proximal R abdominal wound appears improved, partial thickness with few open dry areas.
Distal abdominal wound full thickness with sagging adherent nichole and brown eschar. No odor noted, drainage moderate. Had 2 FT distal abdominal wounds last time that have merged into one larger wound. Patients ostomy appliance 2 piece Jose Manuel is
intact, stoma is retracted. Patient states appliance just changed recently, used to be able to do on own but not now. Output minimal, no leakage, did not bring in own supplies. Last admission used convex [employer] barrier #[id number] and pouch # [id number]
with Ynes seal. Brought 2 3/4' Convex wafer x2 to , will order remainder of supplies, nursing can change. Heels intact feet very dry and scaly. Sacrum is intact, skin folds under breasts with slit like moist red openings. Nurse Penny assisted
with turning patient.
Appetite: NPO, dysphagia with severe malnutrition, for possible feeding tube.
Pressure redistribution devices in place: On [facility] air bed, recommend keep on air mattress if transferred or Static air overlay. Heels off-loaded with pillows under calves, foams on heels.
Plan: Gentamicin cream already on order for wounds with additional adaptic and dry dressings. Called [facility] for ostomy supplies, nurse Penny aware and will bring to . Nursing can do appliance changes q 3-4 days or if leakage. Will defer to
hospitalist for need of surgical consult to distal abdominal wound. Care plan and discharge instructions updated. Will return to SNF on discharge, patient reports has title specialist there that follows wounds.
--- NOTE | 2023-09-09 13:02 | PTOTSP ---
Dysphagia Evaluation
Patient with history of oral/pharyngeal and esophageal dysphagia, admitted with FTT, malnutrition, and dysphagia with inability to swallow solids. She is at an acute elevated risk for worsened oral/pharyngeal dysphagia given current lethargy.
Video swallow study 08/18/2023 mild-moderate oral, moderate pharyngeal dysphagia. Transient aspiration without cough with thin liquids and trace deep penetration after the swallow with puree. No penetration with thin liquids with chin tuck. Pt
opted to continue an oral diet (L5 minced/moist, L0) understanding aspiration risks/complications.
Patient/family electing for PEG but requesting PO for comfort. Consider the following.
Recommend:
1. NPO
2. Medications via non-oral means
3. Aspiration Risk Hydration Protocol - single sips of thin liquids via cup (tuck chin) only when awake/alert, after oral care, with nursing supervision
4. Will follow up for further assessment as able/medically appropriate.
[2023-09-09] MEDS: ZOFRAN 4 MG IV (15:21)
--- NOTE | 2023-09-09 15:43 | CON.GS ---
Medical History
-
Chief Complaint: Malnutrition and failure to thrive
History of Present Illness:
Patient is a 73 yo F with a PMH of morbid obesity, GERD, HTN, HLD, CHF, RA (on Methotrexate and Hydroxychloroquine), s/p cholecystectomy, and s/p open bowel resection with colostomy (unknown date and place). She presents in transfer from [facility]
long-term with malnutrition and failure to thrive. She has objectively lost 9 pounds and has issues with dysphagia. She has failed a swallow study with tentative plans for PEG tube placement. General surgery has been consulted due to concerns
for a RLQ abdominal wound just inferior to her ostomy. She denies any pain in this area. No significant drainage. Wound does cause some logistical issues with pouching.
Past Medical History
Past Medical History: GERD, HTN, Hypercholesterolemia, Psychiatric (Depression/anxiety) and Other (Morbid obesity, C. difficile)
Past Surgical History: Bowel Resection (Partial colectomy with end transverse colostomy), Cholecystectomy and Orthopedic (Bilateral hip replacements, knee replacement, back surgery)
Social History
Tobacco: Non-Smoker
Alcohol: None
Drug: None
Living: [facility]
Family History
Family History: Reviewed & Not Pertinent
Allergies / Home Medications
Allergy/AdvReac Type Severity Reaction Status Date / Time
propoxyphene [From Darvon] Allergy Unknown Verified 09/08/23 23:12
wheat Allergy Unknown Verified 09/08/23 23:12
�Medication �Instructions �Recorded �Confirmed �Type
Tacrolimus 0.1% 1 applic topical DAILY abd wounds 07/16/23 09/08/23 History
acetaminophen 325 mg tablet 650 mg PO Q6HPRN PRN mild 07/16/23 09/08/23 History
pain/temp>100.4
diclofenac sodium 1 % topical gel 2 - 4 g topical BID lower back 07/16/23 09/08/23 History
docusate sodium 100 mg capsule 100 mg PO DAILY PRN constipation 07/16/23 09/08/23 History
duloxetine 60 mg capsule,delayed 60 mg PO DAILY Mental 07/16/23 09/08/23 History
release Health/Anxiety
folic acid 1 mg tablet 1 mg PO DAILY Supplement 07/16/23 09/08/23 History
gentamicin 0.1 % topical cream 1 applic topical DAILY abd wounds 07/16/23 09/08/23 History
hydrocortisone 1 % topical cream 1 applic topical [id number] PRN 07/16/23 09/08/23 History
itching on bilateral LEs
methotrexate sodium 2.5 mg tablet 7.5 mg PO .SEE BELOW 07/16/23 09/08/23 History
Autoimmune Disorder
duloxetine 30 mg capsule,delayed 30 mg PO DAILY Mental 07/28/23 09/08/23 History
release Health/Anxiety
colestipol 5 gram oral packet 2 g PO DAILY High Cholesterol 08/13/23 09/08/23 History
metoprolol tartrate 25 mg tablet 25 mg PO BID #60 tabs 08/20/23 09/08/23 Rx
pantoprazole 40 mg tablet,delayed 40 mg PO DAILY #30 tabs 08/20/23 09/08/23 Rx
release
Acidophilus 1 cap PO DAILY Supplement 09/08/23 09/08/23 History
acetaminophen 500 mg tablet 500 mg PO DAILY Pain 09/08/23 09/08/23 History
(Tylenol Extra Strength)
amlodipine 5 mg tablet 5 mg PO DAILY Blood Pressure 09/08/23 09/08/23 History
hydroxychloroquine 200 mg tablet 400 mg PO BID 09/08/23 09/08/23 History
magnesium hydroxide 400 mg/5 mL 30 ml PO DAILY PRN if no BM in 3 09/08/23 09/08/23 History
oral suspension (Milk of Magnesia) days
melatonin 3 mg tablet 3 mg PO HS 09/08/23 09/08/23 History
melatonin 5 mg capsule 5 mg PO HS INSOMNIA 09/08/23 09/08/23 History
methocarbamol 500 mg tablet 500 mg PO [id number] PRN muscle spasms 09/08/23 09/08/23 History
metronidazole 500 mg tablet 500 mg PO Q6H Infection 09/08/23 09/08/23 History
olanzapine 2.5 mg tablet 2.5 mg PO DAILY Mental 09/08/23 09/08/23 History
Health/Anxiety
ondansetron HCl 4 mg/5 mL oral 4 mg PO Q8H PRN nausea/vomiting 09/08/23 09/08/23 History
solution
torsemide 5 mg tablet 5 mg PO DAILY Fluid 09/08/23 09/08/23 History
Retention/Swelling
Review of Systems
-
A 10 point review of systems was completed, and was negative except as per HPI.
Physical Exam
Vital Signs
Temp Pulse Resp BP Pulse Ox
96.9 F L 98 19 118/59 99
09/09/23 11:50 09/09/23 12:00 09/09/23 12:00 09/09/23 12:00 09/09/23 12:00
09/08/23 09/09/23 09/10/23
06:59 06:59 06:59
Actual Weight 67.4 kg
Body Mass Index (BMI) 24.7
Lab Results
09/09/23 08:02
09/09/23 08:02
WBC 8.3 10^3/uL (4.8-10.8) 09/09/23 08:02
Hgb 10.5 g/dL (12.0-16.0) L 09/09/23 08:02
Hct 31.7 % (37.0-47.0) L 09/09/23 08:02
Plt Count 275 10^3/uL (130-400) D 09/09/23 08:02
Abs Immat Gran (auto) 0.1 10^3/uL (0-0.05) H 09/09/23 08:02
Neutrophils % 76.8 % (42.2-75.2) H 09/09/23 08:02
Physical Exam
General: No Apparent Distress
HEENT: Normocephalic and Anicteric
Respiratory: Non Labored Respirations
Cardiac: Regular Rhythm
GI: Soft, Non Tender, Non Distended, Obese and Other (RLQ ostomy, retracted, viable, stool in appliance, inferior open wound with desiccated and necrotic fat, no active purulence, no surrounding erythema, nontender, no palpable fluctuance)
Skin: Other (Thin and friable skin with poor skin turgor, multiple skin tears)
Data Reviewed
-
CT Scan: Image Personally Visualized and interpreted and Report Reviewed by me
Labs: Labs Reviewed by me
Old Records: Requested
Assessment / Plan
-
Patient is a 73 yo F p/w malnutrition and failure to thrive
Abdominal wound secondary to shearing forces from ostomy appliance combined with underlying issues with wound healing. Evidence of fat necrosis and desiccation, no concern for active or worsening infection. has a very poor ability to heal
her wounds given her malnutrition, immunosuppression, obesity, and possible stool contamination. Debridement is unlikely to affect her overall clinical picture and likely to create a larger wound and reset the clock of a nonhealing wound until her
underlying medical issues preventing healing have been addressed. No plans for surgical debridement at this time. Recommend continued local wound care. Recommend outpatient follow-up with a wound care center for considerations of debridement once
underlying issues have been addressed. Define goals of care.
-- No plans for surgical debridement at this time.
-- Recommend continued local wound care.
-- Recommend outpatient follow-up with a wound care center for considerations of debridement once underlying issues have been addressed.
-- Define goals of care.
[2023-09-09] MEDS: DESENEX/MITRAZOL/ZEASORB 1 APPLIC TOPICAL (20:11)
[2023-09-10] VITALS (14 sets, daily range): BP systolic 98–166; BP diastolic 52–93; BMI 25.7
[2023-09-10] MEDS: OFIRMEV 100 IV ×2 (00:17→05:33)
[2023-09-10 00:21] LABS: Glucose - Point of Care 115 mg/dl (70-99)
--- NOTE | 2023-09-10 01:34 | PTCARENOTE ---
Pt c/o abd pain, unable to rate. BIBI Shane notified, 1x dose of IV Ofirmev given (see MAR).
[2023-09-10 04:18] LABS: % Basophils 0.2 % (0-2); % Lymphocytes 9.6 % (20.5-51.1); % Monocytes 8.4 % (1.7-9.3); % Neutrophils 80.8 % (42.2-75.2); Absolute Immature Granulocytes 0.1 10^3/uL (0-0.05); Absolute Lymphocytes 0.8 10^3/uL (1.2-3.4); Absolute Monocytes 0.7 10^3/uL (0.1-0.6); Absolute Neutrophils 6.6 10^3/uL (1.4-6.5); Hematocrit 30.7 % (37.0-47.0); Mean Corp Hgb Conc. 32.6 g/dL (33.0-37.0); Mean Corpuscular Hgb 24.3 pg (27.0-31.0); Mean Corpuscular Volume 74.7 fL (81.0-99.0); Mean Platelet Volume 8.6 fL (7.4-10.4); Nucleated Red Blood Cells % 0 %; Platelet Count 245 10^3/uL (130-400); Red Blood Cell Count 4.11 10^6/uL (4.20-5.40); Red Cell Dist. Width 17.6 % (11.5-14.5); White Blood Cell Count 8.2 10^3/uL (4.8-10.8)
[2023-09-10 04:46] LABS: ALT (SGPT) < 10 U/L (0-35); AST (SGOT) 21 U/L (14-36); Albumin 1.9 g/dl (3.5-5.0); Alkaline Phosphatase 135 U/L (38-126); Blood Urea Nitrogen 8 mg/dl (7-17); Calcium 8.6 mg/dl (8.4-10.2); Carbon Dioxide 18 mmol/L (22-30); Chloride 109 mmol/L (98-107); Estimated Creatinine Clearance 73 ml/min; Glucose 103 mg/dl (70-99); Potassium 3.2 mmol/L (3.5-5.1); Sodium 133 mmol/L (135-145); Total Bilirubin 0.3 mg/dl (0.2-1.3); Total Protein 4.6 g/dl (6.3-8.2); eGFR > 60.00
[2023-09-10] MEDS: KCL 270 MEQ IV (05:06)
[2023-09-10 06:32] LABS: Glucose - Point of Care 108 mg/dl (70-99)
[2023-09-10 07:55] LABS: Glucose - Point of Care 126 mg/dl (70-99)
[2023-09-10] MEDS: ZOFRAN 4 MG IV (08:02)
[2023-09-10] MEDS: HEPARIN 5000 UNITS SC ×2 (08:03→20:29)
--- NOTE | 2023-09-10 08:22 | W.PN.GI.CBS2 ---
Addendum entered and electronically signed by Coleen Li DO 09/10/23 19:53:
per dietary consult: TF recs for 3355 Kraft: initiate Osmolite 1.2 at 20 ml/hr, increase 10 ml/hr q8hr to goal rate of 65 ml/hr to provide 1430 ml total volume, 1716 kcal (102% needs), 79gm protein (99% needs), 1173 ml free water. Automatic flush 25
ml/hr for 1773 ml total free water or per MD.
Request replete and monitor k+, mg, phos as needed as TF progresses.
Original Note:
Today's Communication / Plan
-
- dobhoff, xray
- CT scan
Assessment / Plan
-
73 year old female with a past medical history of RA, HTN, hyperlipidemia, dysphagia on minced diet who [facility], decreased oral intake and extreme lethargy found to have hypoglycemia of 49 on arrival.
We saw her when she was here during her hospitalization from August 14 through for dysphagia and nausea. At that time she we saw her as she was having sensation of food 'getting stuck'. Associated with coughing and choking and bringing food and
pills back up. She had a video esophagram on 08/14/2023 that showed moderately torturous esophagus with no evidence of stricture or obstruction. There were multiple tertiary contractions. She had an EGD on 08/15/2023 that was torturous but no
evidence of stricture and otherwise normal. There was a collection of mucus in the proximal esophagus consistent with dysmotility. No evidence of esophageal candidiasis. The patient was was tolerating a dysphagia diet level 5 minced and moist
with thin liquids, aspiration precautions. We also recommended mirtazapine. Appears that that was not started. She was also continued on pantoprazole 40 mg daily. The patient was brought in to the hospital for severe lethargy. She states that
she was not tolerating [facility]. She states the only food that she was able to tolerate were things like 'soups'. She states she cannot tolerate the minced diet. We are asked to evaluate for PEG tube placement. Patient states
that she knows what a PEG tube is. She states her neighbor had one. She states that she does not want to go on hospice. She is agreeable to a PEG tube at this time. We did discuss that this does not preclude her from eating for pleasure foods
that are within her capability/safe range from a dysphagia standpoint. The patient states to me that she is able to tolerate things like soup. Phone call was placed to patient's daughter Ty who will be coming to the hospital today as well.
Impression:
Dysphagia-> concerns for motility disorder (evidenced by tertiary contractions on esophagram, EGD with collection of mucus in the proximal esophagus consistent with dysmotility)
Protein calorie malnutrition with inability to meet daily needs
Weight loss-> documented 15 pounds in less than 8-weeks
Hypoglycemia secondary to decreased oral intake
RA-> on MTX/Plaquenil
09/10/23
-Dobbhoff placed today in order to do oral contrast CT scan - checking xray to confirm position
-Nutrition consultation for tube feeds
-Added prealbumin and GGT to labs
-Potassium repletion via primary team
-Zofran as needed nausea
Subjective
Subjective
Date of Service: September 10, 2023
patient more alert today. willing to do a dobhoff to get contrast in for CT study and to trial tube feeds
Objective
Data Reviewed
Laboratory Data:
Laboratory Results
09/10/23 04:10
09/10/23 04:10
Laboratory Results
Total Bilirubin 0.3 mg/dl (0.2-1.3) 09/10/23 04:10
AST 21 U/L (14-36) 09/10/23 04:10
ALT < 10 U/L (0-35) 09/10/23 04:10
Alkaline Phosphatase 135 U/L (38-126) H 09/10/23 04:10
Vital Signs and I&O:
Vital Signs
Temp Pulse Resp BP Pulse Ox
97.5 F 107 13 117/52 97
09/10/23 07:10 09/10/23 06:00 09/10/23 06:00 09/10/23 06:00 09/10/23 04:00
I&O
09/09/23 09/10/23 09/11/23
06:59 06:59 06:59
Intake Total 480 / 480 1920 / 1920
Output Total 100 / 100
Balance 480 / 480 1820 / 1820
Physical Exam
Physical Exam
HEENT: Other (pale)
Cardiology: Normal Sinus Rhythm
GI: Other (soft, tender, areas that are firm over the left abdomen. ostomy in place in the RLQ with bandages over wound)
Neuro: Other (more alert today)
--- NOTE | 2023-09-10 09:54 | W.PN.HOSP.TC ---
Today's Communication/Plan
-
CT scan per GI service
Assessment / Plan
Assessment / Plan
Gen-AAOx3, NAD, chronically ill
HEENT-NC, AT, anicteric, clear oral mm
Neck-supple
CV-reg, no M, +S1/S2
Lungs-clear B/L
Abd-soft, NT, ND
Ext-no edema
Musculoskeletal-no cyanosis, clubbing
Skin-warm and dry
Neuro-grossly non-focal
Psych-calm, cooperative
Failure to thrive -due to severe malnutrition, dysphagia, etc. At this point in time her only option is either a feeding tube or hospice if she wishes for nonaggressive means of treatment. Patient not interested in hospice.
No evidence of adrenal insufficiency. TSH 1.8.
Plan for PEG tube placement this hospitalization. GI following. Dobbhoff tube placed, awaiting confirmation.
Hypovolemic hyponatremia -sodium improving, 133.
Hypokalemia -3.2. Received IV KCl this morning, check magnesium.
Hypoglycemia - likely due to malnutrition. Glucose improved.
Asymptomatic pyuria -urine culture sent. Hold antibiotics for now. No signs of infection systemically.
Chronic microcytic anemia -hemoglobin better than last admission. Suspect chronic inflammatory anemia. Iron panel in July did not reveal iron deficiency. B12 and folic acid levels normal.
Advanced RA
Functional quadriplegia
History of C. difficile colitis -completed treatment. Reason for metronidazole? I tried to call [facility] nursing call but unable to connect with anyone.
Essential hypertension -stable.
Hyperlipidemia
GERD
Depression
Chronic heart failure unknown type
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
Full code
Dispo -back to long-term when medically stable.
Anticipated Discharge: > 48 hours
Subjective/Interval History
-
Date of Service: September 10, 2023
Patient seen and examined. Feeling cold.
Objective Data
-
Labs:
Laboratory Results
09/10/23
04:10
WBC 8.2
Hgb 10.0 L
Hct 30.7 L
Plt Count 245
Sodium 133 L
Potassium 3.2 L
Chloride 109 H
Carbon Dioxide 18 L
BUN 8
Creatinine 0.2 L
Glucose 103 H
Calcium 8.6
Total Bilirubin 0.3
AST 21
ALT < 10
Alkaline Phosphatase 135 H
Vital Signs:
Vital Signs
Temp Pulse Resp BP Pulse Ox
97.5 F 107 13 117/52 97
09/10/23 07:10 09/10/23 06:00 09/10/23 06:00 09/10/23 06:00 09/10/23 04:00
I&O
09/09/23 09/10/23 09/11/23
06:59 06:59 06:59
Intake Total 480 / 480 1920 / 1920
Output Total 100 / 100
Balance 480 / 480 1820 / 1820
Review of Systems
-
History Source: Patient
All other systems: Reviewed and negative
[2023-09-10 09:59] LABS: GGTP 35 U/L (12-43); Magnesium 1.4 mg/dl (1.6-2.3)
[2023-09-10 10:32] LABS: Prealbumin (Transthyretin) 5.4 mg/dl (17.6-36.0)
[2023-09-10 12:02] LABS: Glucose - Point of Care 109 mg/dl (70-99)
[2023-09-10] MEDS: DESENEX/MITRAZOL/ZEASORB 1 APPLIC TOPICAL ×2 (12:07→20:07)
[2023-09-10] MEDS: OMNIPAQUE 50 ML PO (12:07)
[2023-09-10] MEDS: HYDROPHOR 1 APPLIC TOPICAL (12:07)
[2023-09-10] MEDS: MAGNESIUM SULFATE 50 IV (13:50)
[2023-09-10] MEDS: D5/0.9% SODIUM CHLORIDE 1000 IV (13:56)
--- NOTE | 2023-09-10 16:33 | PTCARENOTE ---
Patient is talkative today, oriented to person, place and year. Dobhoff placed in right nare for CT scan prep and nutrition. CT Scan completed. Patient has been NPO today. Refusing turns and heels elevation.
--- NOTE | 2023-09-10 17:05 | CM ---
Patient from [facility] with Hx Functional quadriplegia, ileostomy with Dx Failure to thrive -due to severe malnutrition, dysphagia. ST recommends NPO. Manager Cardiovascular Consult re; tube feeds. Dobbhoff tube placed, Plan for PEG tube
placement. Room air. Receiving IVF. Seen by wound care nurse. PT; No skilled PT needed.
Spoke with [facility]; the patient resides there in LTC and is on an CA bed hold. The phone for report to 2nd floor [phone], fax [phone].
Spoke with Edwin, Nurse, [facility]; the patient was alert with reports of recent confusion. She stays mostly in bed as she sometimes refuses to get OOB. When getting OOB a mechanical lift is used. The patient has not been getting PT/OT however is
in a 'walking program' for activity.
Per Edwin, the patient's family does not visit. Her sister Lu Harmon (ph [phone]) sometimes calls. Daughter Ty's ph [phone].
Pharmacy - [facility].
Plan confirm return to [facility] with patient/family prior to d/c.
Plan return to [facility] when medically ready.
[2023-09-10] MEDS: DICLOFENAC 1% TOPICAL GEL TOPICAL ×2 (17:15→20:07)
[2023-09-10 18:01] LABS: Glucose - Point of Care 93 mg/dl (70-99)
[2023-09-10] MEDS: GENTAMICIN 0.1% CREAM 1 APPLIC TOPICAL (20:07)
[2023-09-10 23:49] LABS: Glucose - Point of Care 106 mg/dl (70-99)
[2023-09-11] VITALS (16 sets, daily range): BP systolic 87–115; BP diastolic 47–69; BMI 26.3
[2023-09-11] MEDS: ZOFRAN 4 MG IV (01:48)
[2023-09-11 03:58] LABS: % Basophils 0.3 % (0-2); % Immature Granulocytes 1.1 % (0-0.5); % Lymphocytes 8.4 % (20.5-51.1); % Monocytes 4.9 % (1.7-9.3); % Neutrophils 85.3 % (42.2-75.2); Absolute Immature Granulocytes 0.1 10^3/uL (0-0.05); Absolute Lymphocytes 0.8 10^3/uL (1.2-3.4); Absolute Monocytes 0.5 10^3/uL (0.1-0.6); Absolute Neutrophils 7.8 10^3/uL (1.4-6.5); Hematocrit 29.8 % (37.0-47.0); Hemoglobin 10.3 g/dL (12.0-16.0); Mean Corp Hgb Conc. 34.6 g/dL (33.0-37.0); Mean Corpuscular Hgb 24.8 pg (27.0-31.0); Mean Corpuscular Volume 71.6 fL (81.0-99.0); Mean Platelet Volume 9.5 fL (7.4-10.4); Nucleated Red Blood Cells % 0.3 %; Platelet Count 278 10^3/uL (130-400); Red Blood Cell Count 4.16 10^6/uL (4.20-5.40); Red Cell Dist. Width 17.9 % (11.5-14.5); White Blood Cell Count 9.2 10^3/uL (4.8-10.8)
[2023-09-11 04:33] LABS: ALT (SGPT) 38 U/L (0-35); AST (SGOT) 298 U/L (14-36); Albumin 1.8 g/dl (3.5-5.0); Alkaline Phosphatase 145 U/L (38-126); Blood Urea Nitrogen 5 mg/dl (7-17); Calcium 8.8 mg/dl (8.4-10.2); Carbon Dioxide 15 mmol/L (22-30); Chloride 111 mmol/L (98-107); Estimated Creatinine Clearance 73 ml/min; Glucose 78 mg/dl (70-99); Magnesium 1.9 mg/dl (1.6-2.3); Phosphorus 1.9 mg/dl (2.5-4.5); Potassium 3.2 mmol/L (3.5-5.1); Sodium 131 mmol/L (135-145); Total Bilirubin 0.6 mg/dl (0.2-1.3); Total Protein 4.6 g/dl (6.3-8.2); eGFR > 60.00
--- NOTE | 2023-09-11 04:43 | PTCARENOTE ---
Addendum entered by Ryley Cox RN 09/11/23 05:33:
2.5mg IV Lopressor x1 administer per MAY. HR 90s to low 100s. Pt c/o Abd pain to her wounds. IV Tylenol x1 given. Pt resting in bed in no apparent distress, respirations even and unlabored. Call butler within reach. Pt states she does not want to be
bothered the rest of the morning. Pt made aware we cannot promise that. Plan for cardiology consult today.
Original Note:
Patient's heart rate was noted to be sustaining 120-130 after oral care and repositioning. BP also noted to be trending down. FUSE ASSEMBLER Svitlana made aware and ordered EKG. EKG done and showed Afib RVR and critical prolonged QTc. This was brought to hot air furnace installer and repairer
attention. Pt had previously received IV zofran for nausea/upset stomach. Zofran discontinued. Morning labs are resulted and showing low potassium. Plan to replete potassium.
Patient offers no complaints. Denies any sob, cp or palpitations at this time.
[2023-09-11] MEDS: KLOR-CON 40 MEQ TUBE (04:52)
--- NOTE | 2023-09-11 04:52 | W.PN.UPDATE ---
Update Note
Progress Note Update
Patient is tachycardia with hr 128, BP 107/68 denied chest pain or SOB.
-EKG shows a-fib with RVR, and prolonged QTC 629. Will D/ C Zofran, cardiology consult was placed, and one time of IV Lopressor 2.5 mg.
- K level 3.2 this am repleted as needed.
[2023-09-11] MEDS: OFIRMEV 100 IV (05:16)
[2023-09-11] MEDS: D5/0.9% SODIUM CHLORIDE 1000 IV (05:16)
[2023-09-11] MEDS: LOPRESSOR 2.5 MG IV (05:17)
[2023-09-11] MEDS: DESENEX/MITRAZOL/ZEASORB 1 APPLIC TOPICAL ×2 (08:06→20:17)
[2023-09-11] MEDS: GENTAMICIN 0.1% CREAM 1 APPLIC TOPICAL (08:07)
[2023-09-11] MEDS: DICLOFENAC 1% TOPICAL GEL TOPICAL (08:07)
[2023-09-11] MEDS: HYDROPHOR 1 APPLIC TOPICAL (08:08)
[2023-09-11] MEDS: HEPARIN 5000 UNITS SC ×2 (08:08→20:18)
--- NOTE | 2023-09-11 08:34 | W.PN.HOSP.TC ---
Addendum entered and electronically signed by Rosendo Alaniz DO 09/11/23 13:54:
Updated patient's daughter Ty on the phone. All questions answered.
Original Note:
Today's Communication/Plan
-
Add KCl elixir daily
Tube feeds
Cardiology consult
Assessment / Plan
Assessment / Plan
Gen-AAOx3, NAD, chronically ill
HEENT-NC, AT, anicteric, clear oral mm
Neck-supple
CV-reg, no M, +S1/S2
Lungs-clear B/L
Abd-soft, NT, ND
Ext-no edema
Musculoskeletal-no cyanosis, clubbing
Skin-warm and dry
Neuro-grossly non-focal
Psych-calm, cooperative
Rapid atrial fibrillation -new diagnosis. Cardiology consulted. TSH 1.8. Given a dose of IV metoprolol early this morning, but currently hypotensive.
Failure to thrive -due to severe malnutrition, dysphagia, etc. At this point in time her only option is either a feeding tube or hospice if she wishes for nonaggressive means of treatment. Patient not interested in hospice.
No evidence of adrenal insufficiency. TSH 1.8.
Plan for PEG tube placement this hospitalization. GI following. Dobbhoff tube placed, tube feeds to begin per GI service. I spoke with Dr. Li, she believes that a PEG tube will not be straightforward procedure for her and wants to try her on
tube feeds via DHT to make sure she tolerates before we move forward with PEG tube.
Hypovolemic hyponatremia -sodium 131.
Hypokalemia -3.2 today. Magnesium 1.9. KCl elixir daily.
Hypoglycemia - likely due to malnutrition. Glucose improved.
Asymptomatic pyuria -urine culture sent. Hold antibiotics for now. No signs of infection systemically. Urine culture shows mixed tova likely contamination.
Chronic microcytic anemia -hemoglobin better than last admission. Suspect chronic inflammatory anemia. Iron panel in July did not reveal iron deficiency. B12 and folic acid levels normal.
Advanced RA
Functional quadriplegia
History of C. difficile colitis -completed treatment. Reason for metronidazole? I tried to call [facility] nursing call but unable to connect with anyone.
Essential hypertension -currently hypotensive. Nursing is checking blood pressures and her legs for unclear reasons. Will try to get an arm blood pressure reading today.
Hyperlipidemia
GERD
Depression
Chronic heart failure unknown type
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
Full code
Dispo -back to [facility] when medically stable.
Anticipated Discharge: > 48 hours
Subjective/Interval History
-
Date of Service: September 11, 2023
Patient seen and examined. No complaints.
Objective Data
-
Labs:
Laboratory Results
09/11/23
03:43
WBC 9.2
Hgb 10.3 L
Hct 29.8 L
Plt Count 278
Sodium 131 L
Potassium 3.2 L
Chloride 111 H
Carbon Dioxide 15 L
BUN 5 L
Creatinine 0.2 L
Glucose 78
Calcium 8.8
Total Bilirubin 0.6
AST 298 H
ALT 38 H
Alkaline Phosphatase 145 H
Vital Signs:
Vital Signs
Temp Pulse Resp BP Pulse Ox
98.3 F 101 18 87/54 98
09/11/23 03:44 09/11/23 06:00 09/11/23 06:00 09/11/23 06:00 09/11/23 06:00
I&O
09/10/23 09/11/23 09/12/23
06:59 06:59 06:59
Intake Total 1919 / 1920 1939 / 1939
Output Total 100 / 100 275 / 275
Balance 1820 / 1820 1665 / 1665
Review of Systems
-
History Source: Patient
All other systems: Reviewed and negative
--- NOTE | 2023-09-11 09:01 | CON.CAR ---
Addendum entered and electronically signed by Ken Burleson MD 09/11/23 11:05:
I saw and examined the patient.
The CARD GAME OPERATOR's note was reviewed and I agree with the note.
Comment: 73 y/o female with hypertension, CHF (per chart, details unknown), HLD, GERD, bowel resection, RA, anemia who is here from [place] with poor PO intake and dysphagia. She had what appears to be an episode of AF, however, now back in SR. Her BP
is better and should continue with metoprolol as long as BP will tolerate. Eliquis should be started when OK from a surgical perspective for elevated CHADSVASC.
- back in SR
- restart Metoprolol
- Eliquis 5 mg bid when OK from surgical perspective
- TTE pending
We will sign off pending TTE results, please call with questions/concerns.
Original Note:
Consultation
Consultation Request
Date/Time Consultation Requested: 09/11/23 0511
Date/Time Consultation Performed: 09/11/23 0900
Requesting Provider: Svitlana Wilcox NP
Performing Provider: Karen MTZ for Dr. Burleson
Reason for Consultation: AFIB
Medical History
-
Chief Complaint: poor intake, dysphagia
History of Present Illness:
73 y/o female with hypertension, CHF (per chart, details unknown), HLD, GERD, bowel resection, RA, anemia who is here from [place] with poor PO intake and dysphagia. She currently has a DHT to help with nutrition. We are consulted since AFIB was noted
overnight on monitor. She is now back in SR. Rates in AF were in the 120's. She was given IV metoprolol 2.5 mg. She was not symptomatic.
Past Medical History
Past Medical History: CHF, GERD, HTN, Hypercholesterolemia and Other (RA, anemia)
Social History
Living: [facility]
Family History
Family History: Reviewed & Not Pertinent
Allergies / Home Medications
Allergy/AdvReac Type Severity Reaction Status Date / Time
propoxyphene [From Darvon] Allergy Unknown Verified 09/08/23 23:12
wheat Allergy Unknown Verified 09/08/23 23:12
�Medication �Instructions �Recorded �Confirmed �Type
Tacrolimus 0.1% 1 applic topical DAILY abd wounds 07/16/23 09/08/23 History
acetaminophen 325 mg tablet 650 mg PO Q6HPRN PRN mild 07/16/23 09/08/23 History
pain/temp>100.4
diclofenac sodium 1 % topical gel 2 - 4 g topical BID lower back 07/16/23 09/08/23 History
docusate sodium 100 mg capsule 100 mg PO DAILY PRN constipation 07/16/23 09/08/23 History
duloxetine 60 mg capsule,delayed 60 mg PO DAILY Mental 07/16/23 09/08/23 History
release Health/Anxiety
folic acid 1 mg tablet 1 mg PO DAILY Supplement 07/16/23 09/08/23 History
gentamicin 0.1 % topical cream 1 applic topical DAILY abd wounds 07/16/23 09/08/23 History
hydrocortisone 1 % topical cream 1 applic topical [id number] PRN 07/16/23 09/08/23 History
itching on bilateral LEs
methotrexate sodium 2.5 mg tablet 7.5 mg PO .SEE BELOW 07/16/23 09/08/23 History
Autoimmune Disorder
duloxetine 30 mg capsule,delayed 30 mg PO DAILY Mental 07/28/23 09/08/23 History
release Health/Anxiety
colestipol 5 gram oral packet 2 g PO DAILY High Cholesterol 08/13/23 09/08/23 History
metoprolol tartrate 25 mg tablet 25 mg PO BID #60 tabs 08/20/23 09/08/23 Rx
pantoprazole 40 mg tablet,delayed 40 mg PO DAILY #30 tabs 08/20/23 09/08/23 Rx
release
Acidophilus 1 cap PO DAILY Supplement 09/08/23 09/08/23 History
acetaminophen 500 mg tablet 500 mg PO DAILY Pain 09/08/23 09/08/23 History
(Tylenol Extra Strength)
amlodipine 5 mg tablet 5 mg PO DAILY Blood Pressure 09/08/23 09/08/23 History
hydroxychloroquine 200 mg tablet 400 mg PO BID Autoimmune Disorder 09/08/23 09/08/23 History
magnesium hydroxide 400 mg/5 mL 30 ml PO DAILY PRN if no BM in 3 09/08/23 09/08/23 History
oral suspension (Milk of Magnesia) days
melatonin 3 mg tablet 3 mg PO HS Sleep 09/08/23 09/08/23 History
melatonin 5 mg capsule 5 mg PO HS INSOMNIA 09/08/23 09/08/23 History
methocarbamol 500 mg tablet 500 mg PO [id number] PRN muscle spasms 09/08/23 09/08/23 History
metronidazole 500 mg tablet 500 mg PO Q6H Infection 09/08/23 09/08/23 History
olanzapine 2.5 mg tablet 2.5 mg PO DAILY Mental 09/08/23 09/08/23 History
Health/Anxiety
ondansetron HCl 4 mg/5 mL oral 4 mg PO Q8H PRN nausea/vomiting 09/08/23 09/08/23 History
solution
torsemide 5 mg tablet 5 mg PO DAILY Fluid 09/08/23 09/08/23 History
Retention/Swelling
Review of Systems
-
History Source: Patient
All other systems: Negative unless noted
Constitutional: Weight Loss and Other (poor intake, dysphagia)
Physical Exam
Vital Signs
Temp Pulse Resp BP Pulse Ox
98.3 F 101 18 87/54 98
09/11/23 03:44 09/11/23 06:00 09/11/23 06:00 09/11/23 06:00 09/11/23 06:00
Lab Results
09/11/23 03:43
09/11/23 03:43
Physical Exam
General: Well Developed and No Apparent Distress
HEENT: Normocephalic and Anicteric
Respiratory: Clear and Non Labored Respirations
Cardiac: Regular Rhythm
Skin: Warm and Dry
Neuro: Awake, Alert and Oriented
Psych: Calm
Impression / Plan
-
Dysphagia, poor PO intake:
-severe in that she is requiring tube feedings for nutrition
-GI following, now with DHT- plan is for PEG if TF's tolerated
AFIB with RVR, paroxysmal:
-new diagnosis
-now back in SR, repeat EKG
-BP on low end currently. On metoprolol as OP- Resume when tolerated.
-[id number] score is 5 for age, female, HTN, DM - recommend starting Eliquis when not planning for any more procedures
-TSH WNL
-check echo
HTN:
-BP's on low end
-amlodipine and metoprolol held with low BP's- resume BB first when tolerated as above
CHF, per chart, details unknown:
-on torsemide as OP
-not volume overloaded to assessment
-monitor
Data Reviewed
-
EKG: Tracing Personally Visualized and interpreted (AFIB [address] Scan: Report Reviewed by me (abd/pelv CT 09/10/23: Improved colitis of the descending colon compared to the CT abdomen/pelvis from 07/28/2023. No definite new acute inflammatory process in the abdomen or pelvis within the limitations noted)
Medical Tests (Nuc Med, Echo etc): Other (echo ordered)
Labs: Labs Reviewed by me
--- NOTE | 2023-09-11 10:14 | PTCARENOTE ---
Assumed care of pt from night RN, pt drowsy but rousable. DHT intact to R radha, pt to start TF today. Repositioned in bed as pt allows, refuses at times. Reinforced need to turn to prevent skin breakdown, verbalizes understanding. Colostomy with
minimal output. Dressings to abdominal wounds CDI. Will monitor through shift.
--- NOTE | 2023-09-11 10:43 | W.PN.GI.CBS2 ---
Today's Communication / Plan
-
-- Start tube feeds via Dobbhoff
-- Monitor for refeeding syndrome
Assessment / Plan
-
73 year old female with a past medical history of RA, HTN, hyperlipidemia, dysphagia on minced diet who [place] the hospital [place] for dysphagia, decreased oral intake and extreme lethargy found to have hypoglycemia of 49 on arrival.
We saw her when she was here during her hospitalization from August 14 through for dysphagia and nausea. At that time she we saw her as she was having sensation of food 'getting stuck'. Associated with coughing and choking and bringing food and
pills back up. She had a video esophagram on 08/14/2023 that showed moderately torturous esophagus with no evidence of stricture or obstruction. There were multiple tertiary contractions. She had an EGD on 08/15/2023 that was torturous but no
evidence of stricture and otherwise normal. There was a collection of mucus in the proximal esophagus consistent with dysmotility. No evidence of esophageal candidiasis. The patient was was tolerating a dysphagia diet level 5 minced and moist
with thin liquids, aspiration precautions. We also recommended mirtazapine. Appears that that was not started. She was also continued on pantoprazole 40 mg daily. The patient was brought in to the hospital for severe lethargy. She states that
she was not tolerating her diet at the alf. She states the only food that she was able to tolerate were things like 'soups'. She states she cannot tolerate the minced diet. We are asked to evaluate for PEG tube placement. Patient states
that she knows what a PEG tube is. She states her neighbor had one. She states that she does not want to go on hospice. She is agreeable to a PEG tube at this time. We did discuss that this does not preclude her from eating for pleasure foods
that are within her capability/safe range from a dysphagia standpoint. The patient states to me that she is able to tolerate things like soup. Phone call was placed to patient's daughter Ty who will be coming to the hospital today as well.
Impression:
Dysphagia-> concerns for motility disorder (evidenced by tertiary contractions on esophagram, EGD with collection of mucus in the proximal esophagus consistent with dysmotility)
Protein calorie malnutrition with inability to meet daily needs
Weight loss-> documented 15 pounds in less than 8-weeks
Hypoglycemia secondary to decreased oral intake
RA-> on MTX/Plaquenil
09/10/23 CT scan with IV and oral contrast shows improved colitis of the descending colon compared to June. No new inflammatory process, bilateral pleural effusions otherwise chronic findings with right lower quadrant ostomy, previous transverse
colon resection stable lower anterior abdominal wall hernia containing bowel loops
09/10/23
-Dobbhoff placed today in order to do oral contrast CT scan - checking xray to confirm position
-Nutrition consultation for tube feeds
-Added prealbumin and GGT to labs
-Potassium repletion via primary team
-Zofran as needed nausea
09/11/2023
-- Reviewed CT scan which shows no new findings
-- Start tube feeds today
per dietary consult: TF recs for [address]355 [employer]: initiate Osmolite 1.2 at 20 ml/hr, increase 10 ml/hr q8hr to goal rate of 65 ml/hr to provide 1430 ml total volume, 1716 kcal (102% needs), 79gm protein (99% needs), 1173 ml free water. Automatic flush 25
ml/hr for 1773 ml total free water or per MD.
Request replete and monitor k+, mg, phos as needed as TF progresses.
-- If patient tolerates the tube feeds will place PEG tube on Friday
Subjective
Subjective
Date of Service: September 11, 2023
No significant overnight events, mild nausea times
Objective
Data Reviewed
Laboratory Data:
Laboratory Results
09/11/23 03:43
09/11/23 03:43
Laboratory Results
Phosphorus 1.9 mg/dl (2.5-4.5) L 09/11/23 03:43
Magnesium 1.9 mg/dl (1.6-2.3) 09/11/23 03:43
Total Bilirubin 0.6 mg/dl (0.2-1.3) 09/11/23 03:43
AST 298 U/L (14-36) H 09/11/23 03:43
ALT 38 U/L (0-35) H 09/11/23 03:43
Alkaline Phosphatase 145 U/L (38-126) H 09/11/23 03:43
Vital Signs and I&O:
Vital Signs
Temp Pulse Resp BP Pulse Ox
97.8 F 101 18 87/54 98
09/11/23 07:15 09/11/23 06:00 09/11/23 06:00 09/11/23 06:00 09/11/23 08:00
I&O
09/10/23 09/11/23 09/12/23
06:59 06:59 06:59
Intake Total 1919 / 1919
Output Total 100 / 100 275 / 275
Balance 1820 / 1820 1665 / 1665
Physical Exam
Physical Exam
HEENT: Anicteric and Other (Dobbhoff in place)
GI: Soft and Tender
[2023-09-11] MEDS: KCL ELIXIR 40 MEQ TUBE (11:06)
--- NOTE | 2023-09-11 11:22 | PTCARENOTE ---
Initiated TF as ordered at 1100, Osmolite 1.2 infusing at 20ml/hr with 25ml/hr water flush. Goal rate = 65ml. Will increase as tolerated and monitor for signs of intolerance through shift.
[2023-09-11 12:20] LABS: Glucose - Point of Care 80 mg/dl (70-99)
[2023-09-11] MEDS: NSS 500 IV (14:59)
[2023-09-11] MEDS: COMPAZINE 5 MG IV ×2 (14:59→21:17)
[2023-09-11] MEDS: LOPRESSOR 25 MG TUBE ×2 (15:00→20:18)
[2023-09-11] MEDS: SODIUM PHOSPHATE 255 MEQ IV (16:05)
--- NOTE | 2023-09-11 16:32 | PTCARENOTE ---
Pt seems to be tolerating TF so far, still infusing at 20ml/hr. Did have some mild c/o of nausea earlier, prn Compazine administered with + effect noted.
[2023-09-11 18:36] LABS: Glucose - Point of Care 76 mg/dl (70-99)
[2023-09-11] MEDS: DICLOFENAC 1% TOPICAL GEL 4 GRAM TOPICAL (20:17)
--- NOTE | 2023-09-11 21:53 | PTCARENOTE ---
ax3 sinus- tolerating tube feedings- colostomy intact- incontinent of urine
[2023-09-12] VITALS (13 sets, daily range): BP systolic 89–106; BP diastolic 41–58; BMI 26.9
[2023-09-12 01:21] LABS: Glucose - Point of Care 116 mg/dl (70-99)
[2023-09-12 05:55] LABS: % Basophils 0.1 % (0-2); % Lymphocytes 13.6 % (20.5-51.1); % Monocytes 6.7 % (1.7-9.3); % Neutrophils 78.6 % (42.2-75.2); Absolute Immature Granulocytes 0.1 10^3/uL (0-0.05); Absolute Monocytes 0.5 10^3/uL (0.1-0.6); Hematocrit 27.6 % (37.0-47.0); Hemoglobin 9.2 g/dL (12.0-16.0); Mean Corp Hgb Conc. 33.3 g/dL (33.0-37.0); Mean Corpuscular Hgb 24.7 pg (27.0-31.0); Nucleated Red Blood Cells % 0 %; Platelet Count 236 10^3/uL (130-400); Red Blood Cell Count 3.73 10^6/uL (4.20-5.40); Red Cell Dist. Width 18.6 % (11.5-14.5); White Blood Cell Count 7.6 10^3/uL (4.8-10.8)
[2023-09-12 06:21] LABS: ALT (SGPT) 42 U/L (0-35); AST (SGOT) 139 U/L (14-36); Albumin 1.6 g/dl (3.5-5.0); Alkaline Phosphatase 148 U/L (38-126); Blood Urea Nitrogen 7 mg/dl (7-17); Calcium 8.4 mg/dl (8.4-10.2); Carbon Dioxide 16 mmol/L (22-30); Chloride 111 mmol/L (98-107); Estimated Creatinine Clearance 73 ml/min; Glucose 86 mg/dl (70-99); Magnesium 1.8 mg/dl (1.6-2.3); Phosphorus 2.8 mg/dl (2.5-4.5); Potassium 4.9 mmol/L (3.5-5.1); Sodium 128 mmol/L (135-145); Total Bilirubin 0.4 mg/dl (0.2-1.3); Total Protein 4.1 g/dl (6.3-8.2); eGFR > 60.00
[2023-09-12] MEDS: LOPRESSOR 25 MG TUBE ×2 (07:27→19:20)
[2023-09-12] MEDS: HEPARIN 5000 UNITS SC ×2 (07:28→19:20)
[2023-09-12] MEDS: DICLOFENAC 1% TOPICAL GEL 2 GRAM TOPICAL (07:28)
[2023-09-12] MEDS: DESENEX/MITRAZOL/ZEASORB 1 APPLIC TOPICAL ×2 (07:28→19:20)
[2023-09-12] MEDS: KCL ELIXIR 40 MEQ TUBE (07:28)
[2023-09-12] MEDS: HYDROPHOR 1 APPLIC TOPICAL (07:30)
[2023-09-12] MEDS: GENTAMICIN 0.1% CREAM 1 APPLIC TOPICAL (07:31)
--- NOTE | 2023-09-12 08:11 | W.PN.HOSP.TC ---
Today's Communication/Plan
-
Stop potassium chloride
Serum osmolality, urine osmolality, urine sodium
Recheck labs in the morning
Assessment / Plan
Assessment / Plan
Gen-AAOx3, NAD, chronically ill
HEENT-NC, AT, anicteric, clear oral mm
Neck-supple
CV-reg, no M, +S1/S2
Lungs-clear B/L
Abd-soft, NT, ND
Ext-no edema
Musculoskeletal-no cyanosis, clubbing
Skin-warm and dry
Neuro-grossly non-focal
Psych-calm, cooperative
Rapid atrial fibrillation -new diagnosis. Cardiology consulted. Converted back to sinus rhythm last night. Rates are currently controlled on metoprolol 25 mg twice daily. Needs to start Eliquis next week after PEG tube placement.
Echocardiogram shows LVEF 60 to 65%, mild LVH, mild AR. Dense mitral annular calcification with moderate MS.
Failure to thrive -due to severe malnutrition, dysphagia, etc. At this point in time her only option is either a feeding tube or hospice if she wishes for nonaggressive means of treatment. Patient not interested in hospice.
No evidence of adrenal insufficiency. TSH 1.8.
Plan for PEG tube placement this hospitalization. GI following. Dobbhoff tube placed, tube feeds to begin per GI service. I spoke with Dr. Li, she believes that a PEG tube will not be straightforward procedure for her and wants to try her on
tube feeds via DHT to make sure she tolerates before we move forward with PEG tube next week.
Chronic hyponatremia -sodium 128 today. Check serum osmolality, urine osmolality, urine sodium.
Hypokalemia - potassium 4.9 today, will discontinue further KCl.
Hypoglycemia - likely due to malnutrition. Glucose improved.
Asymptomatic pyuria -urine culture sent. Hold antibiotics for now. No signs of infection systemically. Urine culture shows mixed tova likely contamination.
Chronic microcytic anemia -hemoglobin down slightly to 9.2, will monitor. No evidence of bleeding. Suspect chronic inflammatory anemia. Iron panel in July did not reveal iron deficiency. B12 and folic acid levels normal.
Advanced RA
Functional quadriplegia
History of C. difficile colitis -completed treatment. Reason for metronidazole? I tried to call [facility] nursing call but unable to connect with anyone.
Essential hypertension -blood pressure readings are better when using her arm.
Hyperlipidemia
GERD
Depression
Chronic heart failure unknown type
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
Full code
Dispo -back to [facility] when medically stable.
Anticipated Discharge: > 48 hours
Subjective/Interval History
-
Date of Service: September 12, 2023
Patient seen and examined. Complaining of lower back pain.
Objective Data
-
Labs:
Laboratory Results
09/12/23
05:34
WBC 7.6
Hgb 9.2 L
Hct 27.6 L
Plt Count 236
Sodium 128 L
Potassium 4.9 D
Chloride 111 H
Carbon Dioxide 16 L
BUN 7
Creatinine 0.2 L
Glucose 86
Calcium 8.4
Total Bilirubin 0.4
AST 139 H
ALT 42 H
Alkaline Phosphatase 148 H
Vital Signs:
Vital Signs
Temp Pulse Resp BP Pulse Ox
97.6 F 84 11 102/44 85
09/12/23 04:15 09/12/23 07:27 09/12/23 06:00 09/12/23 07:27 09/12/23 04:01
I&O
09/11/23 09/12/23 09/13/23
06:59 06:59 06:59
Intake Total 1939 / 1939 1914 / 1914
Output Total 275 / 275 850 / 850 100 / 100
Balance 1665 / 1665 1065 / 1065 -100 / -100
Review of Systems
-
History Source: Patient
All other systems: Reviewed and negative
[2023-09-12 08:48] LABS: Osmolality Serum 271 mOsm/kg (275-300)
[2023-09-12] MEDS: COMPAZINE 5 MG IV (09:42)
--- NOTE | 2023-09-12 09:53 | W.PN.CD ---
Today's Communication / Plan
-
start Eliquis 5mg po BID per PEG when in place and ok post procedure.
Will sign off
Impression / Plan
-
Dysphagia, poor PO intake:
-severe in that she is requiring tube feedings for nutrition
-GI following, now with DHT- plan is for PEG if TF's tolerated
-possibly Friday?
AFIB with RVR, paroxysmal:
-new diagnosis
-now back in SR, repeat EKG
-BP on low end currently. On metoprolol
-[id number] score is 5 for age, female, HTN, DM - recommend starting Eliquis (5mg po bid )when not planning for any more procedures
-TSH WNL
CHF, per chart, details unknown:
-on torsemide as OP
-with hyponatremia, acidosis, will not add additional GDMT at this time.
-not volume overloaded to assessment
-monitor
HTN; chronic
TTE 09/11/23:
CONCLUSIONS
Small LV with normal systolic function and no regional wall motion abnormality.
LVEF is 60 to 65% by visual estimation.
Mild concentric LVH.
Normal right ventricular size and function.
Dense mitral annular calcification with moderate mitral stenosis. Peak/mean
gradients across the mitral valve are 13/6 mmHg.
Mild aortic regurgitation.
Estimated pulmonary artery pressure of 41 mmHg. Assuming a right atrial
pressure of 3 mmHg.
No prior study available for comparison.
Subjective:
she is cold but otherwise without complaint.
Physical Exam
Vital Signs/Labs
Vital Signs
Temp Pulse Resp BP Pulse Ox
97.1 F 84 11 102/44 98
09/12/23 07:23 09/12/23 07:27 09/12/23 06:00 09/12/23 07:27 09/12/23 09:16
09/11/23 09/12/2309/12/24
06:59 06:59 06:59
Actual Weight 71.8 kg 73.2 kg
09/12/23 05:34
09/12/23 05:34
Magnesium 1.8 mg/dl (1.6-2.3) 09/12/23 05:34
TSH 1.80 uIU/ml (0.47-4.68) 09/09/23 08:02
Physical Exam
Constitutional: No acute distress
Cardiovascular: Rhythm & rate is regular, Pedal edema is absent and JVD pressure is normal
Respiratory: Respiratory effort normal, Lungs clear to auscul., Wheeze Absent, Crackles Absent and Rhonchi Absent
Neuro/Psych: AO x 3
Data Reviewed
-
Date of Service: September 12, 2023
EKG: Other (sinus)
--- NOTE | 2023-09-12 10:15 | W.PN.GI.CBS2 ---
Addendum entered and electronically signed by Benja Oneill MD 09/12/23 19:26:
I saw and examined the patient.
The LOGISTICS PLANNING MANAGER's note was reviewed and I agree with the note.
Tolerating tube feeds. Patient is agreeable for PEG on Friday.
Original Note:
Today's Communication / Plan
-
tube feeds up to 40ml and tolerating to goal to 65ml/hr with good output in ostomy
for peg Friday if able to place with large abd and hx several abdominal surgeries in past
LFT's with trending down GGT normal at 35
K, Mag and phos normal -- cont to watch
Assessment / Plan
-
73 year old female with a past medical history of RA, HTN, hyperlipidemia, partial colectomy with end transverse colostomy, dysphagia on minced diet who [facility], decreased oral intake and extreme
lethargy found to have hypoglycemia of 49 on arrival. She has had several admission with concern for motility disorder with several other GI eval in past. and now plan for peg 09/14.
EGD on 08/15/2023 that was torturous but no evidence of stricture and otherwise normal. There was a collection of mucus in the proximal esophagus consistent with dysmotility. No evidence of esophageal candidiasis.
Impression:
Dysphagia-> concerns for motility disorder (evidenced by tertiary contractions on esophagram, EGD with collection of mucus in the proximal esophagus consistent with dysmotility)
Protein calorie malnutrition with inability to meet daily needs
Weight loss-> documented 15 pounds in less than 8-weeks
Hypoglycemia secondary to decreased oral intake
RA-> on MTX/Plaquenil
LFT elevation
09/10/23 CT scan with IV and oral contrast shows improved colitis of the descending colon compared to June. No new inflammatory process, bilateral pleural effusions otherwise chronic findings with right lower quadrant ostomy, previous transverse
colon resection stable lower anterior abdominal wall hernia containing bowel loops
09/10/23
-Dobbhoff placed today in order to do oral contrast CT scan - checking xray to confirm position
-Nutrition consultation for tube feeds
-Added prealbumin and GGT to labs
-Potassium repletion via primary team
-Zofran as needed nausea
09/11/2023
-- Reviewed CT scan which shows no new findings
-- Start tube feeds today
per dietary consult: TF recs for [address]: initiate Osmolite 1.2 at 20 ml/hr, increase 10 ml/hr q8hr to goal rate of 65 ml/hr to provide 1430 ml total volume, 1716 kcal (102% needs), 79gm protein (99% needs), 1173 ml free water. Automatic flush 25
ml/hr for 1773 ml total free water or per MD.
Request replete and monitor k+, mg, phos as needed as TF progresses.
-- If patient tolerates the tube feeds will place PEG tube on Friday
09/11/22
tube feeds up to 40ml and tolerating to goal to 65ml/hr with good output in ostomy
for peg Friday if able to place with large abd and hx several abdominal surgeries in past
LFT's with trending down GGT normal at 35
K, Mag and phos normal -- cont to watch
Subjective
Subjective
Date of Service: September 12, 2023
09/11 brown stool on tube feeds at 40ml/hr c/o some back pain
Objective
Data Reviewed
Laboratory Data:
Laboratory Results
09/12/23 05:34
09/12/23 05:34
Laboratory Results
Phosphorus 2.8 mg/dl (2.5-4.5) 09/12/23 05:34
Magnesium 1.8 mg/dl (1.6-2.3) 09/12/23 05:34
Total Bilirubin 0.4 mg/dl (0.2-1.3) 09/12/23 05:34
AST 139 U/L (14-36) H 09/12/23 05:34
ALT 42 U/L (0-35) H 09/12/23 05:34
Alkaline Phosphatase 148 U/L (38-126) H 09/12/23 05:34
Vital Signs and I&O:
Vital Signs
Temp Pulse Resp BP Pulse Ox
97.1 F 84 11 102/44 98
09/12/23 07:23 09/12/23 07:27 09/12/23 06:00 09/12/23 07:27 09/12/23 09:16
I&O
09/11/23 09/12/23 09/13/23
06:59 06:59 06:59
Intake Total 1939 / 1941914 / 1914
Output Total 275 / 275 850 / 850 100 / 100
Balance 1665 / 1665 1065 / 1065 -100 / -100
Physical Exam
Physical Exam
HEENT: Anicteric and Moist mucous membranes
Cardiology: Normal Sinus Rhythm
Pulmonary: Clear
GI: Soft, Non Distended, Tender and Other (large abd scar, ostomy with brown stool)
Extremities: Edema and Other (atrophy of legs )
Neuro: Non Focal
--- NOTE | 2023-09-12 11:12 | CM ---
Patient from [facility] with Hx Functional quadriplegia, colostomy with Dx new Afib, Failure to thrive -due to severe malnutrition, dysphagia. Room air. Osmolite tube feeds via Dobbhoff tube. Plan PEG tube placement Mon 09/14.
Seen by wound care nurse- abdominal wound, wound care R proximal abdomen Q other day, R distal abdomen daily. PT; No skilled PT needed.
Received phone call from [facility]; clinical update provided as requested including wound care needs with need for air mattress. She will check back after PEG placement to see how the patient is doing. The phone for report to [facility]
floor [phone] x [phone], fax [phone].
Spoke with Ty Sutton, patient's daughter; she does not want her mother to return to [facility] due to poor care and is upset patient is so malnourished under their care. She is hoping patient can be closer to family in [facility]
[place] where she lives and patient's daughter Marian who lives in [facility]. Therefore the family is interested in SNFs near [place]. Daughter feels she will be able to visit patient over lunch hour to better observe her care. Discussed SNFs
near [place] and provided ratings. Suggested researching or touring SNFs over the weekend. Offered to send her SNF list and she agrees ---> sent to her email at [email or web address]. Daughter confirms patient has MA in place for LTC.
Plan follow up with daughter on Fri for SNF preferences and make referrals.
[2023-09-12] MEDS: TYLENOL ORAL SOLUTION 650 MG TUBE ×3 (11:52→23:10)
[2023-09-12 12:03] LABS: Glucose - Point of Care 108 mg/dl (70-99)
--- NOTE | 2023-09-12 15:05 | WOUNDNOTE ---
WOC RN NOTE: Patient visited to check on ostomy. On assessment ostomy intact, no leaking noted. Wound care recently completed by [facility]. Ostomy appliance at bedside if needed over the weekend.
[2023-09-12 17:14] LABS: Osmolality Urine 690 mOsm/kg (300-900)
[2023-09-12 17:22] LABS: Urine Sodium 43 mmol/L (30-90)
[2023-09-12 18:06] LABS: Glucose - Point of Care 101 mg/dl (70-99)
[2023-09-12] MEDS: DICLOFENAC 1% TOPICAL GEL TOPICAL (19:21)
--- NOTE | 2023-09-12 21:12 | PTCARENOTE ---
can not verify valididty of vitals from [phone] today 09/12/23
[2023-09-12 23:28] LABS: Glucose - Point of Care 134 mg/dl (70-99)
[2023-09-13] VITALS (13 sets, daily range): BP systolic 88–104; BP diastolic 49–64; BMI 27.2
[2023-09-13 05:18] LABS: % Basophils 0.3 % (0-2); % Immature Granulocytes 1.3 % (0-0.5); % Lymphocytes 17.1 % (20.5-51.1); % Monocytes 8.6 % (1.7-9.3); % Neutrophils 72.7 % (42.2-75.2); Absolute Immature Granulocytes 0.1 10^3/uL (0-0.05); Absolute Lymphocytes 1.1 10^3/uL (1.2-3.4); Absolute Monocytes 0.6 10^3/uL (0.1-0.6); Absolute Neutrophils 4.6 10^3/uL (1.4-6.5); Hematocrit 26.4 % (37.0-47.0); Hemoglobin 8.5 g/dL (12.0-16.0); Mean Corp Hgb Conc. 32.2 g/dL (33.0-37.0); Mean Corpuscular Hgb 24.6 pg (27.0-31.0); Mean Corpuscular Volume 76.3 fL (81.0-99.0); Mean Platelet Volume 9.8 fL (7.4-10.4); Nucleated Red Blood Cells % 0 %; Platelet Count 236 10^3/uL (130-400); Red Blood Cell Count 3.46 10^6/uL (4.20-5.40); Red Cell Dist. Width 18.5 % (11.5-14.5); White Blood Cell Count 6.4 10^3/uL (4.8-10.8)
[2023-09-13 05:29] LABS: ALT (SGPT) 30 U/L (0-35); AST (SGOT) 60 U/L (14-36); Albumin 1.5 g/dl (3.5-5.0); Alkaline Phosphatase 165 U/L (38-126); Blood Urea Nitrogen 9 mg/dl (7-17); Calcium 8.2 mg/dl (8.4-10.2); Carbon Dioxide 19 mmol/L (22-30); Chloride 108 mmol/L (98-107); Estimated Creatinine Clearance 82 ml/min; Glucose 103 mg/dl (70-99); Magnesium 1.7 mg/dl (1.6-2.3); Phosphorus 2.5 mg/dl (2.5-4.5); Potassium 5.3 mmol/L (3.5-5.1); Sodium 131 mmol/L (135-145); Total Bilirubin 0.2 mg/dl (0.2-1.3); Total Protein 3.8 g/dl (6.3-8.2); eGFR > 60.00
[2023-09-13] MEDS: LOPRESSOR 25 MG TUBE ×2 (09:14→20:14)
[2023-09-13] MEDS: HEPARIN 5000 UNITS SC ×2 (09:15→20:14)
[2023-09-13] MEDS: GENTAMICIN 0.1% CREAM 1 APPLIC TOPICAL (09:16)
[2023-09-13] MEDS: DESENEX/MITRAZOL/ZEASORB 1 APPLIC TOPICAL ×2 (09:16→20:13)
[2023-09-13] MEDS: DICLOFENAC 1% TOPICAL GEL 4 GRAM TOPICAL (09:17)
[2023-09-13] MEDS: HYDROPHOR 1 APPLIC TOPICAL (09:18)
--- NOTE | 2023-09-13 09:34 | W.PN.HOSP.TC ---
Today's Communication/Plan
-
Continue tube feeds
Labs in the morning
Assessment / Plan
Assessment / Plan
Gen-AAOx3, NAD, chronically ill
HEENT-NC, AT, anicteric, clear oral mm
Neck-supple
CV-reg, no M, +S1/S2
Lungs-clear B/L
Abd-soft, NT, ND
Ext-no edema
Musculoskeletal-no cyanosis, clubbing
Skin-warm and dry
Neuro-grossly non-focal
Psych-calm, cooperative
Rapid atrial fibrillation -new diagnosis. Cardiology consulted. Converted back to sinus rhythm last night. Rates are currently controlled on metoprolol 25 mg twice daily. Needs to start Eliquis next week after PEG tube placement.
Echocardiogram shows LVEF 60 to 65%, mild LVH, mild AR. Dense mitral annular calcification with moderate MS.
Failure to thrive -due to severe malnutrition, dysphagia, etc. At this point in time her only option is either a feeding tube or hospice if she wishes for nonaggressive means of treatment. Patient not interested in hospice.
No evidence of adrenal insufficiency. TSH 1.8.
Plan for PEG tube placement this hospitalization. GI following. Dobbhoff tube placed, tube feeds to begin per GI service. I spoke with Dr. Li, she believes that a PEG tube will not be straightforward procedure for her and wants to try her on
tube feeds via DHT to make sure she tolerates before we move forward with PEG tube next week.
Chronic hyponatremia -sodium 131. Urine osmolality 690, urine sodium 43. Serum osmolality 271. Appears euvolemic. Suspect ADH excess. Fluid restriction. Currently on tube feeds.
Hypokalemia -overcorrected and now hyperkalemic. Potassium discontinued. Will recheck tomorrow.
Hypoglycemia - likely due to malnutrition. Glucose improved.
Elevated transaminases with normal GGT -transaminases trending down. Alkaline phosphatase elevated. Bilirubin normal. Etiology unclear. Monitor for now.
Asymptomatic pyuria -urine culture sent. Hold antibiotics for now. No signs of infection systemically. Urine culture shows mixed tova likely contamination.
Chronic microcytic anemia -hemoglobin down to 8.5, will monitor. No evidence of bleeding. Stools have been brown and loose. Suspect chronic inflammatory anemia. Iron panel in July did not reveal iron deficiency. B12 and folic acid levels normal.
Advanced RA
Functional quadriplegia
History of C. difficile colitis -completed treatment. Reason for metronidazole? I tried to call [facility] nursing call but unable to connect with anyone.
Essential hypertension -blood pressure readings are better when using her arm.
Hyperlipidemia
GERD
Depression
Chronic heart failure unknown type
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
Full code
Dispo -back to [facility] when medically stable.
Anticipated Discharge: > 48 hours
Subjective/Interval History
-
Date of Service: September 13, 2023
Patient seen and examined. Slept well. No complaints.
Objective Data
-
Labs:
Laboratory Results
09/13/23
05:05
WBC 6.4
Hgb 8.5 L
Hct 26.4 L
Plt Count 236
Sodium 131 L
Potassium 5.3 H
Chloride 108 H
Carbon Dioxide 19 L
BUN 9
Creatinine 0.2 L
Glucose 103 H
Calcium 8.2 L
Total Bilirubin 0.2
AST 60 H
ALT 30
Alkaline Phosphatase 165 H
Vital Signs:
Vital Signs
Temp Pulse Resp BP Pulse Ox
97.5 F 87 13 102/60 98
09/13/23 07:54 09/13/23 09:14 09/13/23 09:09 09/13/23 09:14 09/13/23 09:09
I&O
09/12/23 09/13/23 09/14/23
06:59 06:59 06:59
Intake Total 1915 / 1915 1200 / 1200
Output Total 850 / 850 725 / 725 120 / 120
Balance 1065 / 1065 475 / 475 -120 / -120
Review of Systems
-
History Source: Patient
All other systems: Reviewed and negative
[2023-09-13 12:46] LABS: Glucose - Point of Care 128 mg/dl (70-99)
[2023-09-13] MEDS: TYLENOL ORAL SOLUTION 650 MG TUBE ×2 (16:48→20:33)
[2023-09-13 18:17] LABS: Glucose - Point of Care 99 mg/dl (70-99)
[2023-09-13] MEDS: DICLOFENAC 1% TOPICAL GEL 2 GRAM TOPICAL (20:13)
[2023-09-13] MEDS: COMPAZINE 5 MG IV (20:18)
--- NOTE | 2023-09-13 20:45 | PTCARENOTE ---
aaox3 - tolerating tube feedings at goal rate through Dobbhoff through right nare. - colostomy intact. purewick in place. Tylenol given for c/o pain. pt reposition.
[2023-09-13 23:42] LABS: Glucose - Point of Care 119 mg/dl (70-99)
[2023-09-14] VITALS (8 sets, daily range): BP systolic 84–108; BP diastolic 43–73; BMI 27.4
[2023-09-14] MEDS: TYLENOL ORAL SOLUTION 650 MG TUBE ×2 (04:19→12:13)
[2023-09-14] MEDS: COMPAZINE 5 MG IV ×2 (04:20→12:13)
[2023-09-14 06:03] LABS: Glucose - Point of Care 82 mg/dl (70-99)
[2023-09-14 06:27] LABS: % Basophils 0.4 % (0-2); % Immature Granulocytes 1.5 % (0-0.5); % Lymphocytes 12.1 % (20.5-51.1); % Monocytes 7.6 % (1.7-9.3); % Neutrophils 78.4 % (42.2-75.2); Absolute Immature Granulocytes 0.1 10^3/uL (0-0.05); Absolute Monocytes 0.6 10^3/uL (0.1-0.6); Absolute Neutrophils 6.6 10^3/uL (1.4-6.5); Hematocrit 27.6 % (37.0-47.0); Hemoglobin 9.2 g/dL (12.0-16.0); Mean Corp Hgb Conc. 33.3 g/dL (33.0-37.0); Mean Corpuscular Hgb 24.6 pg (27.0-31.0); Mean Corpuscular Volume 73.8 fL (81.0-99.0); Mean Platelet Volume 9.4 fL (7.4-10.4); Nucleated Red Blood Cells % 0 %; Platelet Count 244 10^3/uL (130-400); Red Blood Cell Count 3.74 10^6/uL (4.20-5.40); Red Cell Dist. Width 18.5 % (11.5-14.5); White Blood Cell Count 8.4 10^3/uL (4.8-10.8)
[2023-09-14 06:36] LABS: ALT (SGPT) 23 U/L (0-35); AST (SGOT) 30 U/L (14-36); Albumin 1.7 g/dl (3.5-5.0); Alkaline Phosphatase 181 U/L (38-126); Blood Urea Nitrogen 13 mg/dl (7-17); Calcium 8.5 mg/dl (8.4-10.2); Carbon Dioxide 20 mmol/L (22-30); Chloride 105 mmol/L (98-107); Estimated Creatinine Clearance 82 ml/min; Glucose 85 mg/dl (70-99); Magnesium 1.5 mg/dl (1.6-2.3); Potassium 5.5 mmol/L (3.5-5.1); Sodium 128 mmol/L (135-145); Total Bilirubin 0.3 mg/dl (0.2-1.3); Total Protein 4.4 g/dl (6.3-8.2); eGFR > 60.00
[2023-09-14] MEDS: DESENEX/MITRAZOL/ZEASORB 1 APPLIC TOPICAL (08:41)
[2023-09-14] MEDS: HYDROPHOR 1 APPLIC TOPICAL (08:42)
[2023-09-14] MEDS: DICLOFENAC 1% TOPICAL GEL 2 GRAM TOPICAL (08:42)
[2023-09-14] MEDS: GENTAMICIN 0.1% CREAM 1 APPLIC TOPICAL (08:42)
[2023-09-14] MEDS: HEPARIN 5000 UNITS SC (08:43)
[2023-09-14] MEDS: LOPRESSOR 25 MG TUBE (08:47)
--- NOTE | 2023-09-14 10:50 | W.PN.UPDATE ---
Update Note
Progress Note Update
patient is agreeable for PEG tomorrow
stop tube feeding and NPO after MN
medical team to correct electrolytes
--- NOTE | 2023-09-14 11:19 | W.PN.HOSP.TC ---
Today's Communication/Plan
-
N.p.o. after midnight
Assessment / Plan
Assessment / Plan
Gen-AAOx3, NAD, chronically ill
HEENT-NC, AT, anicteric, clear oral mm
Neck-supple
CV-reg, no M, +S1/S2
Lungs-clear B/L
Abd-soft, NT, ND
Ext-no edema
Musculoskeletal-no cyanosis, clubbing
Skin-warm and dry
Neuro-grossly non-focal
Psych-calm, cooperative
Rapid atrial fibrillation -new diagnosis. Cardiology consulted. Currently in sinus rhythm. Rates are currently controlled on metoprolol 25 mg twice daily. Needs to start Eliquis next week after PEG tube placement.
Echocardiogram shows LVEF 60 to 65%, mild LVH, mild AR. Dense mitral annular calcification with moderate MS.
Failure to thrive -due to severe malnutrition, dysphagia, etc. At this point in time her only option is either a feeding tube or hospice if she wishes for nonaggressive means of treatment. Patient not interested in hospice.
No evidence of adrenal insufficiency. TSH 1.8.
Tolerating tube feeds via Dobbhoff tube.
GI plans on PEG tube placement on Friday.
Chronic hyponatremia -sodium 128, fluctuating. Urine osmolality 690, urine sodium 43. Serum osmolality 271. Appears euvolemic. Suspect ADH excess. Fluid restriction. Currently on tube feeds. Consult nephrology if hyponatremia worsens.
Hyperkalemia -give a dose of Lokelma today. Recheck labs in the morning.
Hypoglycemia - likely due to malnutrition. Glucose improved.
Elevated transaminases with normal GGT -transaminases trending down. Alkaline phosphatase elevated. Bilirubin normal. Etiology unclear. Monitor for now.
Asymptomatic pyuria -urine culture sent. Hold antibiotics for now. No signs of infection systemically. Urine culture shows mixed tova likely contamination.
Chronic microcytic anemia -hemoglobin stable at 9.2. No evidence of bleeding. Stools have been brown and loose. Suspect chronic inflammatory anemia. Iron panel in July did not reveal iron deficiency. B12 and folic acid levels normal.
Advanced RA
Functional quadriplegia
History of C. difficile colitis -completed treatment. Reason for metronidazole? I tried to call [facility] nursing call but unable to connect with anyone.
Essential hypertension -blood pressure readings are better when using her arm.
Hyperlipidemia
GERD
Depression
Chronic heart failure unknown type
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
Full code
Dispo -back to alf when medically stable.
Anticipated Discharge: > 48 hours
Subjective/Interval History
-
Date of Service: September 14, 2023
Patient seen and examined. No complaints.
Objective Data
-
Labs:
Laboratory Results
09/14/23 09/14/23
05:56 06:08
WBC 8.4
Hgb 9.2 L
Hct 27.6 L
Plt Count 244
Sodium 128 L
Potassium 5.5 H
Chloride 105
Carbon Dioxide 20 L
BUN 13
Creatinine 0.3 L
Glucose 85
Calcium 8.5
Total Bilirubin 0.3
AST 30
ALT 23
Alkaline Phosphatase 181 H
Vital Signs:
Vital Signs
Temp Pulse Resp BP Pulse Ox
97.6 F 96 15 102/65 99
09/14/23 11:18 09/14/23 08:47 09/14/23 08:00 09/14/23 08:47 09/14/23 06:15
I&O
09/13/23 09/14/23 09/15/23
06:59 06:59 06:59
Intake Total 1200 / 1200 1220 / 1220
Output Total 725 / 725 470 / 470 100 / 100
Balance 475 / 475 750 / 750 -100 / -100
Review of Systems
-
History Source: Patient
All other systems: Reviewed and negative
[2023-09-14 12:07] LABS: Glucose - Point of Care 76 mg/dl (70-99)
[2023-09-14] MEDS: LOKELMA 10 GRAM TUBE (12:09)
--- NOTE | 2023-09-14 13:00 | PTCARENOTE ---
Patient calling out, patient states, 'Help me. I feel so sick.' Tube feeds on hold, Compazine given at 1313 and Tylenol for back pain.
--- NOTE | 2023-09-14 14:58 | PTCARENOTE ---
RN reassessing patient's c/o nausea. Patient still c/o feeling sick, then started vomiting brown fluid. Patient suctioned and cleaned up. Patient again started profusely vomiting. Yankauer kept in mouth as patient vomited two additional times.
Patient is now gurgling, HR 130, sats 82% RA. Physician made aware, O2 NC placed, patient continues to be elevated at 55 degrees. Oder to removed dobhoff, place NGT.
--- NOTE | 2023-09-14 15:03 | W.PN.UPDATE ---
Update Note
Progress Note Update
Informed by nurse that patient had a severe episode of vomiting and subsequent aspiration. Acute hypoxic respiratory failure.
On exam she has audible rhonchi at the bedside without use of stethoscope.
Tube feeds were shut off at 1 PM.
Continue off tube feeds. Remove Dobbhoff tube and place nasogastric tube for decompression of the stomach as patient still with nausea and anticipate that she will continue to vomit.
Currently on nasal cannula oxygen, if ineffective we will need to change to mid to low or high flow oxygen to provide support.
I left a voicemail for 2 daughters to call me back.
At this point in time I do not see a safe window of opportunity for PEG tube placement and recommend readdressing goals of care with family.
I left a voicemail for the GI service to call me back.
--- NOTE | 2023-09-14 15:38 | W.PN.UPDATE ---
Update Note
Progress Note Update
Patient unfortunately coded and went into respiratory and subsequent cardiac arrest.
Code 9 was called and ACLS was initiated. Cardiology and emergency room assisted. Patient was intubated.
Despite all heroic efforts patient passed and did not survive. Family informed.
--- NOTE | 2023-09-14 17:00 | PTCARENOTE ---
[facility] [phone]. Patient does not meet criteria for donation. Family at bedside.
--- NOTE | 2023-09-14 18:19 | PTCARENOTE ---
Patients family took personal belongings home
== END 2023-09-14 15:38 | disposition expired | DRG 640 ==
LOC: IMU 23:29
PROVIDERS: Clinical Nurse Specialist Family Health; ADMITTING PHYSICIAN Internal Medicine; ATTENDING PHYSICIAN Hospitalist; CONSULT PHYSICIAN Internal Medicine; EMERGENCY PHYSICIAN Emergency Medicine; FAMILY PHYSICIAN Internal Medicine; OTHER PHYSICIAN Internal Medicine Cardiovascular Disease; OTHER PHYSICIAN Surgery
DX: E43 Unspecified severe protein-calorie malnutrition (principal); J96.01 Acute respiratory failure with hypoxia; R53.2 Functional quadriplegia; E87.1 Hypo-osmolality and hyponatremia; G93.40 Encephalopathy, unspecified; B37.0 Candidal stomatitis; D84.9 Immunodeficiency, unspecified; E87.20 Acidosis, unspecified; R13.10 Dysphagia, unspecified; E16.2 Hypoglycemia, unspecified; R62.7 Adult failure to thrive; K22.4 Dyskinesia of esophagus; E87.5 Hyperkalemia; I48.0 Paroxysmal atrial fibrillation; I46.9 Cardiac arrest, cause unspecified; T17.918A Gastric contents in respiratory tract, part unspecified causing other injury, initial encounter; R11.2 Nausea with vomiting, unspecified; E87.6 Hypokalemia; M06.9 Rheumatoid arthritis, unspecified; I50.9 Heart failure, unspecified; I11.0 Hypertensive heart disease with heart failure; E86.1 Hypovolemia; D50.9 Iron deficiency anemia, unspecified; E86.0 Dehydration; Z68.25 Body mass index [BMI] 25.0-25.9, adult; I95.9 Hypotension, unspecified; E66.01 Morbid (severe) obesity due to excess calories; S31.103A Unspecified open wound of abdominal wall, right lower quadrant without penetration into peritoneal cavity, initial encounter; X58.XXXA Exposure to other specified factors, initial encounter; R74.01 Elevation of levels of liver transaminase levels; R82.81 Pyuria; G47.00 Insomnia, unspecified; K21.9 Gastro-esophageal reflux disease without esophagitis; K44.9 Diaphragmatic hernia without obstruction or gangrene; E78.00 Pure hypercholesterolemia, unspecified; F32.A Depression, unspecified; F41.9 Anxiety disorder, unspecified; E88.09 Other disorders of plasma-protein metabolism, not elsewhere classified; M54.50 Low back pain, unspecified; G89.29 Other chronic pain; Z93.3 Colostomy status; Z74.01 Bed confinement status; Z86.19 Personal history of other infectious and parasitic diseases
CPT/HCPCS: 74018; 74177; 80053; 81003; 81015; 82533; 82962; 82977; 83036; 83605; 83735; 83930; 83935; 84100; 84134; 84300; 84443; 85025; 87040; 87070; 87086; 92526; 92610; 93005; 93306; 99285; Q9967